=== PATIENT | male | born 1965 | race Caucasian/White ===

== ENCOUNTER → 2017-03-01 13:58 | Outpatient (CLI) | payer BC, SELFPAY ==
--- NOTE | 2017-03-01 | XR_ITS ---
XR foot LT min 3V HISTORY: ITS.REASON: BILATERAL FOOT PAIN ORDERING PHYSICIAN: Renay Cross DPM PATIENT AGE: 51 years COMPARISON: None FINDINGS: Weightbearing views are performed. There is mild pes planus. There is some sclerosis with osteoarthritic change of the anterior subtalar joint as well as the calcaneocuboid joint. No fracture or dislocation. No lytic change. IMPRESSION: Mild pes planus with osteoarthritic change of the calcaneocuboid joint and anterior subtalar joint
--- NOTE | 2017-03-01 | XR_ITS ---
XR foot RT min 3V HISTORY: ITS.REASON: BILATERAL FOOT PAIN ORDERING PHYSICIAN: Renay Cross DPM PATIENT AGE: 51 years COMPARISON: None FINDINGS: Weightbearing views are performed. There is moderate medial subluxation of the navicular with osteoarthritic changes of the talonavicular joint and navicular cuneiform joint as well as the first metatarsal tarsal joint. There is moderate pes planus with hypertrophic changes dorsally of the distal talus, navicular, and cuneiform. No acute fracture or destructive process. A calcific density is present lateral to the base of the first metatarsal suggesting an osteophyte. IMPRESSION: Pes planus with medial subluxation of the navicular with osteoarthritic changes of the midfoot
== END ==
PROVIDERS: PCP Emergency Medicine; Visit Provider Podiatrist
DX: M79.671 Pain in right foot (principal); M79.672 Pain in left foot
CPT/HCPCS: 73630

== ENCOUNTER → 2017-03-11 15:12 | Outpatient (REF) | payer BC, SELFPAY ==
[2017-03-11 20:16] LABS: Amphetamine/Metha Screen,Urine Negative ng/mL (<1000); Barbiturates Screen,Urine Negative ng/mL (<200); Benzodiazepines Screen,Urine Positive ng/mL (200); Cannabinoid Screen,Urine Positive ng/mL (<50); Cocaine Screen,Urine Negative ng/g (<300); Methadone Screen,Urine Negative ng/mL (<300); Opiate Screen,Urine Positive ng/mL (<300); Phencyclidine Screen,Urine Negative ng/mL (<25)
== END ==
LOC: LAB 15:12
PROVIDERS: Visit Provider Nurse Practitioner Family
DX: Z79.899 Other long term (current) drug therapy (principal)
CPT/HCPCS: 80305

== ENCOUNTER → 2017-03-18 09:21 | Outpatient (POV) | payer BC, SELFPAY | PROVIDERS: Visit Provider Podiatrist | DX: Z00.00 Encounter for general adult medical examination without abnormal findings (principal) ==

== ENCOUNTER → 2017-04-29 11:02 | Outpatient (POV) | payer BC, SELFPAY | PROVIDERS: PCP Podiatrist; Visit Provider Podiatrist | DX: Z00.00 Encounter for general adult medical examination without abnormal findings (principal) ==

== ENCOUNTER → 2018-06-12 10:57 | Outpatient (CLI) | payer BC, SELFPAY ==
--- NOTE | 2018-06-12 11:01 | FL_ITS ---
FL barium swallow modified: 06/12/2018 11:01 AM CLINICAL HISTORY: Traumatic brain injury, dysphasia ORDERING PHYSICIAN: Referral Provider, PATIENT AGE: 53 years Comparison: None TECHNIQUE: Patient administered varying consistencies of barium contrast, while viewed in lateral position under real-time fluoroscopy with cine recording. FLUOROSCOPY TIME: 3 minutes The study was performed in conjunction with speech pathologist. Please see that report & recommendations. FINDINGS: Patient was given varying consistencies of barium. There is mild penetration into the that she will with thin liquids Strahl. No tracheal aspiration is evident. There is some residual was some difficulty in bolus formation and moderate residual with full-thickness. IMPRESSION: Its tibial penetration with thin liquids with straw with moderate residual Please see speech pathologist report and recommendations.
== END ==
PROVIDERS: PCP Emergency Medicine; Visit Provider Physical Medicine & Rehabilitation
DX: S06.9X0A Unspecified intracranial injury without loss of consciousness, initial encounter (principal); R26.9 Unspecified abnormalities of gait and mobility
CPT/HCPCS: 70371

== ENCOUNTER → 2018-07-13 14:09 | Outpatient (CLI) | payer BC, SELFPAY ==
--- NOTE | 2018-07-13 14:15 | MR_ITS ---
MR cervical spine wo con, MR 3-d myelogram/MRCP HISTORY: RT hand numbness. RT hand and shoulder pain. ITS.REASON: CERVICAL FRACTURE, NUMBNESS AND TINGLING RT HAND ORDERING PHYSICIAN: Kendal Weston PATIENT AGE: 53 years Comparison: CT 09-23-16 TECHNIQUE: Standard multiplanar multiecho sequences are performed without contrast. 3-D MIP and myelographic images are also rendered and reviewed FINDINGS: There is generalized motion artifact which somewhat decreases fine detail. There is normal alignment. The craniocervical junction has an unremarkable appearance. C2-C3: Mild degenerative disc disease. C3-C4: Mild degenerative disc disease with minimal bulging disc. C4-C5: Mild degenerative disc disease. Mild left foraminal narrowing from uncovertebral and facet hypertrophy C5-C6: Moderate degenerative disc disease C6-C7: Moderate degenerative disc disease with endplate hypertrophic change. C7-T1: Unremarkable. No disc herniation or canal stenosis. No acute fracture. IMPRESSION: Multilevel degenerative disc disease as described above. No disc herniation or canal stenosis
== END ==
PROVIDERS: PCP Emergency Medicine; Referring Provider Nurse Practitioner Family; Visit Provider Nurse Practitioner Family
DX: S12.100A Unspecified displaced fracture of second cervical vertebra, initial encounter for closed fracture (principal); S12.9XXA Fracture of neck, unspecified, initial encounter; G95.9 Disease of spinal cord, unspecified
CPT/HCPCS: 72141; 76376

== ENCOUNTER 2018-08-07 12:00 | Outpatient (RCR) | payer BC, SELFPAY ==
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
== END 2018-08-07 12:05 | disposition home or self-care (01) ==
LOC: ST 12:00
DX: S06.9X0A Unspecified intracranial injury without loss of consciousness, initial encounter (principal)
CPT/HCPCS: 92507; 92523; 92611

== ENCOUNTER 2018-08-18 11:00 | Outpatient (RCR) | payer BC, SELFPAY | END 2018-08-18 11:05 | disposition home or self-care (01) | LOC: PT 11:00 | DX: R26.9 Unspecified abnormalities of gait and mobility (principal); M54.5 Low back pain; S06.9X0A Unspecified intracranial injury without loss of consciousness, initial encounter; V89.2XXA Person injured in unspecified motor-vehicle accident, traffic, initial encounter | CPT/HCPCS: 97010; 97014; 97110; 97112; 97116; 97163; 97164; G0283 ==

== ENCOUNTER → 2018-08-18 13:35 | Outpatient (CLI) | payer BC, SELFPAY ==
--- NOTE | 2018-08-18 13:40 | MR_ITS ---
MR shoulder RT wo/w con HISTORY:Right shoulder pain, limited range of motion, prior injury ITS.REASON: right shoulder pain ORDERING PHYSICIAN: Sathish Clayton MD PATIENT AGE: 53 years Comparison: None TECHNIQUE: Standard multiplanar multiecho sequences are performed without and with gadolinium enhancement. Contrast. FINDINGS: There is thickening of the supraspinatus tendon with increased T2 signal distally consistent with tendinopathy/tendinosis. There is fraying of the undersurface of the supraspinatous tendon suggesting partial tear. The infraspinatus, subscapularis, and teres minor tendons appear intact. Cortical irregularity involves the humeral head laterally at the region of the insertion of the supraspinatus tendon with some subcortical cystic change at this area consistent with degenerative changes. The bicipital tendon is in place. There does appear to be a tear of the anterior glenoid labrum superiorly/SLAP injury. A small amount fluid around the bicipital tendon sheath. There are degenerative changes of the acromioclavicular joint. There is some mild enhancement of the AC joint suggesting some underlying inflammatory change IMPRESSION: 1. Tendinopathy/tendinosis of the supraspinatus tendon with fraying along the undersurface of the supraspinatus tendon consistent with partial tear. A complete tear with tendinous and muscular retraction is NOT identified 2. SLAP tear of the anterior glenoid labrum. 3. Degenerative changes of the acromioclavicular joint. Subarticular cystic change of the humeral head consistent with degenerative change
== END ==
PROVIDERS: PCP Emergency Medicine; Visit Provider Emergency Medicine
DX: M25.511 Pain in right shoulder (principal)
CPT/HCPCS: 73223; A9576

== ENCOUNTER 2018-08-22 11:00 | Outpatient (RCR) | payer BC, SELFPAY ==
--- NOTE | 2018-06-19 11:30 | SW/DCPLANNER ---
Received phone call from RAILWAY SIGNAL OPERATOR (Cecilia Hagen) stating that this patient is interested in drug/alcohol resources for outpatient services at this time. I did speak with patient during his OT session and he has stated that he is interested in [facility] in [place]. I spoke with patients mother whom was also present during my visit. I informed patients mother regarding process for making appointment for [facility] and that patient would need to speak with him. Patients mother stated that she would assist patient in calling and making appointment. My name and phone number along with other resources: AA services in [place], have been presented to this patient.
== END 2018-08-22 11:05 | disposition home or self-care (01) ==
LOC: OT 11:00
DX: S06.9X0A Unspecified intracranial injury without loss of consciousness, initial encounter (principal); R26.9 Unspecified abnormalities of gait and mobility; M54.5 Low back pain; V89.2XXA Person injured in unspecified motor-vehicle accident, traffic, initial encounter
CPT/HCPCS: 97110; 97140; 97164; 97166

== ENCOUNTER → 2018-09-25 13:50 | Outpatient (CLI) | payer BC, SELFPAY ==
--- NOTE | 2018-09-25 13:52 | FL_ITS ---
PROCEDURE: FL BARIUM SWALLOW MODIFIED CLINICAL INDICATION: dysphasia COMPARISON: No exams were available for comparison TECHNIQUE: Patient administered varying consistencies of barium contrast, while viewed in lateral position under real-time fluoroscopy with cine recording. FLUOROSCOPY TIME: The study was performed in conjunction with speech pathologist. Please see that report & recommendations. FINDINGS: Patient was given varying consistencies of barium. No evidence tibia penetration or tracheal aspiration IMPRESSION: Unremarkable modified barium swallow. Please see speech pathologist report and recommendations. Dictated by: Watson Burk MD 09/25/2018 14:43 Signed by: <Electronically signed by Watson Burk MD in [place]> 09/25/2018 14:43
--- NOTE | 2018-09-25 14:54 | HMH.SLMBS2 ---
Speech & Language Evaluation Speech/Language Mod Barium Swallow Start: 09/25/18 14:41 Freq: once Status: Complete Protocol: Document 09/25/18 14:41 SADE (Rec: 09/25/18 14:54 SADE [id number]) [facility] Recommendations Diet Dietary Recommendations Regular,Thin Liquids Treatment/Strategies Treatment Recommendation Vocal Cord Adduction Exer Strategy/Precaution Recommend Sitting Upright (90 deg),Chin Tuck,Small Bites and Sips, Alternate Liquids/Solids Mod Barium Swallow Impressions Summary and Impressions Oral Phase Impression No Impairment (WFL) Oral Phase Summary No impairments noted in oral phase noted. Pharyngeal Phase Impression Mild Impairment Pharyngeal Phase Summary Mohit penetrated with thin liquids and aspirated on thin liquids when given large volume to swallow pills. Chin tuck improved swallow of thin liquids. Speech/Language MBS Assessment/Goals/Plan Assessment Date of Evaluation: 09/25/18 Evaluation Type Initial Certification Assessment/Problems Dysphagia Does Patient Qualify for Service Yes Qualify/Failure Comment Due to aspiration of thin liquids, it is recommended that Mohit be seen in outpatient therapy. Recommendations PHYSICIAN CERTIFICATION: The specified therapy services are required, authorized, and reviewed every 30 days. Pt will be seen # times/week 1 for # weeks 4 Diet Recommendations Normal Liquid Type Recommendations Normal/Thin SL Swallow Guidelines High aspiration risk Crush Meds Small pills w/applesauce,Small OK/Crush large pill Dysphagia Swallow Precautions/Strategies Sitting Upright (90 deg),Chin Tuck,Small Bites and Sips, Alternate Liquids/Solids Plan Anticipate reaching STG in # weeks 2 Anticipate reaching LTG in # weeks 4 Pt/Guardian verbally ack understanding Yes of dx/prognosis/goals G -code Required No STG-Asp During/Laryngeal Closure Use chin-down position w/wo cues #trials 3 Use Valsalva maneuver w/wo cues in # 5 trials STG-Asp Aft/[place]-Laryng elevation Produce /i/ in continuous fashion, incl. 10 fasetto in # trials Heel Cutter Goals Diet Regular with Liquids Thin Liquids Mod Barium Swallow Setup Exam Setup Radiologist Watson Burk Level of Consciousness Awake,Alert,Appropriate,
== END ==
PROVIDERS: PCP Emergency Medicine; Visit Provider Emergency Medicine
DX: R47.02 Dysphasia (principal)
CPT/HCPCS: 70371; 92611

== ENCOUNTER 2018-10-03 13:41 | Outpatient (RCR) | payer BC, SELFPAY ==
--- NOTE | 2018-10-03 14:40 | HMH.SLDYSPHA ---
Speech & Language Evaluation Speech/Language Dysphagia Evaluation Start: 10/03/18 14:22 Freq: ONCE Status: Active Protocol: Document 10/03/18 14:22 SADE (Rec: 10/03/18 14:40 SADE [id number]) Dysphagia Assess/Goals/Plan Assessment Date of Evaluation: 10/03/18 Evaluation Type Initial Certification Assessment/Problems Dysphagia Does Patient Qualify for Service Yes Qualify/Failure Comment MBS reports aspiration with thin liquids. Recommendations PHYSICIAN CERTIFICATION: The specified therapy services are required, authorized, and reviewed every 30 days. Pt will be seen # times/week 1 for # weeks 4 Diet Recommendations Normal Liquid Type Recommendations Normal/Thin SL Swallow Guidelines Standard Aspiration Prec. Dysphagia Swallow Precautions/Strategies Sitting Upright (90 deg),Chin Tuck,Supraglottic Swallow, Small Bites and Sips,Alternate Liquids/Solids Plan Pt/Guardian verbally ack understanding Yes of dx/prognosis/goals G -code Required No STG-Asp Aft/Laryn.Vest.-Mistiming Use chin-down position for specified 3 consistencies w/wo cues in # trials Use Supraglottic swallow for specified 3 consitencies w/wo cues in #trials Produce i/in continuous fashion, incl. 10 fasetto in # trials Mcfp Goals Diet Regular with Liquids Thin Liquids General Information General Current Food Consistancy Regular,Thin Liquids Denture Type Full- Upper & Lower Facial Symmetry Symmetrical Patient Orientation Person,Place,Time Ability to Follow Directions Excellent Oral Expression Ability No Impairment Dysphagia:Food Presentation Evaluation Food Type Pureed,Chopped,Regular,Liquid Dysphagia Evaluation Summary Mohit was given the following consistencies: thins via straw and open cup, pudding, pureed , mechanical soft, regular. No signs of dysphagia were noted however based on modified barium swallow study, aspiration was noted iwth thin liquids. Mohit was given HEP to complete at home to increase strength of laryngeal and tongue muscles. Stroke Dysphagia Assessment PHYSICIAN CERTIFICATION: I certify the specified therapy services for Mohit Brunson are required, authorized, and reviewed every 30 days.
== END 2018-10-03 13:45 | disposition home or self-care (01) ==
LOC: ST 13:41
PROVIDERS: Visit Provider Emergency Medicine
DX: R13.10 Dysphagia, unspecified (principal)
CPT/HCPCS: 92610

== ENCOUNTER → 2018-11-13 13:29 | Outpatient (CLI) | payer BC, SELFPAY ==
--- NOTE | 2018-11-13 13:32 | XR_ITS ---
PROCEDURE: XR SHOULDER RT MIN 2V CLINICAL INDICATION: ap, scapular Y, anxillary views Pain following injury FINDINGS: No acute fracture or dislocation. Minimal calcification at the joint space of the AC joint. IMPRESSION: No acute findings. Dictated by: Watson Burk MD 11/13/2018 16:38 Electronically signed by Watson Burk MD in [place] 11/13/2018 16:38
== END ==
PROVIDERS: PCP Emergency Medicine; Visit Provider Orthopaedic Surgery
DX: M25.511 Pain in right shoulder (principal)
CPT/HCPCS: 73030

== ENCOUNTER → 2019-07-11 13:03 | Outpatient (CLI) | payer BC, SELFPAY ==
[2019-07-11 14:20] LABS: Basophils # 0.1 K/mm3 (0-0.2); Eosinophils # 0.2 K/mm3 (0.0-0.4); Eosinophils % 2.7 % (0.1-12.0); Hematocrit 49.1 % (42.0-52.0); Hemoglobin 17.2 g/dL (14.1-18.0); Lymphocytes # 1.9 K/mm3 (0.7-4.5); Lymphocytes % 30.6 % (10-50); Mean Corpuscular Hemoglobin 34.4 pg (27.0-31.2); Mean Corpuscular Volume 98.5 fl (80-94); Mean Platelet Volume 9.3 fl (7.4-10.4); Monocytes # 0.4 K/mm3 (0.1-1.0); Monocytes % 6.4 % (1.7-9.3); Neutrophils # 3.7 K/mm3 (1.8-7.8); Neutrophils % 59.4 % (37.0-80.0); Platelet Count 191 K/mm3 (142-424); Red Blood Count 4.99 M/mm3 (4.60-6.20); Red Cell Distribution Width 13.2 % (11.5-17.5); White Blood Count 6.3 K/mm3 (4.8-10.8)
[2019-07-11 14:33] LABS: Chloride 105 mmol/L (98-107)
[2019-07-11 14:34] LABS: Potassium 3.9 mmoL/L (3.5-5.1); Sodium 142 mmol/L (136-145)
[2019-07-11 14:36] LABS: Alanine Aminotransferase 132 U/L (12-78); Anion Gap 14.9 mEq/L (5-15); Aspartate Amino Transferase 92 U/L (17-59); Bilirubin,Total 1.6 mg/dl (0.2-1.3); Blood Urea Nitrogen 19 mg/dl (9-20); Carbon Dioxide 26 mmol/L (22.0-30.0); Estimated Glomerular Filt Rate 100 ml/min (>60); GFR (African American) 121 ML/MIN (>60)
[2019-07-11 14:37] LABS: Albumin Level 4.5 g/dl (3.5-5.0); Albumin/Globulin Ratio 1.1 (1.1-1.8); Alkaline Phosphatase 67 U/L (38-126); Calcium 9.3 mg/dl (8.4-10.2); Chol/HDL Ratio 5.1 (1-3.5); Cholesterol 163 mg/dl (140-200); Globulin 4.1 g/dL (1.3-3.2); Glucose 115 mg/dl (74-100); HDL Cholesterol 32 mg/dl (40-60); Total Protein,Serum 8.6 g/dl (6.3-8.2); Triglycerides 138 mg/dl (30-150); VLDL Cholesterol 28 mg/dL (0-40)
[2019-07-11 15:26] LABS: Direct LDL Cholesterol 123.68 mg/dL (100-129)
[2019-07-11 15:47] LABS: Thyroid Stimulating Hormone 0.52 uIU/mL (0.465-4.68)
[2019-07-11 17:22] LABS: Free T4 (Free Thyroxine) 1.27 ng/dl (0.78-2.19)
[2019-07-12 10:01] LABS: Vitamin D 25 Hydroxy 36.4 ng/mL (30.0-100.0)
== END ==
PROVIDERS: Visit Provider Emergency Medicine
DX: S06.9X9A Unspecified intracranial injury with loss of consciousness of unspecified duration, initial encounter (principal)
CPT/HCPCS: 80053; 80061; 82652; 84439; 84443; 85025

== ENCOUNTER → 2019-07-19 12:53 | Outpatient (CLI) | payer BC, SELFPAY ==
--- NOTE | 2019-07-19 12:54 | FL_ITS ---
PROCEDURE: FL BARIUM SWALLOW MODIFIED CLINICAL INDICATION: dysphagia COMPARISON: No exams were available for comparison TECHNIQUE: Patient administered varying consistencies of barium contrast, while viewed in lateral position under real-time fluoroscopy with cine recording. FLUOROSCOPY TIME:1 minutes and 47 seconds The study was performed in conjunction with speech pathologist. Please see that report & recommendations. FINDINGS: Patient was given varying consistencies of barium. There was mild delay with premature spillage. No aspiration or penetration. There is mild residual.. IMPRESSION: No aspiration or penetration. There is premature spillage with mild residual Please see speech pathologist report and recommendations. Dictated by: Watson Burk MD 07/25/2019 17:36 Electronically signed by Watson Burk MD in [place] 07/25/2019 17:36
--- NOTE | 2019-07-19 12:54 | XR_ITS ---
PROCEDURE: XR CHEST 2V CLINICAL HISTORY: shortness of breath COMPARISON: No exams were available for comparison FINDINGS: The cardiomediastinal silhouette and pulmonary vascularity are within normal limits. There are low lung volumes. No lobar consolidation or collapse. No acute bony abnormalities. IMPRESSION: No acute findings. Dictated by: Watson Burk MD 07/19/2019 13:42 Electronically signed by Watson Burk MD in [place] 07/19/2019 13:42
--- NOTE | 2019-07-19 13:59 | HMH.SLMBS2 ---
Speech & Language Evaluation Speech/Language Mod Barium Swallow Start: 07/19/19 13:44 Freq: once Status: Complete Protocol: Document 07/19/19 13:44 SADE (Rec: 07/19/19 13:59 SADE [id number]) General Information General Current Food Consistancy Mechanical Soft,Thin Liquids Dentition Lower Only,Partial - Upper Oxygen Status Room Air Facial Symmetry Patient Baseline Patient Orientation Person,Place,Time,Situation Ability to Follow Directions Good Communication Ability Moderate Impairment MBS Recommendations Diet Dietary Recommendations Mechanical Soft,Thin Liquids Treatment/Strategies Treatment Recommendation Chewing Exercises,Compens. Strategy Educat.,Vocal Cord Adduction Exer Strategy/Precaution Recommend Sitting Upright (90 deg) Mod Barium Swallow Impressions Summary and Impressions Oral Phase Impression Mild Impairment Oral Phase Summary Mohit has a new upper plate that he has yet to master eating with. He exhibits decreased mastication with mechanical soft and regular consistencies. Pharyngeal Phase Impression Mild Impairment Pharyngeal Phase Summary Mohit exhibited flash penetration with thin wash however aspiration was not noted. He exhibited pharyngeal residue in valleculae but cleared with a dry swallow. Speech/Language MBS Assessment/Goals/Plan Assessment Date of Evaluation: 07/19/19 Evaluation Type Initial Certification Assessment/Problems Dysphagia Does Patient Qualify for Service Yes Qualify/Failure Comment It is recommended that Mr. Brunson be referred for outpatient speech therapy targeting dysphagia. Recommendations PHYSICIAN CERTIFICATION: The specified therapy services are required, authorized, and reviewed every 30 days. Pt will be seen # times/week 2 for # weeks 4 Diet Recommendations Mechanical Soft Liquid Type Recommendations Normal/Thin SL Swallow Guidelines Alt bite w/sip thru meal, Standard Aspiration Prec., Crush meds as allowed* Crush Meds Small OK/Crush large pill Dysphagia Swallow Precautions/Strategies Turn Head Left,Chin Tuck,Small Bites and Sips,Alternate Liquids/Solids Plan Anticipate reaching STG in # weeks 2
== END ==
PROVIDERS: PCP Emergency Medicine; Visit Provider Emergency Medicine
DX: R06.02 Shortness of breath (principal); R13.10 Dysphagia, unspecified
CPT/HCPCS: 70371; 71046; 92611

== ENCOUNTER → 2019-07-19 13:33 | Outpatient (CLI) | payer BC, SELFPAY ==
[2019-07-20 10:13] LABS: Hep A Ab, IgM Negative (Negative); Hepatitis B Core Antibody IgM Negative (Negative); Hepatitis B Surface Antigen Negative (Negative)
[2019-07-20 11:18] LABS: Hepatitis C Antibody >11.0 s/co ratio (0.0-0.9)
[2019-07-27 15:10] LABS: HCV Genotype Charge YES; Hepatitis C Genotype 3 (.)
== END ==
PROVIDERS: Emergency Medicine; Visit Provider Physician Assistant
DX: R74.8 Abnormal levels of other serum enzymes (principal)
CPT/HCPCS: 36415; 80074; 87522; 87902

== ENCOUNTER 2019-08-29 11:00 | Outpatient (RCR) | payer BC, SELFPAY ==
--- NOTE | 2019-08-07 18:18 | HMH.SLDYSPHA ---
Speech & Language Evaluation Speech/Language Dysphagia Evaluation Start: 08/07/19 16:09 Freq: ONCE Status: Active Protocol: Document 08/07/19 10:50 CMAY (Rec: 08/07/19 16:38 CMAY [id number]) Dysphagia Assess/Goals/Plan Assessment Date of Evaluation: 08/07/19 Evaluation Type Initial Certification Assessment/Problems Dysphagia Does Patient Qualify for Service Yes Qualify/Failure Comment Based on the results of today' s evaluation and previous MBSS completed on 07/19/2019, Mr. Brunson qualifies for ST services to monitor diet and to complete swallowing exercises. Recommendations PHYSICIAN CERTIFICATION: The specified therapy services are required, authorized, and reviewed every 30 days. Pt will be seen # times/week 1 for # weeks 4 Diet Recommendations Mechanical Soft Liquid Type Recommendations Normal/Thin SL Swallow Guidelines Alt bite w/sip thru meal, Standard Aspiration Prec., Crush meds as allowed*,Eat at slow rate Dysphagia Swallow Precautions/Strategies Sitting Upright (90 deg),Chin Tuck,Small Bites and Sips, Alternate Liquids/Solids Plan Anticipate reaching STG in # weeks 4 Anticipate reaching LTG in # weeks 4 Pt/Guardian verbally ack understanding Yes of dx/prognosis/goals Pt/Guardian verbally ack understanding Yes of/consent to tx prog G -code Required No STG-Other Comment/Non-Specific 1.) Patient will accurately complete 80% of lingual exercises, tongue-base retraction exercises, base of tongue exercises, and hyolaryngeal/pharyngeal exercises provided in order to strengthen swallowing muscles and improve safety during intake. 2.) Patient will recall and utilize swallowing safety strategies during intake based on ST observation and caregiver report 100% of opportunites with minimal verbal prompts/reminders in place. Education Instructions provided Education provided to patient regarding swallowing safety
== END 2019-08-29 12:00 | disposition home or self-care (01) ==
LOC: ST 11:00
PROVIDERS: PCP Emergency Medicine; Visit Provider Physician Assistant
DX: R13.10 Dysphagia, unspecified (principal)
CPT/HCPCS: 92507; 92526; 92610

== ENCOUNTER → 2019-12-19 13:37 | Outpatient (CLI) | payer BC, SELFPAY ==
[2019-12-19 13:39] LABS: MANUAL DIFFERENTIAL MANUAL DIFFERENTIAL (MANUAL DIFF)
[2019-12-19 13:55] LABS: Basophils # 0.1 K/mm3 (0-0.2); Basophils % 0.7 % (0.1-2.0); Eosinophils # 0.2 K/mm3 (0.0-0.4); Eosinophils % 3.1 % (0.1-12.0); Hematocrit 47.4 % (42.0-52.0); Hemoglobin 15.9 g/dL (14.1-18.0); Lymphocytes # 1.9 K/mm3 (0.7-4.5); Lymphocytes % 31.2 % (10-50); Mean Corpuscular HGB Conc 33.5 g/dL (31.8-35.4); Mean Corpuscular Hemoglobin 33.6 pg (27.0-31.2); Mean Corpuscular Volume 100.1 fl (80-94); Mean Platelet Volume 8.5 fl (7.4-10.4); Monocytes # 0.5 K/mm3 (0.1-1.0); Monocytes % 7.3 % (1.7-9.3); Neutrophils # 3.6 K/mm3 (1.8-7.8); Neutrophils % 57.7 % (37.0-80.0); Platelet Count 162 K/mm3 (142-424); Red Blood Count 4.73 M/mm3 (4.60-6.20); Red Cell Distribution Width 12.9 % (11.5-17.5); White Blood Count 6.2 K/mm3 (4.8-10.8)
[2019-12-19 14:23] LABS: Alanine Aminotransferase 139 U/L (12-78); Albumin Level 4.2 g/dl (3.5-5.0); Alkaline Phosphatase 72 U/L (38-126); Aspartate Amino Transferase 107 U/L (17-59); Bilirubin,Total 1.3 mg/dl (0.2-1.3); Blood Urea Nitrogen 17 mg/dl (9-20); Calcium 9.3 mg/dl (8.4-10.2); Carbon Dioxide 27 mmol/L (22.0-30.0); Chloride 105 mmol/L (98-107); Estimated Glomerular Filt Rate 100 ml/min (>60); GFR (African American) 121 ML/MIN (>60); Globulin 4.2 g/dL (1.3-3.2); Glucose 133 mg/dl (74-100); Sodium 140 mmol/L (136-145); Total Protein,Serum 8.4 g/dl (6.3-8.2)
[2019-12-19 17:02] LABS: Eosinophils % 1 % (0-3); Lymphocytes % 30 % (10-50); Macrocytosis 1+; Monocytes % 7 % (2-9); Neutrophils % 62 % (42-76); Platelet Estimate Normal; RBC Morphology Normal; Total Cells Counted 100
== END ==
PROVIDERS: Visit Provider Otolaryngology
DX: R13.10 Dysphagia, unspecified (principal)
CPT/HCPCS: 36415; 80053; 85007; 85014; 85018; 85048; 85049

== ENCOUNTER → 2019-12-20 09:01 | Outpatient (CLI) | payer BC, SELFPAY ==
--- NOTE | 2019-12-20 09:01 | FL_ITS ---
PROCEDURE: FL BARIUM SWALLOW CLINICAL INDICATION: hx trach and TBI Trouble swallowing, dysphagia with liquids and solids COMPARISON: CT CT SOFT TISSUE NECK WO/W CON from 12/20/2019 TECHNIQUE: In the upright position the patient was observed to swallow barium in both the AP and lateral view. The cervical esophagus was examined under fluoroscopy with images obtained. The patient was then placed prone in the right anterior oblique position and was observed to swallow barium with Valsalva technique . FLUOROSCOPY TIME: 1 minutes and 17 seconds FINDINGS: There was no evidence of aspiration. There was normal peristalsis. No filling defects or mucosal abnormalities. No masses or strictures. No hiatal hernia. IMPRESSION: Unremarkable barium swallow. Dictated by: Watson Burk MD 12/20/2019 17:40 Watson Burk MD in [place] 12/20/2019 17:40
--- NOTE | 2019-12-20 09:01 | CT_ITS ---
PROCEDURE: CT SOFT TISSUE NECK WO/W CON CLINICAL HISTORY: dysphagia hx of trach tbi COMPARISON: CT CSWO CT CERVICAL SPINE W/O CONT from 09/23/[address] head/brain wo con from 10/09/2017 TECHNIQUE: Oral Contrast: None IV Contrast: 75 mL Isovue 370 Axial images obtained with sagittal and coronal reformats. All CT scans at the facility use one or more dose reduction, viz: automated exposure control, ma/kV adjustment per patient size (including targeted exams where dose is matched to indication, i.e. head), or iterative reconstruction technique. FINDINGS: The nasopharynx, uvula, oropharynx, hypopharynx, epiglottis and glottic region all have an unremarkable appearance. There are few small cervical lymph nodes. No dominant adenopathy. No abnormal fluid collection or abscess. Skin defect is present at the cricoid region consistent with patient's history of prior tracheostomy. No evidence of residual fistula. The lung apices are clear. No mastoid effusion or sinus air-fluid level is evident. There are mild degenerative changes in the cervical spine. Minimal mucosal thickening involves the frontal ethmoid sinus area IMPRESSION: No acute finding. No abscess mass or adenopathy. Prior tracheostomy Dictated by: Watson Burk MD 12/21/2019 09:55 Watson Burk MD in [place] 12/21/2019 09:55
== END ==
PROVIDERS: PCP Emergency Medicine; Visit Provider Otolaryngology
DX: R13.10 Dysphagia, unspecified (principal)
CPT/HCPCS: 70492; 74220; Q9967

== ENCOUNTER → 2020-05-02 14:22 | Outpatient (CLI) | payer BC, SELFPAY ==
[2020-05-02 15:10] LABS: Basophils # 0.1 K/mm3 (0-0.2); Basophils % 0.7 % (0.1-2.0); Eosinophils # 0.3 K/mm3 (0.0-0.4); Eosinophils % 3.8 % (0.1-12.0); Hemoglobin 16.3 g/dL (14.1-18.0); Lymphocytes % 26.6 % (10-50); Mean Corpuscular HGB Conc 33.9 g/dL (31.8-35.4); Mean Corpuscular Hemoglobin 33.3 pg (27.0-31.2); Mean Corpuscular Volume 98.1 fl (80-94); Mean Platelet Volume 8.3 fl (7.4-10.4); Monocytes # 0.4 K/mm3 (0.1-1.0); Monocytes % 5.5 % (1.7-9.3); Neutrophils # 4.7 K/mm3 (1.8-7.8); Neutrophils % 63.4 % (37.0-80.0); Platelet Count 192 K/mm3 (142-424); Red Blood Count 4.89 M/mm3 (4.60-6.20); Red Cell Distribution Width 13.4 % (11.5-17.5); White Blood Count 7.4 K/mm3 (4.8-10.8)
[2020-05-02 16:16] LABS: Alanine Aminotransferase 150 U/L (12-78); Albumin Level 4.5 g/dl (3.5-5.0); Albumin/Globulin Ratio 1.1 (1.1-1.8); Alkaline Phosphatase 69 U/L (38-126); Anion Gap 14.4 mEq/L (5-15); Aspartate Amino Transferase 112 U/L (17-59); Bilirubin,Total 0.8 mg/dl (0.2-1.3); Blood Urea Nitrogen 20 mg/dl (9-20); Calcium 9.7 mg/dl (8.4-10.2); Carbon Dioxide 24 mmol/L (22.0-30.0); Chloride 103 mmol/L (98-107); Cholesterol 195 mg/dl (140-200); Estimated Glomerular Filt Rate 87 ml/min (>60); GFR (African American) 106 ML/MIN (>60); Globulin 4.2 g/dL (1.3-3.2); Glucose 126 mg/dl (74-100); HDL Cholesterol 28 mg/dl (40-60); Potassium 4.4 mmoL/L (3.5-5.1); Sodium 137 mmol/L (136-145); Total Protein,Serum 8.7 g/dl (6.3-8.2); Triglycerides 143 mg/dl (30-150); VLDL Cholesterol 29 mg/dL (0-40)
[2020-05-02 16:27] LABS: Direct LDL Cholesterol 131.68 mg/dL (100-129)
[2020-05-02 16:32] LABS: Free T4 (Free Thyroxine) 1.17 ng/dl (0.78-2.19)
[2020-05-02 16:38] LABS: 25-OH Vitamin D, Total 39.3 ng/mL (30-100)
[2020-05-02 16:47] LABS: Thyroid Stimulating Hormone 0.56 uIU/mL (0.465-4.68)
== END ==
PROVIDERS: Visit Provider Emergency Medicine
DX: R60.9 Edema, unspecified (principal); E55.9 Vitamin D deficiency, unspecified; Z79.899 Other long term (current) drug therapy
CPT/HCPCS: 36415; 80053; 80061; 82306; 84439; 84443; 85025

== ENCOUNTER → 2020-05-13 13:58 | Outpatient (CLI) | payer BC, SELFPAY ==
[2020-05-13 14:51] LABS: INR 1.05 (0.9-1.1); Prothrombin Time 12.3 seconds (10.1-12.5)
[2020-05-13 16:34] LABS: Vitamin B12 847 pg/mL (239-931)
[2020-05-14 09:13] LABS: Hemoglobin A1C 5.5 % (4.0-6.0)
[2020-05-16 22:40] LABS: Hepatitis C Genotype 3 (.)
== END ==
PROVIDERS: Visit Provider Emergency Medicine
DX: B19.20 Unspecified viral hepatitis C without hepatic coma (principal); R73.9 Hyperglycemia, unspecified; R71.8 Other abnormality of red blood cells
CPT/HCPCS: 36415; 82607; 82746; 83036; 85610; 87522

== ENCOUNTER → 2020-05-26 13:06 | Outpatient (CLI) | payer BC, SELFPAY ==
--- NOTE | 2020-05-26 13:07 | FL_ITS ---
PROCEDURE: FL BARIUM SWALLOW MODIFIED CLINICAL INDICATION: dysphagia COMPARISON: No exams were available for comparison TECHNIQUE: Patient administered varying consistencies of barium contrast, while viewed in lateral position under real-time fluoroscopy with cine recording. FLUOROSCOPY TIME:1 minutes and 45 seconds The study was performed in conjunction with speech pathologist. Please see that report & recommendations. FINDINGS: Patient was given varying consistencies of barium. There was some premature spillage and mild residual noted with multiple consistencies. No aspiration or penetration apparent. IMPRESSION: Mild impairment. No aspiration evident. Please see speech pathologist report and recommendations. Dictated by: Watson Burk MD 05/31/2020 09:23 Watson Burk MD in [place] 05/31/2020 09:23
--- NOTE | 2020-05-26 13:46 | HMH.SLMBS2 ---
Speech & Language Evaluation Speech/Language Mod Barium Swallow Start: 05/26/20 13:38 Freq: once Status: Complete Protocol: Document 05/26/20 13:38 SADE (Rec: 05/26/20 13:45 SADE [id number]) General Information General Current Food Consistancy Regular,Thin Liquids Dentition Upper & Lower Dentures Oxygen Status Room Air Facial Symmetry Patient Baseline Patient Orientation Person,Place,Time Ability to Follow Directions Excellent Communication Ability No Impairment MBS Recommendations Diet Dietary Recommendations Regular,Thin Liquids Treatment/Strategies Strategy/Precaution Recommend Sitting Upright (90 deg),No Straw Mod Barium Swallow Impressions Summary and Impressions Oral Phase Impression Mild Impairment Oral Phase Summary Mr. Brunson was given the following consistencies: thins via open cup and straw, pudding, mechanical soft, regular, and pill with thin wash. Premature spillage into the laryngeal vestibule was noted with straws. Pharyngeal Phase Impression Mild Impairment Pharyngeal Phase Summary It was noted that Mr. Brunson had vallecular residue with pill via thin wash. Speech/Language MBS Assessment/Goals/Plan Assessment Date of Evaluation: 05/26/20 Evaluation Type Initial Certification Does Patient Qualify for Service Yes Qualify/Failure Comment Mr. Brunson is a current patient in the outpatient rehab. Recommendations PHYSICIAN CERTIFICATION: The specified therapy services are required, authorized, and reviewed every 30 days. SL Swallow Guidelines Standard Aspiration Prec. Dysphagia Swallow Precautions/Strategies Sitting Upright (90 deg),No Straw,Small Bites and Sips, Alternate Liquids/Solids Plan Pt/Guardian verbally ack understanding Yes of dx/prognosis/goals G -code Required No Mod Barium Swallow Setup Exam Setup Radiologist Watson Burk Level of Consciousness Awake,Alert,Appropriate, Follows Commands Position (degrees) 90 Mod Barium Swallow-Lat View Textures Lateral View Food Presentation Thin Liquid via Cup,Thin Liquid via Straw,Pureed Food- Thick,Ground Food- Regular, Barium Tablet,Regular Food, Pudding Oral Phase Labial Closure No Impairment (WFL) Bolu
== END ==
PROVIDERS: PCP Emergency Medicine; Visit Provider Emergency Medicine
DX: R13.10 Dysphagia, unspecified (principal)
CPT/HCPCS: 70371; 92611

== ENCOUNTER 2020-06-17 13:00 | Outpatient (RCR) | payer BC, SELFPAY ==
--- NOTE | 2020-05-02 13:58 | XR_ITS ---
PROCEDURE: XR CHEST 2V CLINICAL HISTORY: shortness of breath COMPARISON: DX XR CHEST 2V from 07/19/2019 FINDINGS: The cardiomediastinal silhouette and pulmonary vascularity are within normal limits. The lungs are clear without infiltrates, suspicious nodules, or pleural effusions. No acute bony abnormalities. IMPRESSION: No acute findings. Dictated by: Watson Burk MD 05/02/2020 15:51 Watson Burk MD in [place] 05/02/2020 15:51
--- NOTE | 2020-05-02 18:39 | HMH.SLDYSPHA ---
Speech & Language Evaluation Speech/Language Dysphagia Evaluation Start: 05/02/20 16:43 Freq: ONCE Status: Active Protocol: Document 05/02/20 16:43 CARA (Rec: 05/02/20 17:01 CMAY [id number]) Dysphagia Assess/Goals/Plan Assessment Date of Evaluation: 05/02/20 Evaluation Type Initial Certification Assessment/Problems Dysphagia Does Patient Qualify for Service Yes Qualify/Failure Comment Based on the results of today' s evaluation, Mr. Brunson qualifies for ST services to target diet monitoring and compliance with swallowing safety strategies. Recommendations PHYSICIAN CERTIFICATION: The specified therapy services are required, authorized, and reviewed every 30 days. Pt will be seen # times/week 1 for # weeks 12 Diet Recommendations Mechanical Soft with Chopped Meats Liquid Type Recommendations Normal/Thin SL Swallow Guidelines Assist w/all meals,Alt bite w/ sip thru meal,Standard Aspiration Prec.,Crush meds as allowed*,Eat at slow rate Dysphagia Swallow Precautions/Strategies Sitting Upright (90 deg),No Straw,Liquids from Cup,Small Bites and Sips,Alternate Liquids/Solids Plan Anticipate reaching STG in # weeks 8 Anticipate reaching LTG in # weeks 12 Pt/Guardian verbally ack understanding Yes of dx/prognosis/goals Pt/Guardian verbally ack understanding Yes of/consent to tx prog G -code Required No STG-Other Comment/Non-Specific 1.) Mr. Brunson will participate in diet monitoring and will tolerate LRD with no s/s of penetration/aspiration across 3 sessions. 2.) Mr. Brunson will demonstrate compliance with diet recommendations and swallow safety strategies as evidenced by ST observation and patient /parent verbal report across 3 sessions. 3.) Mr. Brunson will complete a modified barium swallow study (MBSS) to r/o aspiration/ penetration and further assess safety of his swallow. Concrete Craftsman Goals Diet LRD with Liquids Thin Liquids
== END 2020-06-17 13:05 | disposition home or self-care (01) ==
LOC: ST 13:00
PROVIDERS: PCP Emergency Medicine; Visit Provider Emergency Medicine
DX: R13.10 Dysphagia, unspecified (principal)
CPT/HCPCS: 71046; 92526; 92610

== ENCOUNTER 2020-06-21 11:07 | Inpatient (IN) | payer BC, SELFPAY ==
[2020-06-21] VITALS (25 sets, daily range): BP systolic 104–161; BP diastolic 67–104; PULSE 96–109; RESP 14–20; TEMP 36.1–37.5; O2SAT 90–99; BMI 27.2; BMI 29.5
--- NOTE | 2020-06-21 11:17 | CT_ITS ---
PROCEDURE INFORMATION: Exam: CT Abdomen And Pelvis With Contrast Exam date and time: 06/21/2020 11:17 AM Age: 55 years old Clinical indication: Abdominal pain; Localized; Right lower quadrant (rlq); Patient HX: Rlq ttp x 2 days with n/v/d, PT had a barium swallow and stn CT TECHNIQUE: Imaging protocol: Computed tomography of the abdomen and pelvis with contrast. Radiation optimization: All CT scans at this facility use at least one of these dose optimization techniques: automated exposure control; mA and/or kV adjustment per patient size (includes targeted exams where dose is matched to clinical indication); or iterative reconstruction. Contrast material: ISOVUE; Contrast volume: 75 ml; Contrast route: IV; COMPARISON: No relevant prior studies available. FINDINGS: Lungs: Mild subsegmental atelectasis greatest in the posterior lower lungs. No focal consolidation Liver: Micronodular contours of the liver, raising the possibility of cirrhosis, see coronal series 601, image 38. . No hepatomegaly or discrete liver mass. Calcified capsular granuloma series 3, image 45. Gallbladder and bile ducts: Some minimally dense material pooling dependently in the gallbladder series 3, image 56, which could be sludge or low-density stones. No calcified stones. No gallbladder wall thickening or pericholecystic fluid seen. No biliary dilatation. Pancreas: Slight fatty atrophic changes in the pancreas. No ductal dilatation or mass. Spleen: Mild splenomegaly approximate 13.9 cm. Adrenal glands: The adrenal glands are normal. Kidneys and ureters: The kidneys are normal. The ureters are normal. Stomach and bowel: Thickened appearance of the lower right colon which may be due to inflammation or contracted loop. Diverticulosis coli. No definite findings of acute diverticulitis; right lower quadrant phlegmon appears more likely originating from the appendix, less likely a perforated cecal diverticulitis. No acute findings in the small intestine. Prominent thickened, edematous appearance of the visualized esophagus worrisome for esophagitis, or less likely infiltrative neoplasm, see axial series 3 images 2-32. Wall measures up to 9 mm thickness. Appendix: Findings highly suspicious for a perforated appendicitis. Neck of the appendix is thickened and 9 mm on series 3, image 97. There is dense material distal to this in the appendix which could be inspissated barium or appendicoliths. There is retrocecal phlegmon with soft tissue stranding and extraluminal gas bubbles in the mesentery, series 3 images 87-97. No organized pericolic abscess collection. Trace edema fluid in the right pericolic gutter. Intraperitoneal space: Right lower quadrant phlegmon with mesenteric gas bubbles, soft tissue stranding, and trace fluid. No organized abscess collection. No lamont pneumoperitoneum/anterior free air in the peritoneal space. Vasculature: Minimal calcified atherosclerotic plaques in the abdomen and pelvis.There is no aortic aneurysm. No portal venous gas. Lymph nodes: Mild portacaval adenopathy, mild periportal and gastrohepatic adenopathy. Enlarged nodes up to 2.8 x 1.6 cm coronal series 601, image 45 and 2.0 x 1.4 cm series 3, image 50. Urinary bladder: The bladder is normal. Reproductive: Prostate calcifications. No significant prostate enlargement. Seminal vesicles are unremarkable. Bones/joints: Spinal degenerative changes, greatest at L4-L5 with prominent bilateral facet arthropathy, grade 1 degenerative anterolisthesis, severe disc degeneration. There is multilevel degenerative disc disease and spondylosis in the thoracic and lumbar spine. Minimal chronic anterior wedge
[2020-06-21 11:37] LABS: Basophils # 0.1 K/mm3 (0-0.2); Basophils % 0.5 % (0.1-2.0); Eosinophils # 0.1 K/mm3 (0.0-0.4); Eosinophils % 0.6 % (0.1-12.0); Hematocrit 51.6 % (42.0-52.0); Hemoglobin 17.3 g/dL (14.1-18.0); Lymphocytes # 1.6 K/mm3 (0.7-4.5); Mean Corpuscular HGB Conc 33.5 g/dL (31.8-35.4); Mean Corpuscular Hemoglobin 33.4 pg (27.0-31.2); Mean Corpuscular Volume 99.6 fl (80-94); Mean Platelet Volume 8.9 fl (7.4-10.4); Monocytes # 1.6 K/mm3 (0.1-1.0); Monocytes % 6.9 % (1.7-9.3); Neutrophils # 19.1 K/mm3 (1.8-7.8); Platelet Count 195 K/mm3 (142-424); Red Blood Count 5.19 M/mm3 (4.60-6.20); Red Cell Distribution Width 12.7 % (11.5-17.5); White Blood Count 22.4 K/mm3 (4.8-10.8)
[2020-06-21 11:40] LABS: MANUAL DIFFERENTIAL MANUAL DIFFERENTIAL (MANUAL DIFF)
[2020-06-21 11:47] LABS: Alanine Aminotransferase 118 U/L (12-78); Albumin Level 4.9 g/dl (3.5-5.0); Albumin/Globulin Ratio 0.9 (1.1-1.8); Alkaline Phosphatase 82 U/L (38-126); Anion Gap 16.7 mEq/L (5-15); Aspartate Amino Transferase 70 U/L (17-59); Bilirubin,Total 2.6 mg/dl (0.2-1.3); Blood Urea Nitrogen 26 mg/dl (9-20); Calcium 9.9 mg/dl (8.4-10.2); Carbon Dioxide 27 mmol/L (22.0-30.0); Chloride 100 mmol/L (98-107); Creatinine Clearance Estimated 112 mL/min (50-200); Estimated Glomerular Filt Rate 87 ml/min (>60); GFR (African American) 106 ML/MIN (>60); Globulin 5.2 g/dL (1.3-3.2); Glucose 155 mg/dl (74-100); Lipase 39 U/L (23-300); Potassium 3.7 mmoL/L (3.5-5.1); Sodium 140 mmol/L (136-145); Total Protein,Serum 10.1 g/dl (6.3-8.2)
[2020-06-21 12:14] LABS: Lymphocytes % 9 % (10-50); Monocytes % 7 % (2-9); Neutrophils % 84 % (42-76); Total Cells Counted 100
[2020-06-21 12:15] LABS: Platelet Estimate Normal; RBC Morphology Normal
--- NOTE | 2020-06-21 13:40 | PC.NURSE ---
Surgeon transportation department supervisor paged.
--- NOTE | 2020-06-21 13:45 | PC.NURSE ---
Dr Leggett speaking with Dr Fry
--- NOTE | 2020-06-21 13:47 | PC.NURSE ---
Surgery team paged.
--- NOTE | 2020-06-21 13:50 | PC.NURSE ---
Paged [facility] surgery team at [phone] per ER request. [phone] [facility]est[facility] [phone] Madhavi [address]
[2020-06-21 14:12] LABS: Lactic Acid 1.3 mmol/L (0.7-2.1)
--- NOTE | 2020-06-21 14:25 | HMH.ANESCL ---
[facility] Anesthesia Checklist - Patient Identification Patient Identification: Arm Band - Structural Data Admitted From: Home Planned Operative Procedure/s: Appendectomy Consent for Planned Operative Procedure(s) Verified: Yes - NPO Status Verified Time NPO: 00:00 - Airway Assessment C-Spine Mobility Assessed: Yes TMJ Mobility Assessed: Yes Dentition: Poor Dentition (Missing, decay present) - Neurological Assessment Level of Consciousness: Awake Hx Seizures: No Numbness or tingling in extremities: No - Anesthesia Plan Anesthesia Risk discussed: Yes Anesthesia Plan: Verified ASA Class: III Anesthesia Type: General [facility] History Medical History: Reports:: Anxiety, Depression, Seizures Denies:: Aneurysm, Asthma, Cancer, Congestive Heart Failure, Chronic Obstructive Pulmonary Disease (COPD), Cerebrovascular Accident, Diabetes Mellitus Type 1, Diabetes Mellitus Type 2, Gastroesophageal Reflux Disease(GERD), Hyperlipidemia, Hypertension, Kidney Stones, Myocardial Infarction *Have you ever received a pneumonia vaccine?: No *Have you received a flu vaccine this season?: No Other Medical History: Reports: Arthritis, Other (Hep C, TBI). Denies: Hypothyroidism, Thyroid Disease Anesthesia experience/problems:: None Laterality Cases: Bilateral: Tonsillectomy Other Surgeries: Yes: Colonoscopy, Other Amputation: No Fractures: Yes - *Social History Smoking Status: Never smoker # Packs/Day (cigarettes): 1 Alcohol Intake: never Alcohol Intake Frequency:: holidays/special occasions only Substance Use Type: marijuana *Occupational Status:: disabled Housing: house Household Members: family *Travel in the last 8 weeks: Inside the [facility] - Psychiatric History Pschychiatric History:: Reports:: Anxiety, Depression Family Hx:: Cancer
--- NOTE | 2020-06-21 14:28 | HMH.HP ---
*Admission Date: 06/21/20 *Chief complaint: Abdominal pain *History of present illness: This is a 55-year-old gentleman presents the emergency department with at least a few days history of abdominal pain. He states that he has just been feeling sick for at least a few days maybe a week . No definitive fevers. Some nausea. Appetite is not great . Evaluation in the emergency department revealed leukocytosis and radiographic evidence of likely perforated appendicitis. [facility] History Medical History: Reports:: Anxiety, Depression Denies:: Aneurysm, Asthma, Cancer, Congestive Heart Failure, Chronic Obstructive Pulmonary Disease (COPD), Cerebrovascular Accident, Diabetes Mellitus Type 1, Diabetes Mellitus Type 2, Gastroesophageal Reflux Disease(GERD), Hyperlipidemia, Hypertension, Kidney Stones, Myocardial Infarction, Seizures *Have you ever received a pneumonia vaccine?: No *Have you received a flu vaccine this season?: No Other Medical History: Reports: Arthritis, Other (Hep C, TBI). Denies: Hypothyroidism, Thyroid Disease Anesthesia experience/problems:: None Laterality Cases: Bilateral: Tonsillectomy Other Surgeries: Yes: Colonoscopy, Other Amputation: No Fractures: Yes - *Social History Smoking Status: Never smoker # Packs/Day (cigarettes): 1 Alcohol Intake: never Alcohol Intake Frequency:: holidays/special occasions only Substance Use Type: marijuana *Occupational Status:: disabled Housing: house Household Members: family *Travel in the last 8 weeks: Inside the [place] - Psychiatric History Pschychiatric History:: Reports:: Anxiety, Depression Family Hx:: Cancer Review of Systems - Constitutional Denies chills - Eyes Denies change in vision - ENT Denies difficulty swallowing - *Cardiovascular Denies chest pain - *Respiratory Denies cough - *Gastrointestinal Reports abdominal pain, Reports nausea - *Genitourinary Denies blood in urine - *Musculoskeletal Denies deformity - Integumentary/Breasts Denies new lesions - *Neurologic Denies confusion - Psychiatric Denies anxiety - Endocrine Denies cold intolerance - Hematologic/Lymphatic Denies easy bleeding - Allergic/Immunologic Denies GI upset with certain foods Meds Home Medications Medication Instructions Recorded Confirmed Type Citalopram Hydrobromide [Celexa] See Rx Instructions .ROUTE .COMPLEX 06/21/20 06/21/20 History Folic Acid See Rx Instructions .ROUTE .COMPLEX 06/21/20 06/21/20 History Multivit-Minerals/FA/Lycopene [One See Rx Instructions .ROUTE .COMPLEX 06/21/20 06/21/20 History Daily] Quetiapine Fumarate 100 mg PO BID 06/21/20 06/21/20 History Thiamine HCl [Vitamin B-1] See Rx Instructions .ROUTE .COMPLEX 06/21/20 06/21/20 History Allergies Allergy/AdvReac Type Severity Reaction Status Date / Time No Known Allergies Allergy Verified 06/10/20 14:25 Exam Vital signs and Labs for Last 24 Hours: Temp Pulse Resp BP Pulse Ox 98.3 F 98 H 17 132/93 H 94 L 06/21/20 11:09 06/21/20 13:30 06/21/20 11:09 06/21/20 13:30 06/21/20 13:30 Laboratory Results - last 24 hr 06/21/20 11:29: WBC 22.4 H*, RBC 5.19, Hgb 17.3, Hct 51.6, MCV 99.6 H, MCH 33.4 H, MCHC 33.5, RDW 12.7, Plt Count 195, MPV 8.9, Neut % (Auto) 85.0 H, Lymph % (Auto) 7.0 L, Dyer % (Auto) 6.9, Eos % (Auto) 0.6, Baso % (Auto) 0.5, Neut # (Auto) 19.1 H, Lymph # (Auto) 1.6, Dyer # (Auto) 1.6 H, Eos # (Auto) 0.1, Baso # (Auto) 0.1, Total Counted 100, Neutrophils % (Manual) 84 H, Lymphocytes % (Manual) 9 L, Monocytes % (Manual) 7, Platelet Estimate Normal, RBC Morphology Normal 06/21/20 11:29: Sodium 140, Potassium 3.7, Chloride 100, Carbon Dioxide 27, Anion Gap 16.7 H, BUN 26 H, Creatinine 0.90, Estimated Creat Clear 112, Estimated GFR 87, Est GFR ( Amer) 106, Glucose 155 H, Calcium 9.9, Total Bilirubin 2.6 H, AST 70 H, ALT 118 H, Alkaline Phosphatase 82, Total Protein 10.1 H, Albumin 4.9, Globulin 5.2 H, Albumin/Globulin Ratio 0.9 L,
--- NOTE | 2020-06-21 14:29 | PC.NURSE ---
Dr Leggett at bedside
[2020-06-21 14:35] LABS: Adenovirus,PCR Not Detected (NotDetected); Bordetella Pertussis Not Detected (NotDetected); Chlamydophila Pneumoniae, PCR Not Detected (NotDetected); Coronavirus 19, PCR Not Detected (NotDetected); Coronavirus 229E Not Detected (NotDetected); Coronavirus NL63 Not Detected (NotDetected); Coronavirus OC43 Not Detected (NotDetected); Coronovirus HKU1,PCR Not Detected (NotDetected); Human Metapneumovirus Not Detected (NotDetected); Influenza A, PCR Not Detected (NotDetected); Influenza AH1, 2009 Not Detected (NotDetected); Influenza AH1, PCR Not Detected (NotDetected); Influenza AH3,PCR Not Detected (NotDetected); Influenza B, PCR Not Detected (NotDetected); Mycoplasma Pneumoniae, PCR Not Detected (NotDetected); Parainfluenza 1, PCR Not Detected (NotDetected); Parainfluenza 2, PCR Not Detected (NotDetected); Parainfluenza 3, PCR Not Detected (NotDetected); Parainfluenza 4, PCR Not Detected (NotDetected); Respiratory Syncytial Virus Not Detected (NotDetected)
--- NOTE | 2020-06-21 16:19 | HMH.OPNOTE ---
Date of procedure: 06/21/20 Pre-op Diagnosis:: Perforated appendicitis Post-op Diagnosis:: Perforated appendicitis Procedure performed:: Laparoscopic appendectomy Surgeon:: Giovanni Leggett MD Anesthesia: GETXiao Estimated blood loss (mL): 25 Operative findings:: Necrotic appendicitis with mid/distal perforation Operative note:: After informed consent was obtained the patient was taken to the operating room and placed in the supine position. General anesthesia was induced and his abdomen was prepped and draped in sterile fashion. After infiltration with local anesthetic a supraumbilical incision was made. A Veress needle was placed in position. The abdomen was insufflated. A 12 mm optical trocar was placed in position. Under direct visualization an additional 5 mm trocar was placed in the suprapubic position and an additional 5 mm trocar was placed in the left lower quadrant. Severe inflammation and patchy necrosis was noted along the right lateral sidewall/mid and distal appendix. Severe inflammation and phlegmonous changes were noted throughout. The appendix was carefully elevated and a combination of traction, blunt dissection, and dissection with harmonic fawn was utilized to take down a portion of the mesoappendix. The base of the appendix appeared to be viable. A window was made in the mesoappendix at the base and an Endopath 45 stapling device was used to transect the appendix at its base. The remaining mesoappendix was taken with harmonic fawn. No active bleeding or sign of injury noted. Obvious perforation and feculent spillage was noted. The feculent spillage is very local and evacuated by way of suction. Large volume irrigation of the entire region was also accomplished. The appendix was removed through the supraumbilical trocar site after being placed in a retrieval bag. Pneumoperitoneum was released. Fascia at the supraumbilical trocar site was reapproximated with 0 Ethibond. All wounds were irrigated and skin was reapproximated with interrupted 4-0 Monocryl in a vertical mattress fashion secondary to mild sanguinous ooze. Dressings were applied and the patient was transferred recovery in stable condition after extubation. Condition: stable Disposition: PACU Specimens:: Appendix Complications:: No immediate
--- NOTE | 2020-06-21 16:28 | P.PN_ITS ---
[facility] Anesthesia Record Part I Intake, IV Amount: 900 Estimated blood loss (mL): 25 Urine output (mL): 200 Blood Pressure: 156/99 SaO2: 92 Pulse Rate: 103 Respiratory Rate: 18 Temperature: 97 F Patient is:: Drowsy Stable to PACU at:: 16:25
[2020-06-21 16:55] LABS: Rhinovirus/Enterovirus Detected (NotDetected)
--- NOTE | 2020-06-21 17:04 | PC.NURSE ---
Received report from Tahira in PACU, awaiting Covid swab and then pt will come to floor.
--- NOTE | 2020-06-21 17:12 | PC.NURSE ---
Pt arrived to the floor at this time.
[2020-06-21 17:28] LABS: Microscopic,Cath URINE MICROSCOPIC (MICROSCOPIC)
[2020-06-21 17:40] LABS: Appearance,Urine/Cath CLEAR (Clear); Bilirubin,Cath Negative (Negative); Blood, Urine/Cath Negative (Negative); Color,Urine/Cath ORANGE (Yellow); Glucose,Urine/Cath (UA) Negative (Negative); Ketones,Urine/Cath TRACE (Negative); Leukocyte Esterase,Cath Negative (Negative); Nitrate,Cath Negative (Negative); PH,Urine/Cath 6.5 (5.0-8.5); Protein,Urine/Cath 1+ (Negative); Urobilinogen,Cath 0.2 EU/dl (0.2)
[2020-06-21 17:50] LABS: Bacteria,Urine/Cath 1+ /lpf; Squamous Epithelial Ur./Cath Occasional #/hpf (0-5)
--- NOTE | 2020-06-21 19:13 | HMH.EDGENADL ---
ED Disposition Clinical Impression: Appendicitis Qualifiers: Appendicitis type: acute appendicitis Acute appendicitis type: with localized peritonitis Appendicitis perforation presence: with perforation Appendicitis abscess presence: without abscess Disposition: Admitted As Inpatient Condition on Discharge: Good - Critical Care Critical Care Time: No Attestation: On 06/21/20, the high probability of a clinically significant, sudden or life threatening deterioration of the following system(s) required my full and direct attention, intervention and personal management. The time I documented below is in addition to time spent performing reported procedures but includes the following listed in this critical care notation. Medical Decision Making - Medical Records Medical records reviewed: Yes: I reviewed the patient's medical records. - Chad Inquiry Pt receiving controlled substance: No Vital Signs: 06/21/20 11:09 06/21/20 11:30 06/21/20 12:00 Temperature 98.3 F Temperature Source Oral Pulse Rate 102 H 97 H Pulse Rate [Right] 101 H Respiratory Rate 17 Blood Pressure 145/100 H 140/100 H Blood Pressure [Right Arm] 141/91 H Blood Pressure Mean [Right Arm] 107 02 Sat by Pulse Oximetry 98 93 L 91 L 06/21/20 12:22 06/21/20 12:45 06/21/20 13:30 Temperature Temperature Source Pulse Rate 98 H 96 H 98 H Pulse Rate [Right] Respiratory Rate Blood Pressure 155/104 H 148/98 H 132/93 H Blood Pressure [Right Arm] Blood Pressure Mean [Right Arm] 02 Sat by Pulse Oximetry 93 L 95 94 L - Lab Data Lab Results 06/21/20 11:29: WBC 22.4 H*, RBC 5.19, Hgb 17.3, Hct 51.6, MCV 99.6 H, MCH 33.4 H, MCHC 33.5, RDW 12.7, Plt Count 195, MPV 8.9, Neut % (Auto) 85.0 H, Lymph % (Auto) 7.0 L, Rich % (Auto) 6.9, Eos % (Auto) 0.6, Baso % (Auto) 0.5, Neut # (Auto) 19.1 H, Lymph # (Auto) 1.6, Rich # (Auto) 1.6 H, Eos # (Auto) 0.1, Baso # (Auto) 0.1, Total Counted 100, Neutrophils % (Manual) 84 H, Lymphocytes % (Manual) 9 L, Monocytes % (Manual) 7, Platelet Estimate Normal, RBC Morphology Normal 06/21/20 11:29: Sodium 140, Potassium 3.7, Chloride 100, Carbon Dioxide 27, Anion Gap 16.7 H, BUN 26 H, Creatinine 0.90, Estimated Creat Clear 112, Estimated GFR 87, Est GFR ( Amer) 106, Glucose 155 H, Calcium 9.9, Total Bilirubin 2.6 H, AST 70 H, ALT 118 H, Alkaline Phosphatase 82, Total Protein 10.1 H, Albumin 4.9, Globulin 5.2 H, Albumin/Globulin Ratio 0.9 L, Lipase 39 06/21/20 13:54: Lactate 1.3 06/21/20 13:54: Chlamy pneumoniae PCR Not detected, Adenovirus (PCR) Not detected, B. pertussis DNA (PCR) Not detected, Coronavirus OC43 (PCR) Not detected, Coronavirus HKU1 (PCR) Not detected, Coronavirus 229E (PCR) Not detected, SARS-CoV-2 (PCR) Not detected, Coronavirus NL63 (PCR) Not detected, Human Metapneumovir PCR Not detected, Influenza A (H1) PCR Not detected, Influ A (H1N1/09) PCR Not detected, Influenza A (H3) PCR Not detected, Influenza Type A (PCR) Not detected, Influenza Type B (PCR) Not detected, M. pneumoniae (PCR) Not detected, Parainfluenza 1 (PCR) Not detected, Parainfluenza 2 (PCR) Not detected, Parainfluenza 3 (PCR) Not detected, Parainfluenza 4 (PCR) Not detected, RSV (PCR) Not detected, Entero/Rhino (PCR) Detected A Result diagrams: 06/21/20 11:29 06/21/20 11:29 Orders (Tests/Meds): ED MEDICATIONS Generic Name Dose Route Start Last Admin Trade Name Freq PRN Reason Stop Dose Admin Hydrocodone Bitart/Acetaminophen 1 - 2 tab 06/21/20 16:25 Hydrocodone/Apap 5/325 Mg Tablet PO 07/21/20 16:24 Q6HP PRN Moderate to Severe Pain Citalopram Hydrobromide 10 mg 06/22/20 09:00 Citalopram 10mg Tablet PO 07/22/20 08:59 DAILY NICOLASA Enoxaparin Sodium 40 mg 06/22/20 09:00 Enoxaparin 40mg/0.4ml Syringe SQ 07/22/20 08:59 DAILY NICOLASA Folic Acid 1 mg 06/22/20 09:00 Folic Acid 1mg Tablet PO 07/22/20 08:59 DAILY NICOLASA Metronidazole 500 mg in 100 mls @ 100 mls/h
[2020-06-22] VITALS (9 sets, daily range): BP systolic 103–115; BP diastolic 63–72; PULSE 82–100; RESP 14–24; TEMP 36.8–37.4; O2SAT 91–94; BMI 29.7
--- NOTE | 2020-06-22 02:01 | PC.NURSE ---
patient complained of pain at 2130, 1 mg morphine ivp given and slept for 3 hrs. at 0100 patient woke up moaning complaining of pain again, 1 mg morphine given and patient drank cranberry juice. patient then became nauseated and zofran given ivp. patient appears flushed temp retaken with reading of 100. tylenol given. currently patient resting with eyes closed.
--- NOTE | 2020-06-22 06:22 | PC.NURSE ---
minimal urine output this shift, dark concentrated with strong odor. has difficulty urinating
[2020-06-22 08:43] LABS: Basophils # 0.1 K/mm3 (0-0.2); Basophils % 0.5 % (0.1-2.0); Eosinophils % 0.1 % (0.1-12.0); Hematocrit 44.6 % (42.0-52.0); Lymphocytes # 1.3 K/mm3 (0.7-4.5); Lymphocytes % 10.7 % (10-50); Mean Corpuscular Hemoglobin 32.5 pg (27.0-31.2); Mean Corpuscular Volume 101.8 fl (80-94); Mean Platelet Volume 9.3 fl (7.4-10.4); Monocytes # 0.6 K/mm3 (0.1-1.0); Monocytes % 5.5 % (1.7-9.3); Neutrophils # 9.7 K/mm3 (1.8-7.8); Neutrophils % 83.2 % (37.0-80.0); Platelet Count 127 K/mm3 (142-424); Red Blood Count 4.38 M/mm3 (4.60-6.20); White Blood Count 11.7 K/mm3 (4.8-10.8)
[2020-06-22 08:49] LABS: Alanine Aminotransferase 67 U/L (12-78); Albumin Level 3.4 g/dl (3.5-5.0); Albumin/Globulin Ratio 0.9 (1.1-1.8); Alkaline Phosphatase 50 U/L (38-126); Anion Gap 7.3 mEq/L (5-15); Aspartate Amino Transferase 41 U/L (17-59); Bilirubin,Total 2.6 mg/dl (0.2-1.3); Blood Urea Nitrogen 18 mg/dl (9-20); Carbon Dioxide 27 mmol/L (22.0-30.0); Chloride 103 mmol/L (98-107); Creatinine Clearance Estimated 110 mL/min (50-200); Estimated Glomerular Filt Rate 77 ml/min (>60); GFR (African American) 94 ML/MIN (>60); Globulin 3.6 g/dL (1.3-3.2); Glucose 141 mg/dl (74-100); Potassium 3.3 mmoL/L (3.5-5.1); Sodium 134 mmol/L (136-145)
[2020-06-22 09:00] LABS: Hemoglobin 14.3 g/dL (14.1-18.0)
--- NOTE | 2020-06-22 09:33 | HMH.GSPN ---
Subjective Patient reports: no new complaints, still having pain Progress Note: A&P (1) Acute perforated appendicitis Status: Acute Assessment and plan: Overall, doing well status post laparoscopic appendectomy. Continue IV antibiotics Increase ambulation Toradol ordered (2) Abnormal CT scan, esophagus Status: Acute (3) TBI (traumatic brain injury) Status: Acute (4) Hepatitis C Status: Chronic (5) Hyperbilirubinemia Status: Acute Assessment and plan: Stable. He is scheduled to see gastroenterology/hepatology next week. (6) Cirrhosis Status: Acute Exam Vital signs and Labs for Last 24 Hours: Temp Pulse Resp BP Pulse Ox 98.2 F 91 H 20 107/67 L 91 L 06/22/20 08:00 06/22/20 08:00 06/22/20 08:25 06/22/20 08:00 06/22/20 08:00 Laboratory Results - last 24 hr 06/21/20 11:29: WBC 22.4 H*, RBC 5.19, Hgb 17.3, Hct 51.6, MCV 99.6 H, MCH 33.4 H, MCHC 33.5, RDW 12.7, Plt Count 195, MPV 8.9, Neut % (Auto) 85.0 H, Lymph % (Auto) 7.0 L, [place] % (Auto) 6.9, Eos % (Auto) 0.6, Baso % (Auto) 0.5, Neut # (Auto) 19.1 H, Lymph # (Auto) 1.6, [place] # (Auto) 1.6 H, Eos # (Auto) 0.1, Baso # (Auto) 0.1, Total Counted 100, Neutrophils % (Manual) 84 H, Lymphocytes % (Manual) 9 L, Monocytes % (Manual) 7, Platelet Estimate Normal, RBC Morphology Normal 06/21/20 11:29: Sodium 140, Potassium 3.7, Chloride 100, Carbon Dioxide 27, Anion Gap 16.7 H, BUN 26 H, Creatinine 0.90, Estimated Creat Clear 112, Estimated GFR 87, Est GFR ( Amer) 106, Glucose 155 H, Calcium 9.9, Total Bilirubin 2.6 H, AST 70 H, ALT 118 H, Alkaline Phosphatase 82, Total Protein 10.1 H, Albumin 4.9, Globulin 5.2 H, Albumin/Globulin Ratio 0.9 L, Lipase 39 06/21/20 13:54: Lactate 1.3 06/21/20 13:54: Chlamy pneumoniae PCR Not detected, Adenovirus (PCR) Not detected, B. pertussis DNA (PCR) Not detected, Coronavirus OC43 (PCR) Not detected, Coronavirus HKU1 (PCR) Not detected, Coronavirus 229E (PCR) Not detected, SARS-CoV-2 (PCR) Not detected, Coronavirus NL63 (PCR) Not detected, Human Metapneumovir PCR Not detected, Influenza A (H1) PCR Not detected, Influ A (H1N1/09) PCR Not detected, Influenza A (H3) PCR Not detected, Influenza Type A (PCR) Not detected, Influenza Type B (PCR) Not detected, M. pneumoniae (PCR) Not detected, Parainfluenza 1 (PCR) Not detected, Parainfluenza 2 (PCR) Not detected, Parainfluenza 3 (PCR) Not detected, Parainfluenza 4 (PCR) Not detected, RSV (PCR) Not detected, Entero/Rhino (PCR) Detected A 06/21/20 15:00: Urine Color [place], Urine Appearance Clear, Urine pH 6.5, Ur Specific [place] 1.020, Urine Protein 1+, Urine Glucose (UA) Negative, Urine Ketones Trace, Urine Blood Negative, Urine Nitrate Negative, Urine Bilirubin Negative, Urine Urobilinogen 0.2, Ur Leukocyte Esterase Negative, Urine WBC 3-5, Ur Squamous Epith Cells Occasional, Urine Bacteria 1+ 06/22/20 07:36: WBC 11.7 H D, RBC 4.38 L, Hgb 14.3 D, Hct 44.6, MCV 101.8 H, MCH 32.5 H, MCHC 32.0, RDW 13.0, Plt Count 127 L D, MPV 9.3, Neut % (Auto) 83.2 H, Lymph % (Auto) 10.7, [place] % (Auto) 5.5, Eos % (Auto) 0.1, Baso % (Auto) 0.5, Neut # (Auto) 9.7 H, Lymph # (Auto) 1.3, [place] # (Auto) 0.6, Eos # (Auto) 0.0, Baso # (Auto) 0.1 06/22/20 07:36: Sodium 134 L, Potassium 3.3 L, Chloride 103, Carbon Dioxide 27, Anion Gap 7.3, BUN 18 D, Creatinine 1.00, Estimated Creat Clear 110, Estimated GFR 77, Est GFR ( Amer) 94, Glucose 141 H, Total Bilirubin 2.6 H, AST 41 D, ALT 67 D, Alkaline Phosphatase 50, Total Protein 7.0 D, Albumin 3.4 L D, Globulin 3.6 H, Albumin/Globulin Ratio 0.9 L I & O for Last 24 hours: Intake & Output 06/19/20 06/20/20 06/21/20 06/22/20 11:59 11:59 11:59 11:59 Intake Total 4167 / 4167 Output Total 700 / 700 Balance 3467 / 3467 Weight 190 lb 207 lb 14.334 oz - Constitutional no acute distress - *Routine Respiratory Exam Absent: respiratory distress - *Routine Cardiovascular Exam Present: RRR - *Routine Abdominal Exam Present: sof
[2020-06-22 09:38] LABS: Calcium 7.9 mg/dl (8.4-10.2)
--- NOTE | 2020-06-22 14:31 | P.CONPHA_ITS ---
[facility] Pharmacy VTE Monitoring - Patient Demographics Admission date: 06/21/20 Report Date: 06/22/20 Time: 14:31 Allergies/Adverse Reactions: Patient Allergies No Known Allergies Allergy (Verified 06/10/20 14:25) Height: 1.78 m Weight: 94.3 kg Patient Problems: Current Active Problems Acute perforated appendicitis (Acute) Abnormal CT scan, esophagus (Acute) Appendicitis (Acute) Hyperbilirubinemia (Acute) Cirrhosis (Acute) Hepatitis C (Chronic) TBI (traumatic brain injury) (Acute) - VTE Risk Labs: VTE Related Lab Results Hgb 14.3 g/dL (14.1-18.0) D 06/22/20 07:36 Hct 44.6 % (42.0-52.0) 06/22/20 07:36 Plt Count 127 K/mm3 (142-424) L D 06/22/20 07:36 BUN 18 mg/dl (9-20) D 06/22/20 07:36 Creatinine 1.00 mg/dl (0.66-1.25) 06/22/20 07:36 Estimated Creat Clear 110 mL/min (50-200) 06/22/20 07:36 Was VTE Risk Assessment Performed: Yes VTE Score: 2 VTE Risk Level: Very Low Risk - Prophylaxis VTE Prophylaxis Ordered?: Yes Types of VTE Prophylaxis: IPCS Thigh High, Pharmacological Location of Applied Device: Bilateral Lower Extremeties Pharmacologic Type: Enoxaparin
--- NOTE | 2020-06-22 17:47 | PC.NURSE ---
Remains on room air. Hr regular. Abdomen tender, distended w/ active BS. Lap incisions intact to abdomen, remain unchanged from AM assessment. Denies passing flatus. No BM this shift. Has tolerated gradual advancement of diet today. Has ambulated in hallway twice thus far. Tolerates activity well. Family remain @ bedside. Call karen w/in reach. No needs voiced @ this time
[2020-06-23] VITALS (26 sets, daily range): BP systolic 88–144; BP diastolic 64–82; PULSE 69–191; RESP 16–22; TEMP 36.5–37.1; O2SAT 91–100; BMI 29.8; BMI 29.9
--- NOTE | 2020-06-23 04:10 | ECG_ITS ---
APPROVED REPORT Exam: Resting ECG HR:190 bpm ECG Measurements Heart Rate 190 AXES QRSd 80 QRS -9 QT 236 T 16 QTc 419 Conclusion Supraventricular tachycardia Low voltage QRS Septal infarct, age undetermined Abnormal ECG Electronically signed by : Bassem Rosas, 06/23/2020 17:44:12
--- NOTE | 2020-06-23 04:52 | HMH.RR ---
Acute Rapid Response Note - Subjective Date Responded: 06/23/20 Time Responded: 04:30 Provider Note: pt with acute tachycardia and wheezing and diaphoretic with no chest pain - had recent surg for perforated appendix - has been on lovenox and no vomiting - no reported distention - has been ambulatory- - Objective Findings: Vital Signs - Last 4 Hours Temperature 97.9 F 06/23/20 00:00 Temperature Source Oral 06/23/20 00:00 Pulse Rate 91 H 06/23/20 00:00 Respiratory Rate 16 06/23/20 00:00 Blood Pressure 99/68 L 06/23/20 00:00 Blood Pressure Mean 78 06/23/20 00:00 Blood Pressure Source Automatic Cuff 06/23/20 00:00 Blood Pressure Position Supine 06/23/20 00:00 02 Sat by Pulse Oximetry 100 06/23/20 00:00 Oxygen Delivery Method 06/23/20 02:55 Oxygen Flow Rate (LPM) 2 06/23/20 02:55 - ECG Data Tracing #1 Attestation EKG: I reviewed this ECG and interpreted as documented below: Arrhythmias present: aflutter Ischemic changes: non-specific ST-T wave changes EKG compared to prior tracings: there are no prior tracings available for comparison Rapid Response Exam - General General appearance: alert - Head Head exam: normocephalic - Eye Eye exam: Present: PERRL, EOMI - ENT ENT exam: Present: mucous membranes dry - Neck Neck exam: Present: trachea midline - Respiratory Respiratory exam: Present: wheezes. Absent: respiratory distress - Cardiovascular Cardiovascular exam: Present: tachycardia - Abdominal Exam Abdominal exam: Present: distention. Absent: guarding - Extremities Exam Extremities exam: Absent: calf tenderness - Neurological Exam Neurological exam: Present: alert, oriented X3, CN II-XII intact - Psychiatric Psychiatric exam: Present: normal affect - Skin Skin exam: Absent: rash RR Procedures/Assess/Plan - Assessment and plan all Dx Assessment and Plan for all problems:: acute onset of prob a flutter - grossly stable exam with labs and xray results pending - will give cardizem and lovenox at this time
--- NOTE | 2020-06-23 04:58 | XR_ITS ---
PROCEDURE INFORMATION: Exam: XR Chest Exam date and time: 06/23/2020 4:58 AM Age: 55 years old Clinical indication: Patient HX: Rapid response, increased hr; Additional info: Rapid red TECHNIQUE: Imaging protocol: XR of the chest. Views: 1 view. COMPARISON: CR XR CHEST 2V 05/02/2020 2:13 PM FINDINGS: Lungs: Patchy bilateral infiltrates are seen which have occurred since the prior study. COVID-19 pneumonitis could have this appearance as could other infiltrates pneumonias or areas of atelectasis. Pleural spaces: Unremarkable. No pleural effusion. No pneumothorax. Heart/Mediastinum: Unremarkable. No cardiomegaly. Diaphragm: Interval elevation of the right hemidiaphragm. Bones/joints: Unremarkable. IMPRESSION: Patchy bilateral infiltrates are seen which have occurred since the prior study. COVID-19 pneumonitis could have this appearance as could other infiltrates pneumonias or areas of atelectasis.
[2020-06-23 05:08] LABS: Basophils % 0.4 % (0.1-2.0); Eosinophils # 0.1 K/mm3 (0.0-0.4); Eosinophils % 1.2 % (0.1-12.0); Hematocrit 42.5 % (42.0-52.0); Hemoglobin 13.3 g/dL (14.1-18.0); Lymphocytes # 1.7 K/mm3 (0.7-4.5); Lymphocytes % 17.3 % (10-50); Mean Corpuscular HGB Conc 31.3 g/dL (31.8-35.4); Mean Corpuscular Hemoglobin 32.3 pg (27.0-31.2); Mean Corpuscular Volume 103.4 fl (80-94); Mean Platelet Volume 9.3 fl (7.4-10.4); Monocytes # 0.6 K/mm3 (0.1-1.0); Monocytes % 5.9 % (1.7-9.3); Neutrophils # 7.4 K/mm3 (1.8-7.8); Neutrophils % 75.3 % (37.0-80.0); Platelet Count 118 K/mm3 (142-424); Red Blood Count 4.11 M/mm3 (4.60-6.20); Red Cell Distribution Width 12.7 % (11.5-17.5); White Blood Count 9.8 K/mm3 (4.8-10.8)
--- NOTE | 2020-06-23 05:10 | ECG_ITS ---
APPROVED REPORT Exam: Resting ECG HR:109 bpm ECG Measurements Heart Rate 109 AXES OR 172 P 40 QRSd 84 QRS -8 QT 336 T 34 QTc 452 Conclusion Sinus tachycardia with occasional premature ventricular complexes Low voltage QRS Septal infarct, age undetermined Abnormal ECG Electronically signed by : Bassem Rosas, 06/23/2020 17:44:08
[2020-06-23 05:13] LABS: Anion Gap 10.3 mEq/L (5-15); Blood Urea Nitrogen 17 mg/dl (9-20); Calcium 7.7 mg/dl (8.4-10.2); Carbon Dioxide 26 mmol/L (22.0-30.0); Chloride 102 mmol/L (98-107); Creatinine Clearance Estimated 110 mL/min (50-200); Estimated Glomerular Filt Rate 77 ml/min (>60); GFR (African American) 94 ML/MIN (>60); Glucose 108 mg/dl (74-100); Potassium 3.3 mmoL/L (3.5-5.1); Sodium 135 mmol/L (136-145)
[2020-06-23 05:24] LABS: Troponin I 0.02 ng/ml (0.00-0.034)
--- NOTE | 2020-06-23 06:13 | CT_ITS ---
PROCEDURE INFORMATION: Exam: CTA Chest With Contrast Exam date and time: 06/23/2020 6:13 AM Age: 55 years old Clinical indication: Other: Hypoxia, tachycardia; Patient HX: S/P appendix surg, x 2 days; Additional info: Hypoxia and tacycardia with positive wells score 6 TECHNIQUE: Imaging protocol: Computed tomographic angiography of the chest with contrast. 3D rendering (Not supervised by radiologist): MIP and/or 3D reconstructed images were created by the technologist. Radiation optimization: All CT scans at this facility use at least one of these dose optimization techniques: automated exposure control; mA and/or kV adjustment per patient size (includes targeted exams where dose is matched to clinical indication); or iterative reconstruction. Contrast material: ISOVUE; Contrast volume: 70 ml; Contrast route: INTRAVENOUS (IV); COMPARISON: CR XR CHEST PORTABLE 06/23/2020 4:44 AM FINDINGS: Pulmonary arteries: No dissection. No obvious embolus however the exam is severely limited regarding the diagnosis or exclusion of embolus. Consider alternative form of imaging. No embolus within the right and left main pulmonary arteries. Aorta: Unremarkable. No aortic aneurysm. No aortic dissection. Lungs: Patchy ground-glass airspace disease within the right upper lobe. Nonspecific.Covid within the differential diagnosis. Pleural spaces: Small pleural effusions right slightly greater than left. Mild adjacent basilar airspace disease/atelectasis right greater than left. Heart: No pericardial effusion Mediastinal space: Soft tissues of the mediastinum appear unremarkable. Small hiatal hernia. Lymph nodes: Calcified lymph node right infrahilar region and right lower lobe. Liver: Nodular cirrhotic appearing liver. Nonspecific lymph nodes in the gastrohepatic ligament, juxta celiac region and migdalia hepatis largest of approximately 2 cm. Bones/joints: Unremarkable. No acute fracture. Soft tissues: Unremarkable. Other findings: thoracic inlet is unremarkable. IMPRESSION: 1. No dissection. No obvious embolus however the exam is severely limited regarding the diagnosis or exclusion of embolus. Consider alternative form of imaging. No embolus within the right and left main pulmonary arteries. 2. Small pleural effusions right slightly greater than left. Mild adjacent basilar airspace disease/atelectasis right greater than left. 3. Patchy ground-glass airspace disease within the right upper lobe. Nonspecific.Covid within the differential diagnosis. 4. Nodular cirrhotic appearing liver. Nonspecific lymph nodes in the gastrohepatic ligament, juxta celiac region and migdalia hepatis largest of approximately 2 cm.
--- NOTE | 2020-06-23 06:35 | HMH.GSPN ---
Subjective Narrative: Rapid response called overnight secondary to significant tachycardia. Patient was evaluated by Dr. Clayton and diagnosed with likely atrial flutter. No obvious abnormalities noted on initial laboratory evaluation. Cardiac echo has been ordered. Chest CT (PE protocol) has also been ordered. The patient states that he feels fine overall . Progress Note: A&P (1) Acute perforated appendicitis Status: Acute Assessment and plan: Overall, doing well status post laparoscopic appendectomy. White blood cell count has normalized. Continue antibiotics (likely discharge home soon on PO antibiotics) (2) Abnormal CT scan, esophagus Status: Acute (3) TBI (traumatic brain injury) Status: Acute (4) Hepatitis C Status: Chronic (5) Hyperbilirubinemia Status: Acute (6) Cirrhosis Status: Acute (7) Atrial flutter Status: Acute Assessment and plan: Ongoing management as per primary service (Dr. Clayton) Cardiac echo ordered CT PE protocol ordered Exam Vital signs and Labs for Last 24 Hours: Temp Pulse Resp BP Pulse Ox 97.7 F 189 H 20 102/64 L 91 L 06/23/20 04:00 06/23/20 04:00 06/23/20 04:00 06/23/20 04:00 06/23/20 04:00 Laboratory Results - last 24 hr 06/22/20 07:36: WBC 11.7 H D, RBC 4.38 L, Hgb 14.3 D, Hct 44.6, MCV 101.8 H, MCH 32.5 H, MCHC 32.0, RDW 13.0, Plt Count 127 L D, MPV 9.3, Neut % (Auto) 83.2 H, Lymph % (Auto) 10.7, [place] % (Auto) 5.5, Eos % (Auto) 0.1, Baso % (Auto) 0.5, Neut # (Auto) 9.7 H, Lymph # (Auto) 1.3, [place] # (Auto) 0.6, Eos # (Auto) 0.0, Baso # (Auto) 0.1 06/22/20 07:36: Sodium 134 L, Potassium 3.3 L, Chloride 103, Carbon Dioxide 27, Anion Gap 7.3, BUN 18 D, Creatinine 1.00, Estimated Creat Clear 110, Estimated GFR 77, Est GFR ( Amer) 94, Glucose 141 H, Calcium 7.9 L D, Total Bilirubin 2.6 H, AST 41 D, ALT 67 D, Alkaline Phosphatase 50, Total Protein 7.0 D, Albumin 3.4 L D, Globulin 3.6 H, Albumin/Globulin Ratio 0.9 L 06/23/20 04:45: WBC 9.8, RBC 4.11 L, Hgb 13.3 L, Hct 42.5, MCV 103.4 H, MCH 32.3 H, MCHC 31.3 L, RDW 12.7, Plt Count 118 L, MPV 9.3, Neut % (Auto) 75.3, Lymph % (Auto) 17.3, [place] % (Auto) 5.9, Eos % (Auto) 1.2, Baso % (Auto) 0.4, Neut # (Auto) 7.4, Lymph # (Auto) 1.7, [place] # (Auto) 0.6, Eos # (Auto) 0.1, Baso # (Auto) 0.0 06/23/20 04:45: Sodium 135 L, Potassium 3.3 L, Chloride 102, Carbon Dioxide 26, Anion Gap 10.3, BUN 17, Creatinine 1.00, Estimated Creat Clear 110, Estimated GFR 77, Est GFR ( Amer) 94, Glucose 108 H D, Calcium 7.7 L, Troponin I 0.02 I & O for Last 24 hours: Intake & Output 06/20/20 06/21/20 06/22/20 06/23/20 11:59 11:59 11:59 11:59 Intake Total 4167 / 4167 1614 / 1614 Output Total 700 / 700 700 / 700 Balance 3467 / 3467 914 / 914 Weight 190 lb 207 lb 14.334 oz 208 lb 8 oz - Constitutional no acute distress - *Routine Respiratory Exam Absent: respiratory distress - *Routine Cardiovascular Exam Present: tachycardia Comments: Current heart rate 104 - *Routine Abdominal Exam Present: soft
--- NOTE | 2020-06-23 07:00 | CA_ITS ---
APPROVED REPORT EXAM: Comprehensive 2D, Doppler, and color-flow Echocardiogram Plate And Weld Inspector: Cristal Cheema CRT Ht: 5 ft 10 in Wt: 208lbs BSA: 2.12 BP: 111/79 mmHg Indications: Atrial Flutter, 06/21/20 emergent appendectomy, tachycardia. 2D Dimensions LVOT 2.00 cm (M/F) 1.5-2.5 LA Volume 48.80 mL LA Volume Index 23.00 mL/m2 (M/F) 16-34 M-Mode Dimensions RVDd 4.22 cm (0.9-2.6) LA Diam 4.53 cm (1.9-4.0) LVDd 3.97 cm (3.5-5.7) Ao Diam 3.68 cm (2.0-3.7) LVDs 2.61 cm (3.5-5.7) IVSd 1.43 cm (0.6-1.1) PWd 1.11 cm (0.6-1.1) EF (Teich) 64.00% FS 34.30% EDV (Teich) 68.80 mL ESV (Teich) 24.80 mL LV Diastology E Decel Time 150.00 (160-240 msec) E/A Ratio 1.70 Aortic Valve AO Peak GR. 7.90 mmHg Mitral Valve MV E Max Rolf. 89.00 (40-130 cm/s) MV A Velocity 52.00 (40-130 cm/s) E/A Ratio 1.70 MV Decel. Time 150.00 (160-240 ms) MV PHT 44.00 ms Pulmonary Valve PV Peak Velocity 63.00 (50-150 cm/s) Tricuspid Valve TR P. Velocity 220.00 cm/s RAP Estimate 10.00 mmHg RVSP 29.40 mmHg Left Ventricle Left atrium is mildly enlarged, left ventricle is normal size, left ventricle wall thickness upper limit of normal, visually estimated ejection fraction 55% with no regional wall motion abnormality, diastolic parameters are inconclusive. Endocardial surfaces are poorly visualized. Right Ventricle Right atrium and right ventricle are mildly enlarged with normal contractility. Aortic Valve Aortic valve is minimally thickened and fibrosed, there is no aortic stenosis or aortic insufficiency. Mitral Valve Mitral valve grossly normal, there is mild mitral regurgitation. Tricuspid Valve Tricuspid grossly normal, there is trace tricuspid regurgitation, tricuspid regurgitation jet velocity is inadequate for calculation of the right ventricular systolic pressure. Pulmonic Valve Pulmonic valve is poorly visualized. Great Vessels Aortic root is normal size. Pericardium No significant pericardial effusion noted. Conclusion 1. Mild biatrial alignment, normal left ventricular size, visually estimated ejection fraction 55% with no regional wall motion abnormality, endocardial surfaces are poorly visualized. 2. Mildly enlarged right ventricle with normal contractility. 3. Mild mitral and trace tricuspid regurgitation. 4. No significant pericardial effusion noted. Electronically signed by : Marcus Gonzalez, 06/23/2020 20:01:02
--- NOTE | 2020-06-23 07:32 | CA_ITS ---
APPROVED REPORT Bilateral Lower Extremity Venous Study for DVT. Prepress Stripper: Geni Kenney RVT Indications Lower Extremity Edema: Bilateral swelling - post op APPENDECTOMY Risk Factors Post OP Vein Imaging CFV (R): compressive, spontaneous, phasic, augmentation FEM (R): compressive, spontaneous, phasic, augmentation POP (R): compressive, spontaneous, phasic, augmentation PTV (R): Compressible GSV (R): Compressible Peroneals (R):Compressible GAS (R): Compressible CFV (L): compressive, spontaneous, phasic, augmentation FEM (L): compressive, spontaneous, phasic, augmentation POP (L): compressive, spontaneous, phasic, augmentation PTV (L): Partially Compressible GSV (L): Compressible Peroneals (L):Compressible GAS (L): Compressible Findings Study suggests no evidence of DVT or SVT of the right lower extremity. Study suggests dilated left posterior tibial vein with an area on non-compression. Probable DVT left posterior tibial vein. Other veins of the left lower extremity are negative for DVT and SVT. Conclusion Study suggests no evidence of DVT or SVT of the right lower extremity. Study suggests dilated left posterior tibial vein with an area on non-compression. Probable DVT left posterior tibial vein. Other veins of the left lower extremity are negative for DVT and SVT. Critical Notification Critical Value: Yes Physician Notified Date: 06/23/2020 Time: 9:30 Physician Name: Dr Clayton Electronically signed by : Watson Burk MD 06/23/2020 17:43:57
--- NOTE | 2020-06-23 07:49 | PC.NURSE ---
shift summary: nurse tech reported heart rate of 188 with 0400 vs. this rn assessed patient to find hr in the 180s, other vs stable, patient not complaining of chest pain, nausea or soa. does feel slightly clammy. conveyor monitor placed to assess to evaluate rate and rhythm. stat ekg ordered, ekg shows svt with rate of 190., ekg taken to er for dr. stout to evaluate, ekg determined to be a flutter. dr. byers notified at 0430, order received to consult pcp. continuing education director physician paged, return call received. after informing continuing education director physican of hr, order received to call rapid response red . dr stout at bedside assessment completed, full report given of vs, and patient status. new orders received and carried out. 0456 cardizem 23.5 mg bolus started and completed at 0500. patient converted into st at 103. blood pressures have maintained systolics greater than [address] throughout entire episode[address] 0615 dr. byers at bedside for am rounding, assessment complete, status update given. 0620 dr. stout in room assessment completed , status update given. [address] per bed, awake overnight monitor and portable oxygen. rn accompanied patient. ct scan performed without any incident.
--- NOTE | 2020-06-23 08:30 | PC.NURSE ---
Per dr Clayton, ok for pt to transfer out of stepdown
[2020-06-23 08:32] LABS: Troponin I 0.24 ng/ml (0.00-0.034)
[2020-06-23 13:48] LABS: Troponin I 0.27 ng/ml (0.00-0.034)
--- NOTE | 2020-06-23 14:03 | PC.NURSE ---
notified Dr Clayton of troponin of 0.27. new order of troponin at 1800 this evening. orders entered.
--- NOTE | 2020-06-23 14:34 | HMH.CONS ---
*Admission Date: 06/21/20 *Reason for consult:: cardiac issues *History of present illness: this patient was admitted to the hospital with abd pain and found to have [id number] male presenting for right lower quadrant abdominal pain, ongoing for the past 2 days, patient has had elevated temperature, nausea, worsening pain today. Patient per the mom at bedside he states the patient has a brain injury, patient took some Pepto-Bismol yesterday without any relief, patient has had nausea without any vomiting or diarrhea. Patient has no abdominal surgery history. examination 55-year-old male presenting for abdominal pain, right lower quadrant, nonradiating, ongoing for the last 2 days, progressively worsening, patient has nausea, differential is broad, patient had basic blood work ordered as well as CT scan abdomen pelvis IV contrast, blood work significant for leukocytosis, concerning for infection, patient CT scan demonstrated perforated appendicitis, patient was started on Zosyn, patient given 1 L fluid bolus, surgery was consulted who agreed to take the patient to the OR, patient family updated on plan. pt was taken to surg -ate of procedure: 06/21/20 Pre-op Diagnosis:: Perforated appendicitis Post-op Diagnosis:: Perforated appendicitis Procedure performed:: Laparoscopic appendectomy Surgeon:: Giovanni Leggett MD Anesthesia: GETA Estimated blood loss (mL): 25 Operative findings:: Necrotic appendicitis with mid/distal perforation Operative note:: After informed consent was obtained the patient was taken to the operating room and placed in the supine position. General anesthesia was induced and his abdomen was prepped and draped in sterile fashion. After infiltration with local anesthetic a supraumbilical incision was made. A Veress needle was placed in position. The abdomen was insufflated. A 12 mm optical trocar was placed in position. Under direct visualization an additional 5 mm trocar was placed in the suprapubic position and an additional 5 mm trocar was placed in the left lower quadrant. Severe inflammation and patchy necrosis was noted along the right lateral sidewall/mid and distal appendix. Severe inflammation and phlegmonous changes were noted throughout. The appendix was carefully elevated and a combination of traction, blunt dissection, and dissection with harmonic fawn was utilized to take down a portion of the mesoappendix. The base of the appendix appeared to be viable. A window was made in the mesoappendix at the base and an Endopath 45 stapling device was used to transect the appendix at its base. The remaining mesoappendix was taken with harmonic fawn. No active bleeding or sign of injury noted. Obvious perforation and feculent spillage was noted. The feculent spillage is very local and evacuated by way of suction. Large volume irrigation of the entire region was also accomplished. The appendix was removed through the supraumbilical trocar site after being placed in a retrieval bag. Pneumoperitoneum was released. Fascia at the supraumbilical trocar site was reapproximated with 0 Ethibond. All wounds were irrigated and skin was reapproximated with interrupted 4-0 Monocryl in a vertical mattress fashion secondary to mild sanguinous ooze. Dressings were applied and the patient was transferred recovery in stable condition after extubation. Condition: stable Disposition: PACU pt was doing ok but had episode of svt which appeared to be atrial flutter - rapid response was called -t with acute tachycardia and wheezing and diaphoretic with no chest pain - had recent surg for perforated appendix - has been on lovenox and no vomiting - no reported distention - has been ambulatory- pt responded to bolus of cardizam and converted to sinus rhythm - no pul emboli was noted on ct for pul emboli but did have prob positive lt lower leg for dvt and echo was ok - however elevated troponin after episode which trended down
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
--- NOTE | 2020-06-23 17:15 | ECG_ITS ---
APPROVED REPORT Exam: Resting ECG HR:162 bpm ECG Measurements Heart Rate 162 AXES QRSd 84 QRS -76 QT 296 T -21 QTc 485 Conclusion Supraventricular tachycardia Pulmonary disease pattern Left anterior fascicular block Septal infarct, age undetermined Abnormal ECG Electronically signed by : Bassem Rosas, 06/24/2020 17:10:10
--- NOTE | 2020-06-23 17:48 | PC.NURSE ---
Pt monitor began alarming at 1705. it was noted that the pt hr was 163. Valsalva maneuver and having pt blow through straw were attempted but were unsuccessful. stat ekg was and performed. results were SVT with rate of 164. Dr Joshi was paged at 1715 and notified of pt rhythm change, and pt history of SVT and RRR this am. Dr Joshi gave order for pt to have Cardizem 10mg ivp x1 now and to start the metoprolol succ 25m,g po now (scheduled to start in the am). med pushed at 1730, pt noted to convert to nsr rhythm at 1733. Dr Smith was notified of pt changes and shown the EKG. no new orders from dr Smith at this time.
[2020-06-23 19:01] LABS: Troponin I 0.18 ng/ml (0.00-0.034)
[2020-06-24] VITALS (10 sets, daily range): BP systolic 106–134; BP diastolic 66–98; PULSE 73–105; RESP 15–20; TEMP 36.7–37.2; O2SAT 90–96; BMI 31.5
--- NOTE | 2020-06-24 01:36 | PC.NURSE ---
patient has had large, loose incontinent bowel movement.
[2020-06-24 06:32] LABS: Basophils % 0.4 % (0.1-2.0); Eosinophils # 0.2 K/mm3 (0.0-0.4); Eosinophils % 2.3 % (0.1-12.0); Hematocrit 37.1 % (42.0-52.0); Hemoglobin 12.7 g/dL (14.1-18.0); Lymphocytes # 1.4 K/mm3 (0.7-4.5); Lymphocytes % 16.2 % (10-50); Mean Corpuscular HGB Conc 34.3 g/dL (31.8-35.4); Mean Corpuscular Hemoglobin 33.5 pg (27.0-31.2); Mean Corpuscular Volume 97.8 fl (80-94); Mean Platelet Volume 9.2 fl (7.4-10.4); Monocytes # 0.5 K/mm3 (0.1-1.0); Monocytes % 5.9 % (1.7-9.3); Neutrophils # 6.6 K/mm3 (1.8-7.8); Neutrophils % 75.2 % (37.0-80.0); Platelet Count 137 K/mm3 (142-424); Red Blood Count 3.79 M/mm3 (4.60-6.20); Red Cell Distribution Width 13.1 % (11.5-17.5); White Blood Count 8.8 K/mm3 (4.8-10.8)
--- NOTE | 2020-06-24 06:32 | PC.NURSE ---
patient has had uneventful night. pain has decreased from previous two nights, bowel sounds hyper active, bm x 2 noted. denies nausea. abd does appear more distended but slightly softer. patient has frequent episodes of hiccups. fastener technologist has maintained sr with rate 70s to 95. o2 placed on at night due to short period of sleep apnea.
[2020-06-24 06:42] LABS: Blood Urea Nitrogen 10 mg/dl (9-20); Calcium 7.6 mg/dl (8.4-10.2); Carbon Dioxide 31 mmol/L (22.0-30.0); Chloride 102 mmol/L (98-107); Creatinine Clearance Estimated 129 mL/min (50-200); Estimated Glomerular Filt Rate 87 ml/min (>60); GFR (African American) 106 ML/MIN (>60); Glucose 124 mg/dl (74-100); Sodium 135 mmol/L (136-145)
[2020-06-24 06:54] LABS: Troponin I 0.13 ng/ml (0.00-0.034)
--- NOTE | 2020-06-24 07:20 | P.PN_ITS ---
Subjective Narrative: No significant complaints. Has had a couple bowel movements. Progress Note: A&P (1) Acute perforated appendicitis Status: Acute (2) Abnormal CT scan, esophagus Status: Acute (3) TBI (traumatic brain injury) Status: Acute (4) Hepatitis C Status: Chronic (5) Hyperbilirubinemia Status: Acute (6) Cirrhosis Status: Acute (7) Atrial flutter Status: Acute (8) Obesity (BMI 30.0-34.9) Status: Acute (9) DVT (deep venous thrombosis) Status: Acute Assessment and Plan for All Diagnoses:: Patient is postoperative day #3. Clinically concerning for possible ileus. Reevaluate later today. Exam Vital signs and Labs for Last 24 Hours: Temp Pulse Resp BP Pulse Ox 98.6 F 73 20 127/80 92 L 06/24/20 04:00 06/24/20 04:00 06/24/20 04:00 06/24/20 04:00 06/24/20 04:00 Laboratory Results - last 24 hr 06/23/20 08:02: Troponin I 0.24 H 06/23/20 13:20: Troponin I 0.27 H 06/23/20 18:25: Troponin I 0.18 H 06/24/20 05:49: WBC 8.8, RBC 3.79 L, Hgb 12.7 L, Hct 37.1 L, MCV 97.8 H, MCH 33.5 H, MCHC 34.3, RDW 13.1, Plt Count 137 L, MPV 9.2, Neut % (Auto) 75.2, Lymph % (Auto) 16.2, [place] % (Auto) 5.9, Eos % (Auto) 2.3, Baso % (Auto) 0.4, Neut # (Auto) 6.6, Lymph # (Auto) 1.4, [place] # (Auto) 0.5, Eos # (Auto) 0.2, Baso # (Auto) 0.0 06/24/20 05:49: Sodium 135 L, Potassium 3.0 L, Chloride 102, Carbon Dioxide 31 H , Anion Gap 5.0, BUN 10 D, Creatinine 0.90, Estimated Creat Clear 129, Estimated GFR 87, Est GFR ( Amer) 106, Glucose 124 H, Calcium 7.6 L, Troponin I 0.13 H I & O for Last 24 hours: Intake & Output 06/21/20 06/22/20 06/23/20 06/24/20 11:59 11:59 11:59 11:59 Intake Total 4167 / 4167 3324 / 3324 2395 / 2395 Output Total 700 / 700 1350 / 1350 277 / 277 Balance 3467 / 3467 1973 / 19738 / 2118 Weight 190 lb 207 lb 14.334 oz 208 lb 8 oz 220 lb 2 oz Microbiology Reports for the Last 24 Hours: Microbiology 06/21/20 13:54 Blood Blood Culture - Preliminary NO GROWTH AFTER 48 HOURS 06/21/20 13:54 Blood Blood Culture - Preliminary NO GROWTH AFTER 48 HOURS - *Routine Abdominal Exam Comments: Abdomen distended. Some bruising at trocar sites.
--- NOTE | 2020-06-24 07:34 | P.PN_ITS ---
[facility] Anesthesia Record Part II Discharge Time: 17:05 Destination: Medical Surgical Department PACU nurse assessment reviewed?: Yes Patient Condition:: Good Anesthesia Complications:: None Swallowing reflex intact?: Yes Cyanosis?: No Blood Pressure: 134/98 Pulse Rate: 105 Temperature: 98.9 F Mental Status: Alert & Oriented Pain level:: 0 Nausea and/or vomitting:: None Intake, IV Amount: 0
--- NOTE | 2020-06-24 08:11 | HMH.CONFU ---
Internal Medicine - PN: Subj *Date: 06/24/20 *Time: 18:39 Interval history: 55-year-old male patient lying in bed resting quietly with eyes open, he denies any chest pain or respiratory distress during the night. Reports he is feeling better today, he states that he has been eating without any difficulty. His father is in recliner next to bed and he reminds patient he was not able to tolerate solid food he reports he was unable to finish solid food last night and this morning. But father does states he has tolerated fluids without difficulty. Patient states that he is that he has passed gas and has had a bowel movement. Exam Vital signs and Labs for Last 24 Hours: Temp Pulse Resp BP Pulse Ox 98.3 F 80 17 106/66 L 90 L 06/24/20 07:38 06/24/20 07:38 06/24/20 07:38 06/24/20 07:38 06/24/20 07:38 Laboratory Results - last 24 hr 06/23/20 08:02: Troponin I 0.24 H 06/23/20 13:20: Troponin I 0.27 H 06/23/20 18:25: Troponin I 0.18 H 06/24/20 05:49: WBC 8.8, RBC 3.79 L, Hgb 12.7 L, Hct 37.1 L, MCV 97.8 H, MCH 33.5 H, MCHC 34.3, RDW 13.1, Plt Count 137 L, MPV 9.2, Neut % (Auto) 75.2, Lymph % (Auto) 16.2, [place] % (Auto) 5.9, Eos % (Auto) 2.3, Baso % (Auto) 0.4, Neut # (Auto) 6.6, Lymph # (Auto) 1.4, [place] # (Auto) 0.5, Eos # (Auto) 0.2, Baso # (Auto) 0.0 06/24/20 05:49: Sodium 135 L, Potassium 3.0 L, Chloride 102, Carbon Dioxide 31 H, Anion Gap 5.0, BUN 10 D, Creatinine 0.90, Estimated Creat Clear 129, Estimated GFR 87, Est GFR ( Amer) 106, Glucose 124 H, Calcium 7.6 L, Troponin I 0.13 H I & O for Last 24 hours: Intake & Output 06/21/20 06/22/20 06/23/20 06/24/20 23:59 23:59 23:59 23:59 Intake Total 1500 / 1500 4281 / 4281 3155 / 4105 1310 / 1310 Output Total 300 / 300 1100 / 1100 925 / 927 2 / 2 Balance 1200 / 1200 3181 / 3181 2230 / 3178 1308 / 1308 Weight 206 lb 2 oz 207 lb 14.334 oz 209 lb 7.026 oz 220 lb 2 oz Microbiology Reports for the Last 24 Hours: Microbiology 06/21/20 13:54 Blood Blood Culture - Preliminary NO GROWTH AFTER 48 HOURS 06/21/20 13:54 Blood Blood Culture - Preliminary NO GROWTH AFTER 48 HOURS - Constitutional no acute distress - *Routine HEENT Exam Head: Present: normocephalic Eye: Present: EOMI ENT: Present: mucous membranes moist - *Routine Neck Exam Present: trachea midline. Absent: tracheal deviation - *Routine Respiratory Exam Present: CTA bilaterally. Absent: accessory muscle use - *Routine Cardiovascular Exam Present: RRR, murmur - *Routine Abdominal Exam Present: soft, tenderness, distended, wound - *Routine Extremities Exam Present: full ROM, pulses intact. Absent: cyanosis, clubbing, edema, calf tenderness - *Routine Skin Exam Present: cyanosis, dry, warm, wounds. Absent: erythema - *Routine Neurological Exam Present: alert, altered mental status. Absent: motor deficit - Routine Psychiatric Exam Present: unable to assess Assessment and Plan (1) Acute perforated appendicitis Status: Acute Category: Medical Code(s): K35.32 - Acute appendicitis with perforation and localized peritonitis, without abscess (2) Abnormal CT scan, esophagus Status: Acute Category: Medical Code(s): R93.3 - Abnormal findings on diagnostic imaging of other parts of digestive tract (3) TBI (traumatic brain injury) Status: Acute Category: Medical Code(s): S06.9X9A - Unspecified intracranial injury with loss of consciousness of unspecified duration, initial encounter (4) Hepatitis C Status: Chronic Category: Medical Code(s): B19.20 - Unspecified viral hepatitis C without hepatic coma (5) Hyperbilirubinemia Status: Acute Category: Medical Code(s): E80.6 - Other disorders of bilirubin metabolism (6) Cirrhosis Status: Acute Category: Medical Code(s): K74.60 - Unspecified cirrhosis of liver (7) Atrial flutter Status: Acute Category: Medical Code(s): I48.92 -
--- NOTE | 2020-06-24 08:29 | ECG_ITS ---
APPROVED REPORT Exam: Resting ECG HR:75 bpm ECG Measurements Heart Rate 75 AXES [place] 184 P 56 QRSd 88 QRS -10 QT 396 T 48 QTc 442 Conclusion Normal sinus rhythm Septal infarct, age undetermined Abnormal ECG Electronically signed by : Bassem Rosas, 06/24/2020 17:09:00
--- NOTE | 2020-06-24 09:58 | SW/DCPLANNER ---
ORDERED A ROLLING WALKER FOR THIS PATIENT WHO IS DISCHARGING HOME TODAY PATIENT NOT STEADY ON HER FEET R/T CVA... FAMILY AT BEDSIDE AND THEY ARE GOING TO BRING HER BACK TO THE OUT PATIENT DEPT FOR PT/OT SERVICES....WALKER WILL BE DELIVERED PRIOR TO DISCHARGE...
--- NOTE | 2020-06-24 10:21 | HMH.OTEV ---
OT Inpatient Evaluation Rehab OT IP Evaluation Start: 06/24/20 09:00 Freq: ONCE Status: Complete Protocol: Document 06/24/20 10:14 VALINCOLN (Rec: 06/24/20 10:21 [facility] [id number]) Rehab OT IP Assessment Subjective History Pt oriented x 2 on arrival. Pt agreeable to engage in therapy evaluation. Pt was admitted via ED on 06/21/20 due to acute appendicitis. Pt has a past medical history of TBI, Anxiety, and depression. Pt's father was present. He still lives with both parents. Pt and father report pt is able to complete all ADL's independently. However, he does rely on his parents to complete all IADL's. Pt does not use ambulation device. Subjective I got sick. Objective Patient Orientation Person,Birthday Upper Extremity Gross ROM WFL Transfer Training Sit/Stand Transfer Assist Level Contact Guard/Hand Hold Chair Transfer Ability Contact Guard/Hand Hold Chair Transfer Technique Sit to/from Ambulatory Chair Transfer Assistive Devices None Lower Body Dressing Ability Standby Assistance Rehab OT IP prob,goals,plan Problems Date of Evaluation: 06/24/20 Rehab Potential Rehab Potential Innapropriate for Skilled Therapy Discharge Plan OT Discharge Plan At this time, pt appears to be at baselines with ADL's and transfers. Pt can return home with family once medically stable per physicians orders. Eval Complexity Eval Charge Codes 99545 - Moderate Complexity G Codes G -code Required No PHYSICIAN CERTIFICATION: I certify the specified therapy services for Mohit Brunson are required, authorized, and reviewed every 30 days.
--- NOTE | 2020-06-24 10:26 | PC.NURSE ---
pt ambulated in hallway with 2 person assist. He ambulated from his room to the rewards consultant and back to his room.
--- NOTE | 2020-06-24 11:52 | HMH.PTEV ---
Physical Therapy Evaluation Rehab PT IP Evaluation Start: 06/24/20 09:00 Freq: ONCE Status: Active Protocol: Document 06/24/20 11:48 DARRYL (Rec: 06/24/20 11:51 [email or web address] [id number]) Subjective/History History History This is the initial IP PT evaluation for Mohit Brunson. Pt is a 55 y/o male admitted to [facility] s/p surery to remove appendix. Pt had c/o abdominal pain for a few days that increased. Pt came to ER and was found to have appendicitis. Pt underwent removal. Subjective Subjective Pt c/o pain in abdomen Rehab PT IP Eval Objective Appearance Patient Behavior Appropriate,Cooperative Patient Orientation Person,Place Difficulty following instructions mild Speech Pattern Appropriate Ambulation Patient Able to Ambulate Yes Ambulation Observation IP General Gait Pattern Observation Wide Based Gait Ambulation Distance (feet) 25 Ambulation Assistive Device None Ambulation Ability Contact Guard/Hand Hold Balance Ability to Arise Able, uses arms to help Sitting Balance Steady, safe Standing Balance Steady, wide stance Dynamic Sitting Balance Ability Good Dynamic Standing Balance Ability Fair Transfers Sit to Stand Bed Transfer Ability Contact Guard/Hand Hold Sit to Stand Chair Transfer Ability Contact Guard/Hand Hold ROM All Extremities PT ROM Status WFL MMT All Extremities PT MMT WFL Rehab PT IP prob,goals,plan Problems Date of Evaluation: 06/24/20 PT IP Problems Gait,Balance,Self care Rehab Potential Rehab Potential Good Equipment Needs Assistive Devices None / NA Plan PT Intervention Plan Transfers,Gait,Safety, Therapeutic Exercise PT Plan Frequency BID Duration LOS Discharge Goals Bed Transfer Ability Supervision/Stand by Sit to Stand Chair Transfer Ability Supervision/Stand by Ambulation Assistive Device None Ambulation Distance (feet) 50 Discharge Plan PT Discharge Plan Pt to return home w/ parents and supervision once medically stable G -code Required Yes Eval Complexity Eval Charge Codes 68457 - Low Complexity G Codes PT Current Status Mobility PT Current Status Modifier CI-At least 1% but less than
[2020-06-25] VITALS (7 sets, daily range): BP systolic 104–141; BP diastolic 64–84; PULSE 62–90; RESP 16–22; TEMP 36.4–36.9; O2SAT 91–96; BMI 31.5
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
--- NOTE | 2020-06-25 07:20 | XR_ITS ---
PROCEDURE: XR ACUTE ABDOMEN SERIES CLINICAL INDICATION: ileus COMPARISON: CT CT ABDOMEN PELVIS W CON from 06/21/2020 FINDINGS: Frontal view of the chest shows low lung volumes with mild atelectatic change in the right lower lobe. There is mild cardiomegaly without failure. Upright and supine views of the abdomen demonstrates a nonspecific bowel gas pattern. No evidence of intestinal obstruction or obvious pneumoperitoneum. No acute bony anomalies are evident. Faint increased density is present in the right lower quadrant and may be due to suture lines. Please correlate with surgical history. Other findings:None. IMPRESSION: No acute findings. Dictated by: Watson Burk MD 06/25/2020 12:26 Watson Burk MD in OV 06/25/2020 12:26
--- NOTE | 2020-06-25 07:21 | HMH.GSPN ---
Subjective Narrative: He states that he feels a little bit better than a few days ago . He continues to have diarrhea. He states that he is still bloated...but less than yesterday . Progress Note: A&P (1) Acute perforated appendicitis Status: Acute Assessment and plan: Overall, doing fairly well status post laparoscopic appendectomy. No sign of postoperative bleeding or leak. (2) Abnormal CT scan, esophagus Status: Acute (3) TBI (traumatic brain injury) Status: Acute (4) Hepatitis C Status: Chronic (5) Hyperbilirubinemia Status: Acute (6) Cirrhosis Status: Acute (7) Atrial flutter Status: Acute (8) Obesity (BMI 30.0-34.9) Status: Acute (9) DVT (deep venous thrombosis) Status: Acute (10) Abdominal distention Status: Acute Assessment and plan: Flat and upright films ordered (to establish baseline) (11) Diarrhea Status: Acute Assessment and plan: Diarrhea panel ordered Exam Vital signs and Labs for Last 24 Hours: Temp Pulse Resp BP Pulse Ox 98 F 90 22 126/83 91 L 06/25/20 04:00 06/25/20 04:00 06/25/20 04:00 06/25/20 04:00 06/25/20 04:00 I & O for Last 24 hours: Intake & Output 06/22/20 06/23/20 06/24/20 06/25/20 11:59 11:59 11:59 11:59 Intake Total 4167 / 4167 3324 / 3324 2755 / 2755 2102 / 2102 Output Total 700 / 700 1350 / 1350 627 / 627 400 / 400 Balance 3467 / 3467 1973 / 1973 2127 / 2128 1702 / 1702 Weight 207 lb 14.334 oz 208 lb 8 oz 220 lb 2 oz 220 lb 6 oz - Constitutional no acute distress - *Routine Respiratory Exam Absent: respiratory distress - *Routine Cardiovascular Exam Present: RRR - *Routine Abdominal Exam Present: soft, distended Comments: The patient has appropriate postoperative tenderness. His incisions are without sign of infection. He is somewhat distended; however, this is per his description less than yesterday . He is certainly more distended than 48 hours ago.
[2020-06-25 07:25] LABS: Basophils % 0.5 % (0.1-2.0); Eosinophils # 0.3 K/mm3 (0.0-0.4); Eosinophils % 3.5 % (0.1-12.0); Hematocrit 37.7 % (42.0-52.0); Hemoglobin 13.1 g/dL (14.1-18.0); Lymphocytes # 1.6 K/mm3 (0.7-4.5); Lymphocytes % 18.2 % (10-50); Mean Corpuscular HGB Conc 34.8 g/dL (31.8-35.4); Mean Corpuscular Hemoglobin 33.7 pg (27.0-31.2); Mean Corpuscular Volume 96.6 fl (80-94); Mean Platelet Volume 8.9 fl (7.4-10.4); Monocytes # 0.6 K/mm3 (0.1-1.0); Monocytes % 6.5 % (1.7-9.3); Neutrophils # 6.1 K/mm3 (1.8-7.8); Neutrophils % 71.3 % (37.0-80.0); Platelet Count 171 K/mm3 (142-424); Red Cell Distribution Width 12.9 % (11.5-17.5); White Blood Count 8.5 K/mm3 (4.8-10.8)
[2020-06-25 07:38] LABS: Blood Urea Nitrogen 9 mg/dl (9-20); Calcium 7.8 mg/dl (8.4-10.2); Carbon Dioxide 32 mmol/L (22.0-30.0); Chloride 102 mmol/L (98-107); Creatinine Clearance Estimated 130 mL/min (50-200); Estimated Glomerular Filt Rate 87 ml/min (>60); GFR (African American) 106 ML/MIN (>60); Glucose 107 mg/dl (74-100); Sodium 137 mmol/L (136-145)
[2020-06-25 08:53] LABS: Adenovirus F 40/41, stool Not Detected (NotDetected); Astrovirus Not Detected (NotDetected); Campylobacter Not Detected (NotDetected); Clostridium Difficile A/B, PCR Not Detected (NotDetected); Cryptosporidium Not Detected (NotDetected); Cyclospora Cayetanesis Not Detected (NotDetected); Entamoeba histolytica Not Detected (NotDetected); Enteroaggregative E coli Not Detected (NotDetected); Enteropathogenic E coli Not Detected (NotDetected); Enterotoxigenic E coli Not Detected (NotDetected); Giardia lamblia Not Detected (NotDetected); Norovirus Not Detected (NotDetected); Plesimonas Shigalloides, PCR Not Detected (NotDetected); Rotavirus A Not Detected (NotDetected); Salmonella, PCR Not Detected (NotDetected); Sapovirus Not Detected (NotDetected); Shiga-like toxin E coli Not Detected (NotDetected); Shigella Enterovasive E coli Not Detected (NotDetected); Vibrio Cholerae Not Detected (NotDetected); Vibrio, PCR Not Detected (NotDetected); Yersinia Entercolitica, PCR Not Detected (NotDetected)
--- NOTE | 2020-06-25 08:55 | HMH.ACPN2 ---
Internal Medicine - PN: Subj *Date: 06/25/20 *Time: 11:40 Interval history: 55-year-old male patient up and walking in room, mother assisted patient back to bed. Mother reports patient had a regular formed bowel movement earlier this morning, patient reports abdomen is feeling better and less distended than yesterday. He was reminded to be up to the chair for all meals and up walking around in the room Exam Vital signs and Labs for Last 24 Hours: Temp Pulse Resp BP Pulse Ox 98.5 F 78 16 141/84 H 96 06/25/20 07:39 06/25/20 07:39 06/25/20 07:39 06/25/20 07:39 06/25/20 07:39 Laboratory Results - last 24 hr 06/25/20 06:49: WBC 8.5, RBC 3.90 L, Hgb 13.1 L, Hct 37.7 L, MCV 96.6 H, MCH 33.7 H, MCHC 34.8, RDW 12.9, Plt Count 171, MPV 8.9, Neut % (Auto) 71.3, Lymph % (Auto) 18.2, [place] % (Auto) 6.5, Eos % (Auto) 3.5, Baso % (Auto) 0.5, Neut # (Auto) 6.1, Lymph # (Auto) 1.6, [place] # (Auto) 0.6, Eos # (Auto) 0.3, Baso # (Auto) 0.0 06/25/20 06:49: Sodium 137, Potassium 3.0 L, Chloride 102, Carbon Dioxide 32 H, Anion Gap 6.0, BUN 9, Creatinine 0.90, Estimated Creat Clear 130, Estimated GFR 87, Est GFR ( Amer) 106, Glucose 107 H, Calcium 7.8 L I & O for Last 24 hours: Intake & Output 06/22/20 06/23/20 06/24/20 06/25/20 23:59 23:59 23:59 23:59 Intake Total 4281 / 4281 3155 / 4105 2150 / 2150 1502 / 1502 Output Total 1100 / 1100 925 / 927 752 / 752 Balance 3181 / 3181 2230 / 3178 1398 / 1398 1502 / 1502 Weight 207 lb 14.334 oz 209 lb 7.026 oz 220 lb 2 oz 220 lb 6 oz - Constitutional no acute distress - *Routine HEENT Exam Head: Present: normocephalic Eye: Present: EOMI ENT: Present: mucous membranes moist - *Routine Respiratory Exam Present: CTA bilaterally. Absent: accessory muscle use - *Routine Cardiovascular Exam Present: RRR - *Routine Abdominal Exam Present: soft, normoactive bowel sounds, distended - *Routine Extremities Exam Present: full ROM, pulses intact. Absent: cyanosis, clubbing, edema, calf tenderness - *Routine Skin Exam Present: dry, warm, wounds. Absent: cyanosis, erythema Comments: Steri-Strips to multiple sites on abdomen clean/dry/intact - *Routine Neurological Exam Present: alert, normal reflexes, altered mental status. Absent: motor deficit - Routine Psychiatric Exam Present: cooperative, unable to assess Assessment and Plan (1) Acute perforated appendicitis Status: Acute Category: Medical Code(s): K35.32 - Acute appendicitis with perforation and localized peritonitis, without abscess (2) Abnormal CT scan, esophagus Status: Acute Category: Medical Code(s): R93.3 - Abnormal findings on diagnostic imaging of other parts of digestive tract (3) TBI (traumatic brain injury) Status: Acute Category: Medical Code(s): S06.9X9A - Unspecified intracranial injury with loss of consciousness of unspecified duration, initial encounter (4) Hepatitis C Status: Chronic Category: Medical Code(s): B19.20 - Unspecified viral hepatitis C without hepatic coma (5) Hyperbilirubinemia Status: Acute Category: Medical Code(s): E80.6 - Other disorders of bilirubin metabolism (6) Cirrhosis Status: Acute Category: Medical Code(s): K74.60 - Unspecified cirrhosis of liver (7) Atrial flutter Status: Acute Category: Medical Code(s): I48.92 - Unspecified atrial flutter (8) Obesity (BMI 30.0-34.9) Status: Acute Category: Medical Code(s): E66.9 - Obesity, unspecified (9) DVT (deep venous thrombosis) Status: Acute Qualifiers: DVT location: lower extremity Affected thrombotic vein of extremity: tibial Chronicity: acute Laterality: left Qualified Code(s): I82.442 - Acute embolism and thrombosis of left tibial vein Category: Medical Code(s): I82.409 - Acute embolism and thrombosis of unspecified deep veins of unspecified lower extremity (10) Abdominal distention Status: Acute Category: Medical Code(s): R14.0 -
--- NOTE | 2020-06-25 11:50 | PC.NURSE ---
Pt has ambulated in room multiple times this AM, back and forth to bathroom. He has also walked in hallway w/ PT and nursing staff. He is currently sitting up in chair w/ mother @ side. Medicated per APR w/ Roderick for abdominal pain. Call karen w/in reach. No needs @ this time.
--- NOTE | 2020-06-25 12:01 | HMH.DCSUM ---
General - General Admission date:: 06/21/20 Discharge date: 06/25/20 HPI HPI: This is a 55-year-old gentleman presents the emergency department with at least a few days history of abdominal pain. He states that he has just been feeling sick for at least a few days maybe a week . No definitive fevers. Some nausea. Appetite is not great . Evaluation in the emergency department revealed leukocytosis and radiographic evidence of likely perforated appendicitis. Hospital Course Hospital Course: The patient underwent laparoscopic appendectomy. Please see operative report for detail. Initially, he convalesced well. He remained afebrile and his white blood cell count normalized. On the evening of postoperative day 2 he developed significant tachycardia. A rapid response was initiated and he was diagnosed with atrial flutter. The medical service was consulted for evaluation and management. He underwent echocardiogram, CT scan/PE protocol, and lower extremity venous doppler. In addition, he did have elevated troponin. Serial laboratory evaluation revealed downward trending by the time of discharge. No evidence of acute ischemia noted on EKG and no chest pain per patient. Results of the above studies revealed no definitive pulmonary embolus; however, a probable DVT in the left posterior tibial vein was discovered. He was placed on Xarelto. On postoperative day 3 he was found to be increasingly distended. He continued to have reports of bowel function; however, was felt to have at least some degree of postoperative ileus. By postoperative day 4 he was less distended; however, was complaining of loose stools . A diarrhea panel was obtained (results negative). The original CT scan, as well as follow-up chest CT scan confirmed the patient's known diagnosis of cirrhosis. His bilirubin was elevated at the time of admission. Follow-up bilirubin was stable. He is currently scheduled to see gastroenterology/hepatology for further evaluation and management as an outpatient. At the time of discharge the patient was afebrile with stable and normal vital signs. He was ambulating at essentially baseline. Prescriptions for Augmentin and Xarelto were transferred to his pharmacy. Objective Vital signs: Temp Pulse Resp BP Pulse Ox 98.5 F 62 18 104/64 L 95 06/25/20 11:09 06/25/20 11:09 06/25/20 11:09 06/25/20 11:09 06/25/20 11:09 Results Completed studies during hospitalization [Text1]: Troponin 0.13 at time of discharge (down from 0.27) Labs on day of discharge: Labs from last 24 hours 06/25/20 06/25/20 06:49 06:49 WBC 8.5 RBC 3.90 L Hgb 13.1 L Hct 37.7 L MCV 96.6 H MCH 33.7 H MCHC 34.8 RDW 12.9 Plt Count 171 MPV 8.9 Neut % (Auto) 71.3 Lymph % (Auto) 18.2 [place] % (Auto) 6.5 Eos % (Auto) 3.5 Baso % (Auto) 0.5 Neut # (Auto) 6.1 Lymph # (Auto) 1.6 [place] # (Auto) 0.6 Eos # (Auto) 0.3 Baso # (Auto) 0.0 Sodium 137 Potassium 3.0 L Chloride 102 Carbon Dioxide 32 H Anion Gap 6.0 BUN 9 Creatinine 0.90 Estimated Creat Clear 130 Estimated GFR 87 Est GFR ( Amer) 106 Glucose 107 H Calcium 7.8 L Preliminary micro results at discharge 06/21/20 13:54 Blood Culture - Preliminary Blood NO GROWTH AFTER 48 HOURS 06/21/20 13:54 Blood Culture - Preliminary Blood NO GROWTH AFTER 48 HOURS - Impressions Initial CT scan of abdomen/pelvis IMPRESSION: 1. Right lower quadrant retrocecal phlegmon, most likely due to perforated appendicitis, much less likely perforated cecal diverticulitis. There are mesenteric gas bubbles, soft tissue edema and trace fluid, no organized abscess collection. 2. Micronodular contour of the liver, suspicious for cirrhosis. 3. Low-density sludge or gallstones pooling dependently in the gallbladder. 4. Mild splenomegaly. 5. Mild portacaval, periportal
--- NOTE | 2020-06-26 15:48 | PC.NURSE ---
patient mother called today about patient not getting metopolol succinate 25mg when he left. called theron sanches aprn about this and he stated he would send a prescription to patient pharmacy at this time. called and relayed this to patient/patient mother
== END 2020-06-25 14:05 | disposition home or self-care (01) | DRG 339 ==
LOC: ER 11:19 → 2ND 14:55
PROVIDERS: Nurse Practitioner Family; Admitting Provider Surgery; Emergency Provider Emergency Medicine; PCP Emergency Medicine; Visit Provider Surgery
PROC: 0DTJ4ZZ Resection of Appendix, Percutaneous Endoscopic Approach (ICD-10-PCS; CPT 44970; principal; 2020-06-21 14:30)
DX: K35.32 Acute appendicitis with perforation, localized peritonitis, and gangrene, without abscess (principal); I48.92 Unspecified atrial flutter; I82.442 Acute embolism and thrombosis of left tibial vein; K56.7 Ileus, unspecified; F41.9 Anxiety disorder, unspecified; F32.9 Major depressive disorder, single episode, unspecified; M19.90 Unspecified osteoarthritis, unspecified site; Z87.820 Personal history of traumatic brain injury; K74.60 Unspecified cirrhosis of liver; E66.9 Obesity, unspecified; Z68.31 Body mass index [BMI] 31.0-31.9, adult; R19.7 Diarrhea, unspecified; B18.2 Chronic viral hepatitis C; R77.8 Other specified abnormalities of plasma proteins
CPT/HCPCS: 44970; 36415; 71045; 71275; 74021; 74177; 80048; 80053; 81001; 83605; 83690; 84484; 85007; 85025; 87040; 87507; 87581; 87633; 87798; 93005; 93306; 93970; 96365; 96367; 96375; 97116; 97161; 97166; 97530; 99203; G0463; J2405; J2543; Q9967

== ENCOUNTER → 2020-08-04 08:45 | Outpatient (CLI) | payer BC, SELFPAY ==
--- NOTE | 2020-08-04 08:47 | US_ITS ---
PROCEDURE: US LIVER CLINICAL INDICATION: CHRONIC HEP C VIRUS COMPARISON: CT CT ANGIO CHEST from 06/23/2020 FINDINGS: PANCREAS: Unremarkable. No obvious mass or abnormal fluid collection. No ductal dilatation LIVER: There is some heterogeneous coarse echogenicity of the liver. No focal liver lesion is evident. There is appropriate direction of blood flow within a non dilated portal vein. RIGHT KIDNEY: Unremarkable. Normal size and echogenicity. No hydronephrosis GALLBLADDER: Gallbladder wall is slightly thickened with thick sludge noted.. Gallbladder wall measures approximately 4 mm. No shadowing stones are apparent. There are few small foci of increased echogenicity within the sludge which could be due to nonshadowing stones. Common bile duct is normal at 3 mm. No pericholecystic fluid. The patient reports a palpable midline abdominal wall mass which appears to represent a lipoma measuring 7 x 3 cm IMPRESSION: 1. Gallbladder wall thickening with thick appearing gallbladder sludge and possible nonshadowing stones. 2. Mild heterogeneous coarse echogenicity of the liver nonspecific and may be seen with hepatitis. 3. Abdominal wall lipoma Dictated by: Watson Burk MD 08/04/2020 13:36 Watson Burk MD in [place] 08/04/2020 13:36
== END ==
PROVIDERS: PCP Emergency Medicine; Visit Provider Physician Assistant
DX: B18.2 Chronic viral hepatitis C (principal)
CPT/HCPCS: 76705

== ENCOUNTER 2020-11-13 13:10 | Emergency (ER) | payer BC, SELFPAY ==
--- NOTE | 2020-11-13 13:19 | XR_ITS ---
PROCEDURE: XR KUB CLINICAL INDICATION: CONSTIPATION COMPARISON: CT CT ABDOMEN PELVIS W CON from 06/21/2020 FINDINGS: Gas pattern-The bowel gas pattern is unremarkable. No obvious obstruction. Minimal scattered stool and gas is seen in the fatty flexure and proximal transverse colon. Calcifications-No abnormal calcifications are evident. No obvious renal or ureteral calculi. Bones-there are mild hypertrophic facet changes the L4-5 level.. IMPRESSION: No acute findings and no significant constipation Dictated by: Dr. Moi Goode MD 11/13/2020 13:32 Dr. Moi Goode MD in [place] 11/13/2020 13:32
[2020-11-13 13:39] VITALS: BP 131/84; PULSE 67; RESP 18; TEMP 36.8; O2SAT 98; BMI 29.6
--- NOTE | 2020-11-13 13:52 | HMH.EDUTC ---
[facility] [place] Disposition Clinical Impression: Irregular bowel habits Disposition: Home, Self-Care Condition on Discharge: Good Instructions: Increased Dietary Fiber May Improve Constipation Conditions With Pelvic Aries, DI for Constipation Additional Instructions: Make sure to drink plenty of water Eat a diet high in fiber to help regulate your bowel and have normal bowel movement Return if needed Straight to ER if any life threatening symptoms Referrals: Sathish Clayton MD [Primary Care Provider] - As needed Time of Disposition: 13:57 Medical Decision Making - Chad Inquiry Pt receiving controlled substance: No Chad was queried for this patient: No Vital Signs: 11/13/20 13:39 Temperature 98.3 F Temperature Source Oral Pulse Rate [Right Radial] 67 Respiratory Rate 18 Blood Pressure [Right Arm] 131/84 Blood Pressure Mean [Right Arm] 99 02 Sat by Pulse Oximetry 98 Oxygen Delivery Method Room Air - Radiology Data #1 Image(s): KUB Image Reviewed: Yes I have reviewed radiologist's interpretation IMPRESSION: No acute findings and no significant constipation [facility] HPI - General Stated complaint: Bowel issues Time Seen by Provider: 11/13/20 13:52 Mode of Arrival: Ambulatory Source of Information: Patient Limitations: No Limitations Description of Symptoms (Recalled from Triage Doc. by RN): C/O no BM for several days. 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 and she helps him States that he hasnt had BM in couple days that she is aware of and he cannot remember States that she has given him stool softners and still unsure if he has went so she was worried and wanted to get him checked to see if he may be constipated and get an xray of his stomach - Related Data Home Medications Medication Instructions Recorded Confirmed Multivit-Minerals/FA/Lycopene [One 1 tab PO DAILY 06/21/20 10/07/20 Daily [employer]'s airpim Tablet] Quetiapine Fumarate 100 mg PO BID 06/21/20 10/07/20 Omeprazole [Omeprazole 20mg 20 mg PO DAILY 06/22/20 10/07/20 Capsule] Previous Rx's Medication Instructions Recorded Rivaroxaban [Xarelto 20mg Tablet*] 20 mg PO DAILY #30 tab 06/25/20 citalopram 10 mg tablet See Rx Instructions .ROUTE 09/05/20 .COMPLEX #30 tablet folic acid 1 mg tablet See Rx Instructions .ROUTE 09/05/20 .COMPLEX #30 tablet thiamine HCl (vitamin B1) 100 mg See Rx Instructions .ROUTE 09/05/20 tablet .COMPLEX #30 tab metoprolol succinate 25 mg See Rx Instructions .ROUTE 10/10/20 tablet,extended release 24 hr .COMPLEX #30 tab tamsulosin 0.4 mg capsule See Rx Instructions .ROUTE 10/10/20 .COMPLEX #30 cap Allergies Allergy/AdvReac Type Severity Reaction Status Date / Time No Known Allergies Allergy Verified 10/07/20 14:03 - Worker's Comp Is this a Worker's Comp case?: No [facility] History - Hepatitis A Screen Drug use history?: No High risk sexual behaviors?: No History of sexually transmitted infection?: No Currently employed?: No Childcare worker?: No Do you have indoor plumbing?: Yes Do you have electricity?: Yes Attestation statement:: This patient has been screened for Hepatitis A risk factors. Medical History: Reports:: Anxiety, Depression Denies:: Aneurysm, Asthma, Cancer, Congestive Heart Failure, Chronic Obstructive Pulmonary Disease (COPD), Cerebrovascular Accident, Diabetes Mellitus Type 1, Diabetes Mellitus Type 2, Gastroesophageal Reflux Disease(GERD), Hyperlipidemia, Hypertension, Kidney Stones, Myocardial Infarction, Seizures Other Medical History: Reports: Arthritis, Other. Denies: Hypothyroidism, Thyroid Disease Comment: ARTHRITIS Laterality Cases: Bilateral: Tonsillectom
[2020-11-13 14:16] VITALS: BP 146/88; PULSE 98; RESP 19; TEMP 36.6; O2SAT 97
== END 2020-11-13 14:16 | disposition home or self-care (01) ==
PROVIDERS: Emergency Provider Nurse Practitioner; PCP Emergency Medicine
DX: R19.4 Change in bowel habit (principal); K59.00 Constipation, unspecified
CPT/HCPCS: 74018; 99202; G0463

== ENCOUNTER → 2021-05-04 16:00 | Outpatient (CLI) | payer BC, SELFPAY ==
[2021-05-04 18:37] LABS: Basophils # 0.1 K/mm3 (0-0.2); Basophils % 1.1 % (0.1-2.0); Eosinophils # 0.2 K/mm3 (0.0-0.4); Eosinophils % 2.7 % (0.1-12.0); Hematocrit 50.2 % (42.0-52.0); Hemoglobin 16.7 g/dL (14.1-18.0); Lymphocytes % 33.6 % (10-50); Mean Corpuscular HGB Conc 33.2 g/dL (31.8-35.4); Mean Corpuscular Hemoglobin 32.8 pg (27.0-31.2); Mean Platelet Volume 10.8 fl (7.4-10.4); Monocytes # 0.4 K/mm3 (0.1-1.0); Monocytes % 7.4 % (1.7-9.3); Neutrophils # 3.2 K/mm3 (1.8-7.8); Neutrophils % 55.1 % (37.0-80.0); Platelet Count 214 K/mm3 (142-424); Red Blood Count 5.07 M/mm3 (4.60-6.20); Red Cell Distribution Width 13.2 % (11.5-17.5); White Blood Count 5.8 K/mm3 (4.8-10.8)
[2021-05-04 19:02] LABS: Free T4 (Free Thyroxine) 1.16 ng/dl (0.78-2.19)
[2021-05-04 19:03] LABS: 25-OH Vitamin D, Total 34.6 ng/mL (30-100)
[2021-05-04 20:04] LABS: Alanine Aminotransferase 18 U/L (12-78); Albumin Level 4.6 g/dl (3.5-5.0); Albumin/Globulin Ratio 1.2 (1.1-1.8); Alkaline Phosphatase 85 U/L (38-126); Anion Gap 14.4 mEq/L (5-15); Aspartate Amino Transferase 31 U/L (17-59); Bilirubin,Total 1.3 mg/dl (0.2-1.3); Blood Urea Nitrogen 21 mg/dl (9-20); Calcium 9.3 mg/dl (8.4-10.2); Carbon Dioxide 26 mmol/L (22.0-30.0); Chloride 104 mmol/L (98-107); Cholesterol 232 mg/dl (140-200); Estimated Glomerular Filt Rate 87 ml/min (>60); GFR (African American) 105 ML/MIN (>60); Glucose 116 mg/dl (74-100); HDL Cholesterol 29 mg/dl (40-60); Potassium 4.4 mmoL/L (3.5-5.1); Sodium 140 mmol/L (136-145); Total Protein,Serum 8.6 g/dl (6.3-8.2); Triglycerides 215 mg/dl (30-150); VLDL Cholesterol 43 mg/dL (0-40)
[2021-05-04 20:05] LABS: Hemoglobin A1C 5.3 % (4.0-6.0)
[2021-05-04 20:15] LABS: Direct LDL Cholesterol 145.06 mg/dL (100-129)
[2021-05-04 20:35] LABS: Prostate Specific Ag Screen 1.2 ng/ml (0.0-4.0); Thyroid Stimulating Hormone 0.64 uIU/mL (0.465-4.68)
[2021-05-06 08:23] LABS: Testosterone,Total 183 ng/dL (264-916)
== END ==
PROVIDERS: Visit Provider Emergency Medicine
DX: K74.60 Unspecified cirrhosis of liver (principal); R35.0 Frequency of micturition; E66.9 Obesity, unspecified; Z68.30 Body mass index [BMI] 30.0-30.9, adult; Z12.5 Encounter for screening for malignant neoplasm of prostate
CPT/HCPCS: 80053; 80061; 82306; 83036; 84403; 84439; 84443; 85025; 87086; G0103

== ENCOUNTER → 2021-05-15 07:58 | Outpatient (CLI) | payer BC, SELFPAY ==
[2021-05-16 08:38] LABS: Testosterone,Total 356 ng/dL (264-916)
== END ==
PROVIDERS: Visit Provider Physician Assistant
DX: R79.89 Other specified abnormal findings of blood chemistry (principal)
CPT/HCPCS: 36415; 84403

== ENCOUNTER 2022-03-11 17:47 | Emergency (ER) | payer BC, SELFPAY ==
[2022-03-11 17:48] VITALS: BP 139/97; PULSE 103; RESP 16; TEMP 36.6; O2SAT 94; BMI 29.5
--- NOTE | 2022-03-11 18:08 | CT_ITS ---
PROCEDURE INFORMATION: Exam: CT Cervical Spine Without Contrast Exam date and time: 03/11/2022 6:39 PM Age: 56 years old Clinical indication: Injury or trauma; Fall; Additional info: Fall with head injury TECHNIQUE: Imaging protocol: Computed tomography of the cervical spine without contrast. Total images: 283 Radiation optimization: All CT scans at this facility use at least one of these dose optimization techniques: automated exposure control; mA and/or kV adjustment per patient size (includes targeted exams where dose is matched to clinical indication); or iterative reconstruction. Other protocol: This patient has received [address] and 0 known cardiac nuclear medicine studies in the 12 months prior to the current study. COMPARISON: FINDINGS: Bones/joints: There is a nonspecific reversal of the normal cervical lordosis. The cervical spine demonstrates mild degenerative changes at multiple levels. No evidence of acute fracture. Disc space narrowing and bilateral neural foraminal narrowing noted at C5-C6 C6-C7 and C7-T1. Prevertebral and retropharyngeal spaces: Prevertebral soft tissues are within normal limits. Lungs: Lung apices are normal. Soft tissues: Unremarkable. IMPRESSION: 1. There is a nonspecific reversal of the normal cervical lordosis. 2. The cervical spine demonstrates mild degenerative changes at multiple levels. 3. No evidence of acute fracture. 4. Prevertebral soft tissues are within normal limits.
--- NOTE | 2022-03-11 18:08 | CT_ITS ---
PROCEDURE INFORMATION: Exam: CT Head Without Contrast Exam date and time: 03/11/2022 6:37 PM Age: 56 years old Clinical indication: Injury or trauma; Fall; Additional info: Fall with head injury TECHNIQUE: Imaging protocol: Computed tomography of the head without contrast. Total images: 269 Radiation optimization: All CT scans at this facility use at least one of these dose optimization techniques: automated exposure control; mA and/or kV adjustment per patient size (includes targeted exams where dose is matched to clinical indication); or iterative reconstruction. Other protocol: This patient has received [address] and 0 known cardiac nuclear medicine studies in the 12 months prior to the current study. COMPARISON: HEADWO CT head/brain wo con 10/09/2017 3:56 PM FINDINGS: Brain: Age-related atrophy and chronic white matter ischemic changes, with no evidence of an acute intracranial abnormality. No hemorrhage, mass effect or midline shift. Cerebral ventricles: No ventriculomegaly. Paranasal sinuses: Visualized sinuses are unremarkable. No fluid levels. Mastoid air cells: Visualized mastoid air cells are well aerated. Bones/joints: No acute fracture. Soft tissues: No acute changes IMPRESSION: 1. Age-related atrophy and chronic white matter ischemic changes, with no evidence of an acute intracranial abnormality. 2. No hemorrhage, mass effect or midline shift.
[2022-03-11 18:30] VITALS: BP 131/91; PULSE 102; O2SAT 95
--- NOTE | 2022-03-11 18:34 | PC.NURSE ---
pt to CT at this time
--- NOTE | 2022-03-11 18:45 | PC.NURSE ---
pt returned from CT
[2022-03-11 19:00] VITALS: BP 136/98; PULSE 96; O2SAT 93
--- NOTE | 2022-03-11 20:15 | PC.NURSE ---
suturing at bedside
--- NOTE | 2022-03-11 20:31 | HMH.EDGENADL ---
Discharge Plan Disposition Patient Disposition: Home, Self-Care Condition: Good Prescriptions Prescriptions: No Action atorvastatin 10 mg tablet See Rx Instructions .ROUTE .COMPLEX Qty: 90 3RF Dose Instruction: TAKE ONE TABLET BY MOUTH AT BEDTIME Rx Instructions: TAKE ONE TABLET BY MOUTH AT BEDTIME omeprazole 20 mg capsule,delayed release(DR/EC) 20 mg PO DAILY Qty: 90 3RF Xarelto 20 mg tablet See Rx Instructions .ROUTE .COMPLEX Qty: 30 3RF Dose Instruction: TAKE ONE TABLET BY MOUTH ONCE A DAY Rx Instructions: TAKE ONE TABLET BY MOUTH ONCE A DAY citalopram 10 mg tablet See Rx Instructions .ROUTE .COMPLEX Qty: 30 3RF Dose Instruction: TAKE ONE TABLET BY MOUTH ONCE A DAY Rx Instructions: TAKE ONE TABLET BY MOUTH ONCE A DAY metoprolol succinate 25 mg tablet extended release 24 hr See Rx Instructions .ROUTE .COMPLEX Qty: 30 3RF Dose Instruction: TAKE ONE TABLET BY MOUTH ONCE A DAY Rx Instructions: TAKE ONE TABLET BY MOUTH ONCE A DAY folic acid 1 mg tablet See Rx Instructions .ROUTE .COMPLEX Qty: 30 3RF Dose Instruction: TAKE ONE TABLET BY MOUTH ONCE A DAY Rx Instructions: TAKE ONE TABLET BY MOUTH ONCE A DAY finasteride 5 mg tablet See Rx Instructions .ROUTE .COMPLEX Qty: 30 3RF Dose Instruction: TAKE ONE TABLET BY MOUTH ONCE A DAY Rx Instructions: TAKE ONE TABLET BY MOUTH ONCE A DAY quetiapine 100 mg tablet See Rx Instructions .ROUTE .COMPLEX Qty: 60 3RF Dose Instruction: TAKE ONE TABLET BY MOUTH 2 TIMES A DAY Rx Instructions: TAKE ONE TABLET BY MOUTH 2 TIMES A DAY thiamine HCl (vitamin B1) 100 mg tablet See Rx Instructions .ROUTE .COMPLEX Qty: 30 3RF Dose Instruction: TAKE ONE TABLET BY MOUTH ONCE A DAY Rx Instructions: TAKE ONE TABLET BY MOUTH ONCE A DAY tamsulosin 0.4 mg capsule See Rx Instructions .ROUTE .COMPLEX Qty: 30 3RF Dose Instruction: TAKE ONE CAPSULE BY MOUTH ONCE A DAY Rx Instructions: TAKE ONE CAPSULE BY MOUTH ONCE A DAY multivit with [id number] 1 EACH tablet 1 tab PO DAILY Referrals Follow up/Referrals: Sathish Clayton MD [Primary Care Provider] - See instructions Activity Restrictions/Add. Instructions Additional Instructions/Restrictions: Additional instructions for SCALP LACERATION: Clean the wound daily with soap and water. You may shower and wash your scalp. Avoid submerging the wound. No swimming. Apply a thin film of antibiotic ointment such as neosporin, polysporin, or triple antibiotic daily after showering. Be careful when combing or brushing hair so that you so not snag the adama with a comb or brush. See your primary care physician or return to the [facility] in 7 days for staple removal. The [facility] is open 8 AM to 8 PM, 7 days a week. Return if any signs of infection including increasing pain, pus drainage, swelling, redness, red streaks, or fever. Additional instructions for HEAD INJURY: Return immediately if severe headache, vomiting, problems with vision or speech, numbness or weakness of the extremities, or severe neck pain. Clinical Impressions Clinical Impression: Laceration of scalp Instructions Patient Instructions: DI for Laceration Repair -- Adama, DI for Laceration Repair of the Scalp, DI for Closed Head Injury Discharge ED Provider: Terry Membreno General Adult HPI General Chief complaint: Fall Stated complaint: ao 03/11 fell lac to head Time Seen by Provider: 03/11/22 19:44 Mode of Arrival: Ambulatory Source of Information: Patient Limitations: No Limitations Description of Symptoms (Recalled from ER Triage Doc. by RN): pt was walking up the court house steps when he tripped and fell backwards and hit his head. pt has a laceration to the top of his head. pt denies LOC and is positive for blood thinners History of Present Illness HPI narrat
[2022-03-11 20:41] VITALS: BP 156/98; PULSE 102; RESP 20; TEMP 36.6; O2SAT 94
== END 2022-03-11 20:44 | disposition home or self-care (01) ==
PROVIDERS: Emergency Provider Emergency Medicine; PCP Emergency Medicine
DX: S01.01XA Laceration without foreign body of scalp, initial encounter (principal); W01.0XXA Fall on same level from slipping, tripping and stumbling without subsequent striking against object, initial encounter; Z23 Encounter for immunization
CPT/HCPCS: 12004; 70450; 72125; 90471; 90715; 99285

== ENCOUNTER 2022-03-18 13:21 | Emergency (ER) | payer BC, SELFPAY ==
[2022-03-18 13:21] VITALS: BP 116/76; PULSE 76; RESP 18; TEMP 37.1; O2SAT 100; BMI 29.9
[2022-03-18 13:45] VITALS: BP 116/76; PULSE 76; RESP 18; TEMP 37.1; O2SAT 100
== END 2022-03-18 14:00 | disposition home or self-care (01) ==
PROVIDERS: Emergency Provider Nurse Practitioner; PCP Emergency Medicine
DX: Z48.02 Encounter for removal of sutures (principal)

== ENCOUNTER → 2022-05-18 23:10 | Outpatient (CLI) | payer BC, SELFPAY ==
[2022-05-18 19:25] LABS: Basophils % 0.6 % (0.1-2.0); Eosinophils # 0.2 K/mm3 (0.0-0.4); Eosinophils % 3.1 % (0.1-12.0); Hematocrit 51.8 % (42.0-52.0); Hemoglobin 17.3 g/dL (14.1-18.0); Lymphocytes % 30.2 % (10-50); Mean Corpuscular HGB Conc 33.3 g/dL (31.8-35.4); Mean Corpuscular Hemoglobin 32.6 pg (27.0-31.2); Mean Corpuscular Volume 97.9 fl (80-94); Mean Platelet Volume 10.3 fl (7.4-10.4); Monocytes # 0.4 K/mm3 (0.1-1.0); Monocytes % 5.8 % (1.7-9.3); Neutrophils % 60.3 % (37.0-80.0); Platelet Count 179 K/mm3 (142-424); Red Blood Count 5.29 M/mm3 (4.60-6.20); Red Cell Distribution Width 12.9 % (11.5-17.5); White Blood Count 6.7 K/mm3 (4.8-10.8)
[2022-05-18 19:57] LABS: Alanine Aminotransferase 23 U/L (12-78); Albumin Level 4.6 g/dl (3.5-5.0); Albumin/Globulin Ratio 1.1 (1.1-1.8); Alkaline Phosphatase 98 U/L (38-126); Anion Gap 12.1 mEq/L (5-15); Aspartate Amino Transferase 31 U/L (17-59); Bilirubin,Total 1.5 mg/dl (0.2-1.3); Calcium 9.4 mg/dl (8.4-10.2); Carbon Dioxide 28 mmol/L (22.0-30.0); Chloride 100 mmol/L (98-107); Chol/HDL Ratio 5.7 (1-3.5); Cholesterol 165 mg/dl (140-200); Globulin 4.3 g/dL (1.3-3.2); Glucose 104 mg/dl (74-100); HDL Cholesterol 29 mg/dl (40-60); Potassium 4.1 mmoL/L (3.5-5.1); Sodium 136 mmol/L (136-145); Total Protein,Serum 8.9 g/dl (6.3-8.2); Triglycerides 241 mg/dl (30-150); VLDL Cholesterol 48 mg/dL (0-40)
[2022-05-18 20:02] LABS: Blood Urea Nitrogen 19 mg/dl (9-20); Estimated Glomerular Filt Rate 87 ml/min (>60); GFR (African American) 105 ML/MIN (>60)
[2022-05-18 20:08] LABS: Direct LDL Cholesterol 94.99 mg/dL (100-129)
[2022-05-18 20:15] LABS: 25-OH Vitamin D, Total 27.9 ng/mL (30-100); Free T4 (Free Thyroxine) 1.13 ng/dl (0.78-2.19)
[2022-05-18 20:28] LABS: Prostate Specific Ag Screen 0.1 ng/ml (0.0-4.0); Thyroid Stimulating Hormone 1.53 uIU/mL (0.465-4.68)
== END ==
PROVIDERS: PCP Emergency Medicine; Visit Provider Emergency Medicine
DX: E66.9 Obesity, unspecified (principal); R53.83 Other fatigue; Z68.29 Body mass index [BMI] 29.0-29.9, adult; E55.9 Vitamin D deficiency, unspecified; Z12.5 Encounter for screening for malignant neoplasm of prostate
CPT/HCPCS: 80053; 80061; 82306; 84439; 84443; 85025; G0103

== ENCOUNTER → 2022-06-14 06:49 | Outpatient (CLI) | payer BC, SELFPAY ==
--- NOTE | 2022-06-14 | CA_ITS ---
APPROVED REPORT Exam: Pharmacologic Technologist: Kailey Burden, Ht: 5 ft 8 in Wt: 197 lbs BSA: 2.03 m2 HR: 61 bpm BP: 110/86 mmHg Medical History Medications: Omeprazole,,,,, Atorvastatin,,,,, Metoprolol Succinate,,,,, Citalopram,,,,, FOLIC ACID,,,,, XaRELTO,,,,, TAMSALOSIN,,,,, Finasteride,,,,, Quetiapine,,,,, Vit B1,,,,, Stress Test Details Test: LEXISCAN HR Resting HR: 60 bpm Max Heart Rate (APMHR): 162.160493 bpm Max HR Achieved: 88 bpm Target HR (85% APMHR): 137.199127 bpm % of APMHR: 54.32 Recovery HR: 88 bpm BP Resting BP: 110/86 mmHg Max BP: 119/73 mmHg Recovery BP: 119.0/73.0 mmHg ECG Clinical Exercise duration: 04:10 min Highest Stage Achieved: Exercise capacity: 1.0 METs Stress ECG Conclusion During lexiscan pt experinced no symptoms. No arrhythmias noted. <1mm ST depression. No ischemic changes. Non diagnostic, target HR not achieved. Test Summary REST . . . . . . . Sitting REST 03:37 . . 60 . 110/ 86 . . Stage 1 01:00 . . 68 . . . . Stage 2 01:00 . . 85 . 103/ 68 . . Stage 3 01:00 . . 80 . 107/ 68 . . Stage 4 01:00 . . 78 . 110/ 71 . . Stage 4 01:10 . . 75 . 110/ 71 . Stop exercise at 04:10 RECOVERY 01:00 . . 77 . . . . RECOVERY 01:32 . . 71 . 119/ 73 . . Electronically signed by : Chuy Mendenhall MD 06/15/2022 09:54:29
--- NOTE | 2022-06-14 06:50 | NM_ITS ---
APPROVED REPORT Exam: Nuclear Stress Test Indication: htn, hyperlipidemia, cp, sob Patient Location: Outpatient Stress Tech: Kailey Jenise LEIGH Tech:TOM Allan RT (R)(N)(M) Ht: 5 ft 10 in Wt: 200 lbs HR: 61 bpm BP: 110/86 mmHg BSA: 2.09 m2 TID: 1.37 BMI: 28.6 History: htn, hyperlipidemia, cp, sob Procedure: Patient received 0.4 mg of intravenous Lexiscan, resting heart rate 61 bpm, resting blood pressure 110/86 mmHg, with Lexiscan maximum heart rate achieved was 84 bpm which is % of the maximum predicted heart rate and blood pressure was 103/68 mmHg. With Lexiscan, patient denied any complaint of chest pain. Cardiac Stress and Resting SPECT Images: Cardiac Stress and Resting SPECT images were obtained using technetium 99m Myoview 32.4 mCi stress and 10.54 mCi at rest. Stress images reveal mildly decreased myocardial activity in the anterior wall with moderately decreased myocardial activity in the inferior wall Rest images reveal moderately decreased myocardial activity anterior wall with severely reduced myocardial activity Gated images calculated ejection fraction 63% with normal wall motion Conclusion: Reverse redistribution in both the anterior and inferior wall complement normal ejection fraction normal exertion Electronically signed by : Chuy Mendenhall MD 06/15/2022 13:43:11
== END ==
PROVIDERS: PCP Emergency Medicine; Referring Provider Emergency Medicine; Visit Provider Emergency Medicine
DX: R06.02 Shortness of breath (principal); R07.9 Chest pain, unspecified; I10 Essential (primary) hypertension; E78.5 Hyperlipidemia, unspecified
CPT/HCPCS: 78452; 93017; 93306; A9502; J2785

== ENCOUNTER 2023-02-23 18:41 | Outpatient (CLI) | payer BC, SELFPAY ==
[2023-02-23 18:10] LABS: Adenovirus,PCR Not Detected (NotDetected); Coronavirus 229E Not Detected (NotDetected); Coronavirus NL63 Not Detected (NotDetected); Coronavirus OC43 Not Detected (NotDetected); Coronovirus HKU1,PCR Not Detected (NotDetected); Human Metapneumovirus Not Detected (NotDetected); Influenza A, PCR Not Detected (NotDetected); Influenza AH1, 2009 Not Detected (NotDetected); Influenza AH1, PCR Not Detected (NotDetected); Influenza AH3,PCR Not Detected (NotDetected); Influenza B, PCR Not Detected (NotDetected); Parainfluenza 1, PCR Not Detected (NotDetected); Parainfluenza 2, PCR Not Detected (NotDetected); Parainfluenza 3, PCR Not Detected (NotDetected); Parainfluenza 4, PCR Not Detected (NotDetected); Respiratory Syncytial Virus Not Detected (NotDetected); Rhinovirus/Enterovirus Not Detected (NotDetected)
[2023-02-23 18:55] LABS: Basophils # 0.1 K/mm3 (0-0.2); Basophils % 0.8 % (0.1-2.0); Eosinophils # 0.2 K/mm3 (0.0-0.4); Eosinophils % 2.5 % (0.1-12.0); Hematocrit 50.2 % (42.0-52.0); Hemoglobin 17.3 g/dL (14.1-18.0); Lymphocytes # 1.9 K/mm3 (0.7-4.5); Lymphocytes % 26.5 % (10-50); Mean Corpuscular HGB Conc 34.5 g/dL (31.8-35.4); Mean Corpuscular Hemoglobin 33.8 pg (27.0-31.2); Mean Corpuscular Volume 98.1 fl (80-94); Mean Platelet Volume 10.7 fl (7.4-10.4); Monocytes # 0.5 K/mm3 (0.1-1.0); Neutrophils # 4.5 K/mm3 (1.8-7.8); Neutrophils % 63.2 % (37.0-80.0); Platelet Count 182 K/mm3 (142-424); Red Blood Count 5.12 M/mm3 (4.60-6.20); Red Cell Distribution Width 12.9 % (11.5-17.5); White Blood Count 7.1 K/mm3 (4.8-10.8)
[2023-02-23 19:22] LABS: Chloride 104 mmol/L (98-107)
[2023-02-23 19:23] LABS: Potassium 3.8 mmoL/L (3.5-5.1); Sodium 140 mmol/L (136-145)
[2023-02-23 19:25] LABS: Alanine Aminotransferase 38 U/L (12-78); Albumin Level 4.4 g/dl (3.5-5.0); Alkaline Phosphatase 91 U/L (38-126); Anion Gap 12.8 mEq/L (5-15); Aspartate Amino Transferase 39 U/L (17-59); Bilirubin,Total 1.2 mg/dl (0.2-1.3); Blood Urea Nitrogen 21 mg/dl (9-20); Carbon Dioxide 27 mmol/L (22.0-30.0); Estimated Glomerular Filt Rate 87 ml/min (>60); GFR (African American) 105 ML/MIN (>60); Globulin 4.2 g/dL (1.3-3.2); Total Protein,Serum 8.6 g/dl (6.3-8.2)
[2023-02-23 19:26] LABS: Chol/HDL Ratio 5.6 (1-3.5); Cholesterol 151 mg/dl (140-200); Glucose 127 mg/dl (74-100); HDL Cholesterol 27 mg/dl (40-60); Triglycerides 134 mg/dl (30-150); VLDL Cholesterol 27 mg/dL (0-40)
[2023-02-23 19:42] LABS: Direct LDL Cholesterol 100.25 mg/dL (100-129)
[2023-02-23 19:44] LABS: 25-OH Vitamin D, Total 76.1 ng/mL (30-100)
[2023-02-23 23:00] LABS: Coronavirus 19, PCR Detected (NotDetected)
[2023-02-24 11:40] LABS: Hemoglobin A1C 5.4 % (4.0-6.0)
== END 2023-02-23 23:59 ==
LOC: LAB.DROPOF 18:41
PROVIDERS: PCP Nurse Practitioner Family; Visit Provider Nurse Practitioner Family
DX: R06.02 Shortness of breath (principal); E78.5 Hyperlipidemia, unspecified; Z20.822 Contact with and (suspected) exposure to COVID-19; U07.1 COVID-19; E66.9 Obesity, unspecified; Z68.30 Body mass index [BMI] 30.0-30.9, adult
CPT/HCPCS: 80053; 80061; 82306; 83036; 84443; 85025; 87632; 87635

== ENCOUNTER 2023-05-03 11:00 | Outpatient (RCR) | payer BC, SELFPAY ==
--- NOTE | 2023-05-03 12:59 | HMH.OTOPEV ---
OT Inpatient Evaluation Rehab OT Outpatient Eval Start: 05/03/23 11:28 Freq: Status: Active Protocol: Document 05/03/23 11:29 MARGO (Rec: 05/03/23 12:59 [facility] [id number]) E-signed By Ezra Long, OT Outpatient Therapy Subjective History Subjective History Pt is a 58 year old male with a medical history of a TBI. He is accompanied by his mother who is his main caregiver and who he lives with. Mother reports concerns about patients right hand. She reports he has difficulty opening his hand. Therapist does observe significant arthritis at right MP joints of his index finger and middle finger with some slight ulnar drift. However, he also has significant arthritis at MP joints of index and middle finger on left hand along with slight ulnar drift ( consistent with degenerative changes). 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 However, pt has full range of motion at all digits in flexion, extension, abduction, and adduction on right hand. He is able to make a complete fist and straighten fingers back out. Pt also has full range of motion at right wrist and elbow. Pt's canvas baster jumpbasting strength is slightly declined compared to left: Right: 40 lbs Left: 50 lbs However, pt's strength and arom at right wrist and hand appear to be within functional limits. At this time, there is not a need for continued skilled therapy. Therapist did fit patient for swan neck deformity finger splints for right middle and ring finger at PIP joints. Pt and mother were educated on appropriate wear and care of splints; pt verbalized understanding. Outpatient Therapy Plan of Care Addendums This patient is a candidate for social No or vocational rehab? Patient/Guardian verbally acknowledges Yes understanding of treatment program and consents to further treatment? Patient/Guardian verbally acknowledges Yes understanding of diagnosis, prognosis and goals for treatment? Eval Complexity OT Charge 60011 - Low Complexity Shoulder/Elbow Eval Shoulder Objective Measurements Elbow Objective Measurements PHYSICIAN CERTIFICATION: I certify the specified therapy services for Mohit Gene Boy are required, authorized, and reviewed every 30 days.
== END 2023-05-03 12:00 | disposition home or self-care (01) ==
LOC: OT 11:00
PROVIDERS: Visit Provider Nurse Practitioner Family
DX: M25.541 Pain in joints of right hand (principal)
CPT/HCPCS: 97165

== ENCOUNTER 2024-03-22 15:40 | Outpatient (CLI) | payer MEDICAID, SELFPAY ==
[2024-03-22 18:50] LABS: Basophils # 0.1 K/mm3 (0-0.2); Basophils % 0.8 % (0.1-2.0); Eosinophils # 0.2 K/mm3 (0.0-0.4); Eosinophils % 2.7 % (0.1-12.0); Hematocrit 47.8 % (42.0-52.0); Hemoglobin 16.6 g/dL (14.1-18.0); Lymphocytes # 1.9 K/mm3 (0.7-4.5); Lymphocytes % 30.7 % (10-50); Mean Corpuscular HGB Conc 34.7 g/dL (31.8-35.4); Mean Corpuscular Volume 92.3 fl (80-94); Mean Platelet Volume 12.1 fl (7.4-10.4); Monocytes # 0.5 K/mm3 (0.1-1.0); Monocytes % 8.4 % (1.7-9.3); Neutrophils # 3.6 K/mm3 (1.8-7.8); Neutrophils % 57.2 % (37.0-80.0); Platelet Count 210 K/mm3 (142-424); Red Blood Count 5.18 M/mm3 (4.60-6.20); Red Cell Distribution Width 12.2 % (11.5-17.5); White Blood Count 6.3 K/mm3 (4.8-10.8)
[2024-03-22 19:58] LABS: Alanine Aminotransferase 23 U/L (12-78); Albumin Level 4.4 g/dl (3.5-5.0); Albumin/Globulin Ratio 1.2 (1.1-1.8); Alkaline Phosphatase 85 U/L (38-126); Anion Gap 15.8 mEq/L (5-15); Aspartate Amino Transferase 26 U/L (17-59); Bilirubin,Total 0.8 mg/dl (0.2-1.3); Blood Urea Nitrogen 22 mg/dl (9-20); Calcium 9.2 mg/dl (8.4-10.2); Carbon Dioxide 28 mmol/L (22.0-30.0); Chloride 100 mmol/L (98-107); Chol/HDL Ratio 5.3 (1-3.5); Cholesterol 133 mg/dl (140-200); Estimated Glomerular Filt Rate 86 ml/min (>60); GFR (African American) 105 ML/MIN (>60); Globulin 3.7 g/dL (1.3-3.2); Glucose 116 mg/dl (74-100); HDL Cholesterol 25 mg/dl (40-60); Potassium 3.8 mmoL/L (3.5-5.1); Sodium 140 mmol/L (136-145); Total Protein,Serum 8.1 g/dl (6.3-8.2); Triglycerides 166 mg/dl (30-150); VLDL Cholesterol 33 mg/dL (0-40)
[2024-03-22 20:10] LABS: 25-OH Vitamin D, Total 79.1 ng/mL (30-100)
[2024-03-22 20:21] LABS: Direct LDL Cholesterol 75.66 mg/dL (100-129)
[2024-03-22 20:31] LABS: Prostate Specific Ag Screen 0.1 ng/ml (0.0-4.0)
[2024-03-22 20:48] LABS: Vitamin B12 935 pg/mL (239-931)
[2024-03-22 20:57] LABS: Folate 4.76 ng/mL
== END 2024-03-22 23:59 | disposition home or self-care (01) ==
LOC: LAB.DROPOF 03-23 10:38
PROVIDERS: PCP Family Medicine; Visit Provider Family Medicine
DX: E53.8 Deficiency of other specified B group vitamins (principal); E78.5 Hyperlipidemia, unspecified; I10 Essential (primary) hypertension; N39.0 Urinary tract infection, site not specified; K74.60 Unspecified cirrhosis of liver; E55.9 Vitamin D deficiency, unspecified; R39.89 Other symptoms and signs involving the genitourinary system
CPT/HCPCS: 80053; 80061; 82306; 82607; 82746; 85025; 87086; G0103

== ENCOUNTER 2024-04-12 15:16 | Outpatient (CLI) | payer MEDICAID, SELFPAY | END 2024-04-12 23:59 | disposition home or self-care (01) | LOC: LAB.DROPOF 04-16 15:17 | PROVIDERS: PCP Family Medicine; Visit Provider Family Medicine | DX: R33.9 Retention of urine, unspecified (principal) | CPT/HCPCS: 87086 ==

== ENCOUNTER 2024-09-10 12:55 | Outpatient (CLI) | payer MEDICAID, SELFPAY ==
--- OUTSIDE RECORDS SUMMARY | 2024-08-23 13:30 | XMS_ITS | Encounter Summary ---
Author Organization [facility] Address [address] [place] [address] Care Team Providers Care Health/Safety Job Titles Name Role Phone Sathish Clayton MD Primary Care Provider [phone] Reason for Referral * Imaging (Routine) - Authorized Specialty Diagnoses / Procedures Referred By Chela sheldon Referred To Contact Cardiology Diagnoses Atrial flutter, unspecified type (CMS/HCC) Abnormal stress test Procedures Echo, Adult Transthoracic Complete Anu Méndez APRN [address] [place] [address] Phone: tel: fax: [facility] () [address] [place] [id number] Phone: tel: fax: Referral ID Status Reason Start Date Expiration Date Visits Requested Visits Authorized [id number] Authorized Perform Procedure 08/23/2024 02/22/2026 1 1 * Consultation (Routine) - Authorized Specialty Diagnoses / Procedures Referred By Chela sheldon Referred To Contact Diagnoses Atrial flutter, unspecified type (CMS/HCC) Deep vein thrombosis (DVT) of left posterior tibial vein Anu Méndez APRN [address] [place] [address] Phone: tel: fax: Referral ID Status Reason Start Date Expiration Date V isits Requested Visits Authorized [id number] Authorized 08/23/2024 02/22/2026 1 1 * Cardiac Stress Testing (Routine) - Closed Specialty Diagnoses / Procedures Referred By Contac t Referred To Contact Cardiology Diagnoses Atrial flutter, unspecified type (CMS/HCC) Procedures Adult Patch Monitor - 14 Day Anu Méndez APRN [address] [place] [address] Phone: tel: fax: Referral ID Status Reason Start Date Expiration Date Visits Re quested Visits Authorized [id number] Closed 08/23/2024 02/22/2026 1 1 * Genetic Testing (Routine) - Denied Specialty Diagnoses / Procedures Referred By Budac t Referred To Contact Lab Diagnoses Deep vein thrombosis (DVT) of left posterior tibial vein Procedures Factor V Leiden and Prothrombin Mutation by PCR Anu Méndez APRN [address] [place] [address] Phone: tel: fax: Referral ID Status Reason Start Date Expiration Date Visits Re quested Visits Authorized [id number] Denied 08/23/2024 02/22/2026 1 0 Reason for Visit * Genetic Testing (Routine) - Denied Specialty Diagnoses / Procedures [facility] Referred To Contact Lab Diagnoses Deep vein thrombosis (DVT) of left posterior tibial vein Procedures Factor V Leiden and Prothrombin Mutation by PCR Anu Méndez APRN [address] [place] [address] Phone: tel: fax: Referral ID Status Reason Start Date Expiration Date Visits Re quested Visits Authorized [id number] Denied 08/23/2024 02/22/2026 1 0 Encounter Details Date Type Department Care Team ([facility] st Contact Info) Description 08/23/2024 1:30 PM EDT Office Visit [facility] [place] [address], [address] [place] [address] Anu Méndez APRN [address] [place] [address] Deep vein thrombosis (DVT) of left posterior tibial vein (Primary Dx); Atrial flutter, unspecified type (CMS/HCC); Abnormal stress test Social History Tobacco Use Types Packs/Day Years Used Date Smoking Tobacco: Never Smokeless Tobacco: Never Tobacco Cessation:Counseling Given: Not Answered Alcohol Use Standard Drinks/Week Comments Never 0 (1 standard drink = 0.6 oz pur e alcohol) PHQ-2 Answer Date Recorded Patient Health Questionnaire-2 Score 0 08/23/2024 PHQ-9 Answer Date Recorded Patient Health Questionnaire-9 Score 0 08/23/2024 Sex and Gender Information Value Date Recorded Sex Assigned at Not on file Legal Sex Male 6:18 PM EDT Gender Identity Not on file Sexual Orientation Not on file documented as of this encounter Last Filed Vital Signs Vital Sign Reading Time Taken Comments Blood Pressure 121/77 08/23/2024 1:24 PM EDT Pulse 68 08/23/2024 1:24 PM EDT Temperature - - Respiratory Rate - - Oxygen Saturation 92% 08/23/2024 1:24 PM EDT Inhaled Oxygen Concentration - - Weight 87 kg (191 lb 12.8 oz) 08/23/2024 1:24 PM EDT Height 177.8 cm (5' 10 ) 08/23/2024 1:24 PM EDT Body Mass Index 27.52 08/23/2024 1:24 PM EDT documented in this encounter Functional Status * Over the past 2 weeks, how often have you been bothered by any of the following problems? Question Answer Date of Assessment Author Little interest or pleasure in doing things Not at all 08/23/2024 1:27 PM EDT Halie Mcdonough Feeling down, depressed, or hopeless Not at all 08/23/2024 1:27 PM EDT Halie Mcdonough Patient Health Questionnaire -2 Score 0 08/23/2024 1:27 PM EDT Halie Mcdonough * Question Answer Date of Assessment Author Trouble falling or staying a sleep, or sleeping too much Not at all 08/23/2024 1:27 PM EDT Halie Mcdonough Feeling tired or having raquel le energy Not at all 08/23/2024 1:27 PM EDHalie Blas Poor appetite or overeating Not at all 08/23/2024 1: 27 PM Halie Bladnon Feeling bad about yourself - or that you are a failure or have let yourself or your family down Not at all 08/23/2024 1:27 PM Virginia Blandon Trouble concentrating on thi ngs, such as reading the newspaper or watching television Not at all 08/23/2024 1:27 PM Halie Blandon Moving or speaking so slowly that other people could have noticed? Or the opposite - being so fidgety or restless that you have been moving around a lot more than usual. Not at all 08/23/2024 1:27 PM Halie Blandon Thoughts that you would be b dwayne off or hurting yourself in some way Not at all 08/23/2024 1:27 PM Halie Blandon Patient Health Questionnaire -9 Score 0 08/23/2024 1:27 PM Halie Blandon * If you checked off any problems on this questionnaire so far, Question Answer Date of Assessment Author How difficult have these problems made it for you to do your work, take care of things at home, or get along with other people? Not difficult at all 08/23/2024 1:27 PM Halie Blandon documented as of this encounter Miscellaneous Notes * Progress Notes - Anu Méndez, DENTAL PROSTHETIST - 08/23/2024 1:30 PM EDT Images from the original note were not included. Cardiology Clinic Note Date of Visit 08/23/24 Patient Mohit Brunson [address] [place] [address] PCP Sathish Clayton MD (Inactive) SUBJECTIVE History of Present Illness Today I saw Mohit Brunson, a 59 y.o. male at the [facility] for follow up. PMH of: TBI (2019), history of LLE DVT, isolated episode of paroxysmal atrial flutter ISO ruptured appendix and HLD. Mr. Brunson has been feeling at baseline since last visit. He attends therapy twice weekly and rides the exercise bike there. He denies chest pain or dyspnea when doing this but admits that he gets winded at times. Patient denies subjective palpitations or tachycardias, though his mother is not sure that he would recognize these if he had them. He recently saw his PCP in [place] to try to obtain clearance before getting teeth extracted and she says that after they reviewed his records and echo from 2020 with cardiology, they recommended that he have a cardiac cath. He has not had any cardiac testing since 2020. Patient denies dizziness/lightheadedness or syncope. 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 He was started on Xarelto for this in June 2020 andhas continued this at the advice of his PCP since that time. As this was apparent at the time of his hospitalization, this was presumably an unprovoked DVT. Patient's mother developed recurrent bloodclots while she was undergoing cancer treatment and was treated with warfarin. She's continued to take this and INRs are monitored by her PCP. Per patient, her oncologist has advised her that she canstop it, but recommended that PCP stop it since he's been prescribing it and monitoring INR. She says that her PCP feels that the oncologist should discontinue it as he prescribed it initially. Relevant history from [facility] chart review: [facility] admission for ruptured appendix 06/2020: On POD 2, he developed significant tachycardia that was determined to be atrial flutter. Imaging performed during this hospitalization did not reveal acute DVT, but did demonstrate a probable DVT in the left posterior tibial vein, thus Xarelto was started. Problem List[1] Past Medical History Past Medical History[2] Past Surgical History Surgical History[3] Family History Family History[4] Social History Social History[5] Current Medications Current Medications[6] Allergies Allergies[7] The following portions of the chart were reviewed this encounter and updated as appropriate: Tobacco Allergies Meds Problems Med Hx Surg Hx Fam Hx Review of Systems 14 Point ROS reviewed and is otherwise negative except as per HPI. OBJECTIVE Vitals Visit Vitals BP 121/77 (BP Location: Right arm, Patient Position: Sitting, BP Cuff Size: Adult) Pulse 68 Ht 1.778 m (5' 10 ) Wt 87 kg (191 lb 12.8 oz) SpO2 92% BMI 27.52 kg/m?? Physical Exam Physical Exam Vitals reviewed. Constitutional: General: He is not in acute distress. HENT: Head: Normocephalic. Neck: Vascular: No carotid bruit. Cardiovascular: Rate and Rhythm: Normal rate and regular rhythm. Pulses: Normal pulses. Heart sounds: S1 normal and S2 normal. No murmur heard. No gallop. Pulmonary: Effort: Pulmonary effort is normal. No respiratory distress. Breath sounds: Normal breath sounds. Musculoskeletal: Right lower leg: No edema. Left lower leg: No edema. Skin: General: Skin is warm and dry. Neurological: Mental Status: He is alert and oriented to person, place, and time. Psychiatric: Mood and Affect: Mood normal. Behavior: Behavior normal. Diagnostics No echocardiogram results found for the past 12 months No nuclear medicine results found for the past 12 months @CTA@ Lab Review Lab Results Component Value Date/Time WBC 7.45 04/25/2018 1557 RBC 4.23 (L) 04/25/2018 1557 HGB 13.9 04/25/2018 1557 HCT 40.7 04/25/2018 1557 Lab Results Component Value Date/Time GLUCOSE 116 (H) 04/25/2018 1557 BUN 33 (H) 04/25/2018 1557 CREATININE 0.75 (L) 04/25/2018 1557 NA 144 04/25/2018 1557 K 3.7 04/25/2018 1557 CL 106 04/25/2018 1557 Lab Results Component Value Date/Time AST 31 04/23/2018 1114 ALT 42 (H) 04/23/2018 1114 ALKPHOS 79 04/23/2018 1114 No results found for: CHOL , LDL , LDLCALC , HDL , TRIG No results found for: HGBA1C No results found for: TSH , FREET4 The ASCVD Risk score (Canton DK, et al., 2019) failed to calculate for the following reasons: Cannot find a previous HDL lab Cannot find a previous total cholesterol lab ASSESSMENT AND PLAN Visit Diagnoses and Orders 1. Deep vein thrombosis (DVT) of left posterior tibial vein Factor V Leiden and Prothrombin Mutation by PCR, Anticardiolipin, Protein C activity, Protein S activity, Lupus anticoagulant, AntithrombinIII, Follow Up Cardiology, Factor V Leiden and Prothrombin Mutation by PCR, Anticardiolipin, Protein C activity, Protein S activity, Lupus anticoagulant, Antithrombin III 2. Atrial flutter, unspecified type (CMS/HCC) ECG Adult (Now - Performed in your clinic), Adult Patch Monitor - 14 Day, Follow Up Cardiology Discussion Summary History of DVT - Has been on Xarelto since 06/2020 following isolated episode of AFL and evidence of chronic LLE DVT that was presumably unprovoked - No known history of familial clotting disorder - No clinical evidence of DVT on exam - To determine need for ongoing AC, will obtain labs to exclude hypercoagulability. If negative, would favor stopping AC as long as no arrhythmia detected on Holter monitor Abnormal stress test - 06/2022: As report indicates multiple defects that are worse at rest than with stress, suspect artifact - Patient denies chest pain or progressive dyspnea with PT and activities around house - Reassured pt/mother of normal 06/2020 echo with normal LVEF and wall motion - ECG today: SR with 1st degree AVB, no ischemic changes - Will repeat echo to ensure no change in EF or wall motion HLD - Continues on atorvastatin 10mg daily - Managed by PCP AFL - Isolated episode in setting of acute illness (hospitalization for ruptured appendix) - CHADS-VASc 0 - Currently on Xarelto for DVT; obtaining labs as above to exclude hypercoagulability - If testing negative, will likely discontinue AC Follow up in 1 year. Claudia Méndez APRN I personally spent a total of 45 minutes on this encounter. This time includes face to face with patient, counseling, discussion and/or coordination of care, and documentation. [1] Patient Active Problem List Diagnosis History of DVT (deep vein thrombosis) [2] History reviewed. No pertinent past medical history. [3] History reviewed. No pertinent surgical history. [4] Family History Problem Relation Name Age of Onset Cancer Other [5] Social History Tobacco Use Smoking status: Never Smokeless tobacco: Never Substance Use Topics Alcohol use: Never Drug use: Yes Frequency: 3.0 times per week Types: Marijuana Comment: Weekly, smoke [6] Current Outpatient Medications: atorvastatin (Lipitor) 10 MG tablet, , Disp: , Rfl: citalopram (CeleXA) 10 MG tablet, , Disp: , Rfl: finasteride (Proscar) 5 MG tablet, Take 1 tablet (5 mg) by mouth 1 (one) time each day., Disp: , Rfl: folic acid (Folvite) 1 MG tablet, , Disp: , Rfl: metoprolol succinate XL (Toprol-XL) 25 MG 24 hr tablet, , Disp: , Rfl: omeprazole (PriLOSEC) [address] capsule, Take 1 capsule (20 mg) by mouth 1 (one) time each day. Do not crush or chew., Disp: , Rfl: QUEtiapine (SEROquel) 100 MG tablet, , Disp: , Rfl: tamsulosin (Flomax) 0.4 MG 24 hr capsule, , Disp: , Rfl: thiamine (Vitamin B-1) 100 MG tablet, , Disp: , Rfl: Vitamin D3 1.25 MG (56317 UT) capsule, Take 1 capsule (50,000 Units) by mouth 1 (one) time per week., Disp: , Rfl: Xarelto 20 MG tablet, , Disp: , Rfl: [7] No Known Allergies documented in this encounter Plan of Treatment Upcoming Encounters Date Type Department Care Team (Late st Contact Info) Description 08/29/2025 1:30 PM EDT Office Visit [facility] [place] [address], [address] [place] [address] Anu Méndez APRN [address] [place] [address] Pending Results Name Type Priority Associated Diagnoses Date /Time Adult Patch Monitor - 14 Day Cardiac Services Routine Atrial flutter, unspecified type (CMS/HCC) 08/23/2024 2:20 PM EDT Scheduled Orders Name Type Priority Associated Diagnoses Order Schedule Adult Patch Monitor - 14 Day Cardiac Services Routine Atrial flutter, unspecified type (CMS/HCC) 1 Occurrences starting 08/23/2024 until 02/24/2026 Echo, Adult Transthoracic Complete Echocardiography Routine Atrial flutter, unspecified type (CMS/HCC) Abnormal stress test Expected: 08/23/2024 (Approximate), Expires: 02/24/2026 Scheduled Referrals Name Type Priority Associated Diagnoses Orde r Schedule Follow Up Cardiology Outpatient Referral Routine Atrial flutter, unspecified type (CMS/HCC) Deep vein thrombosis (DVT) of left posterior tibial vein Expected: 08/23/2025, Expires: 02/23/2026 documented as of this encounter Procedures Procedure Name Priority Date/Time Associated Diagnosis Comments FACTOR V LEIDEN AND PROTHROMBIN MUTATION BY PCR Routine 08/23/2024 2:04 PM EDT Deep vein thrombosis (DVT) of left posterior tibial vein ANTICARDIOLIPIN Routine 08/23/2024 2:04 PM EDT Deep vein thrombosis (DVT) of left posterior tibial vein STACLOT LA20 Routine 08/23/2024 2:04 PM EDT Deep vein thrombosis (DVT) of left posterior tibial vein PROTEIN S ACTIVITY Routine 08/23/2024 2: 04 PM EDT Deep vein thrombosis (DVT) of left posterior tibial vein PROTEIN C ACTIVITY Routine 08/23/2024 2: 04 PM EDT Deep vein thrombosis (DVT) of left posterior tibial vein LUPUS ANTICOAGULANT PROFILE Routine 08/23/2024 2:04 PM EDT Deep vein thrombosis (DVT) of left posterior tibial vein DRVVT Routine 08/23/2024 2:04 PM EDT Deep vein thrombosis (DVT) of left posterior tibial vein ANTITHROMBIN III Routine 08/23/2024 2:04 PM EDT Deep vein thrombosis (DVT) of left posterior tibial vein ECG ADULT Routine 08/23/2024 1:48 PM EDT Atrial flutter, unspecified type (CMS/HCC) documented in this encounter Results * Staclot LA20 (08/23/2024 2:04 PM EDT) Blood Venous blood specimen / Unknown Venipuncture / Unknown 08/23/2024 2:04 PM EDT 08/23/2024 2:04 PM EDT us Anu Méndez DENTAL PROSTHETIST LAB BLOOD ORDERABLES Final Re sult Performing Organization Address [facility] Co de Phone Number [facility] [address] [place] [address] * DRVVT (08/23/2024 2:04 PM EDT) Blood Venous blood specimen / Unknown Venipuncture / Unknown 08/23/2024 2:04 PM EDT 08/23/2024 2:04 PM EDT Anu Méndez DENTAL PROSTHETIST LAB BLOOD ORDERABLES Final Re sult Performing Organization Address [facility] Co de Phone Number [facility] [address] [place] [address] * Antithrombin III (08/23/2024 2:04 PM EDT) Pathologist [facility] Antithrombin III 94 90 - 133 % LAB COAGULATION METHOD 08/23/2024 5:56 PM EDT [facility] Blood Venous blood specimen / Unknown Venipuncture / Unknown 08/23/2024 2:04 PM EDT 08/23/2024 2:04 PM EDT Anu Méndez DENTAL PROSTHETIST LAB BLOOD ORDERABLES Final Re sult Performing Organization Address [facility] de Phone Number [facility] [address] [place] [address] * (ABNORMAL) Lupus anticoagulant (08/23/2024 2:04 PM EDT) Lupus Anticoagulant Result Lupus anticoagulant (LA) detected by dRVVT only. Testing is negative by LA-sensitive aPTT assay. Recommend repeat testing at or greater than 12 weeks from date of this collection to confirm lupus anticoagulant is persistent. 08/24/2024 2:59 PM EDT [facility] aPTT Lupus Anticoagulant Sensitive 52.1(H) <=41.0 sec LAB COAGULATION METHOD 08/24/2024 2:59 PM EDT [facility] Staclot without Phospholipid 51.5 sec LAB COAGULATION METHOD 08/24/2024 2:59 PM EDT [facility] Staclot with Phospholipid 49.3 sec LAB COAGULATION METHOD 08/24/2024 2:59 PM EDT [facility] Staclot Delta 2.2 <8.0 sec LAB COAGULATION METHOD 08/24/2024 2:59 PM EDT [facility] DRVVT Screen 81.4 sec LAB COAGULATION METHOD 08/24/2024 2:59 PM EDT [facility] DRVVT Screen Ratio 10.18(H) <1.20 LAB COAGULATION METHOD 08/24/2024 2:59 PM EDT [facility] DRVVT Confirmation 57.8 sec LAB COAGULATION METHOD 08/24/2024 2:59 PM EDT [facility] DRVVT Confirmation Ratio 1.62 LAB COAGULATION METHOD 08/24/2024 2:59 PM EDT [facility] DRVVT Screen Ratio/Confirmati on Ratio 6.28(H) <1.20 LAB COAGULATION METHOD 08/24/2024 2:59 PM EDT [facility] Blood Venous blood specimen / Unknown Venipuncture / Unknown 08/23/2024 2:04 PM EDT 08/23/2024 2:04 PM EDT us Anu Méndez APRN LAB BLOOD ORDERABLES Final Re sult [facility] [address] [place] [address] * Protein S activity (08/23/2024 2:04 PM EDT) Protein S Activity 61.0 57 - 143 % LAB COAGULATION METHOD 08/29/2024 4:05 AM EDT [facility] Blood Venous blood specimen / Unknown Venipuncture / Unknown 08/23/2024 2:04 PM EDT 08/23/2024 2:04 PM EDT Narrative [facility] - 08/29/2024 4:05 AM EDT Coagulation proteins produced in liver, especially the vitamin K dependent ones (FII, FVII, FIX, FX, Protein C and Protein S) are normally decreased in newborns, increasing to adult levels over the first six months. Those produced in endothelium (FVIII, vWF) approximate adult levels throughout development. us Anu Méndez APRN LAB BLOOD ORDERABLES Final Re sult Performing Organization Address [facility] Co de Phone Number [facility] [address] [place] [address] * Protein C activity (08/23/2024 2:04 PM EDT) [facility] Protein C 104 83 - 168 % LAB COAGULATION METHOD 08/29/2024 4:05 AM EDT [facility] Blood Venous blood specimen / Unknown Venipuncture / Unknown 08/23/2024 2:04 PM EDT 08/23/2024 2:04 PM EDT Narrative [facility] - 08/29/2024 4:05 AM EDT Coagulation proteins produced in liver, especially the vitamin K dependent ones (FII, FVII, FIX, FX, Protein C and Protein S) are normally decreased in newborns, increasing to adult levels over the first six months. Those produced in endothelium (FVIII, vWF) approximate adult levels throughout development. Low levels of protein C are expected in liver disease and during coumadin therapy. Anu Méndez APRN LAB BLOOD ORDERABLES Final Re sult Performing Organization Address [facility] Co de Phone Number [facility] [address] [place] [address] * Anticardiolipin (08/23/2024 2:04 PM EDT) [facility] IgG Anticardiolipin <1.60 <20.00 GPL Units/mL 08/23/2024 8:21 PM EDT [facility] Anticardiolipin IgG Interpretation Negative Negative 08/23/2024 8:21 PM EDT [facility] IgM Anticardiolipin 2.70 <20.00 MPL Units/mL 08/23/2024 8:21 PM EDT [facility] Anticardiolipin IgM Interpretation Negative Negative 08/23/2024 8:21 PM EDT [facility] Blood Venous blood specimen / Unknown Venipuncture / Unknown 08/23/2024 2:04 PM EDT 08/23/2024 2:04 PM EDT Anu Méndez APRN LAB BLOOD ORDERABLES Final Re sult [facility] [address] [place] [address] * Factor V Leiden and Prothrombin Mutation by PCR (08/23/2024 2:04 PM EDT) Interpretation F5 c.1601G>A (formerly known as Factor V Leiden): Negative F2 c.*97G>A (formerly known as Prothrombin [id number]): Negative This patient is unlikely to have an increased risk of venous thrombosis related to these two genetic variants. Venous thrombosis is a relatively common disorder and the genetic causes are largely unknown. These results are unlikely to significantly reduce the venous thrombosis risk derived from clinical and family history. Variant Description: 1. Coagulation factor V gene (F5): [id number], chr1: [id number]>T (hg38), c.1601G>A (NM_000130.4), p.Bwz044Czb (NP_000121.2), 2. Coagulation factor II (F2): [id number], chr11: g.11356377I>A (hg38), c.*97G>A(NM_[id number] .[id number]) 08/30/2024 3:07 PM EDT [facility] Methodology Polymerase chain reaction (PCR) was used to amplify the target regions of the F5 gene and the F2 gene, followed by allelic discrimination with Taqman probes. This test is designed for the detection of the two variants listed above, other variants will not be detected. 08/30/2024 3:07 PM EDT [facility] References 1. Carlito MANDUJANO. Factor V Leiden Thrombophilia. 2009Apr 15. Tessie 2. Carlito MANDUJANO. Prothrombin-Relate d Thrombophilia. 2013Sep 20 Tessie 08/30/2024 3:07 PM EDT [facility] Disclaimer This test was developed and its performance characteristics determined by the Clinical [facility] Pathology Laboratory at the [facility]. It has not been cleared or approved by the U.S. Food and Drug Administration. This test does not require FDA approval. This test is used for clinical purposes. It should not be regarded as investigational or for research. This laboratory is certified under the Clinical laboratory Improvement Amendments of 1988 (CLIA-88) as qualified to perform high complexity clinical laboratory testing. 08/30/2024 3:07 PM EDT [facility] Blood Venous blood specimen / Unknown Venipuncture / Unknown 08/23/2024 2:04 PM EDT 08/23/2024 2:04 PM EDT Anu Angie Dev [facility] LAB MOLECULAR DIAGNOSTICS ORD ERABLES Final Result Performing Organization Address City/[facility]/ZIP Co de Phone Number [facility] [address] [place] [address], * ECG Adult (Now - Performed in your clinic) (08/23/2024 1:48 PM EDT) EKG DIAGNOSIS CLASS Abnormal MUSE ECG Ventricular Rate 63 BPM MUSE ECG Atrial Rate 63 BPM MUSE ECG [place] Interval 238 ms MUSE ECG QRSD Interval 82 ms MUSE ECG QT Interval 420 ms MUSE ECG QTC Interval 429 ms MUSE ECG P [place] 38 degrees MUSE ECG R [place] -43 degrees MUSE ECG T Wave [place] 27 degrees MUSE ECG Diagnosis Sinus rhythm with 1st degree AV block MUSE ECG Diagnosis Left axis deviation MUSE ECG Diagnosis Inferior infarct , age undetermined MUSE ECG Diagnosis Abnormal ECG MUSE ECG Diagnosis MUSE ECG Diagnosis Confirmed by Inocente Vo ([id number]) on 08/23/2024 3:10:06 PM MUSE ECG 08/23/2024 1:48 PM EDT 08/23/2024 3:10 PM EDT Anuradha Méndez DENTAL PROSTHETIST ECG ORDERABLES Final Result Performing Organization Address City/[facility] Co de Phone Number MUSE ECG documented in this encounter Visit Diagnoses Diagnosis Deep vein thrombosis (DVT) of left posterior tibial vein- Primary Atrial flutter, unspecified type (CMS/HCC) Abnormal stress test Other nonspecific abnormal cardiovascular system function study documented in this encounter Additional Health Concerns Assessment Noted Time PHQ-9 Depression Total Score: 0 08/24/19 25 1:27 PM EDT A fall risk assessment has been complete d for the patient 08/23/2024 1:26 PM EDT A Body Mass Index follow-up plan has been documented for the patient 08/23/2024 2:29 PM EDT documented as of this encounter Care Teams Health/Safety Job Titles Relationship Specialty Start Date End Date Sathish Clayton MD [address] [place] [address] PCP - General 06/20/20 documented as of this encounter
--- OUTSIDE RECORDS SUMMARY | 2024-08-23 14:00 | XMS_ITS | Encounter Summary ---
Author Organization [facility] Address [address] [place], [place] [id number] Care Team Providers Care Geographic Information Systems Analyst Name Role Phone Sathish Clayton MD Primary Care Provider [phone] Reason for Referral * Cardiac Stress Testing (Routine) - Closed Specialty Diagnoses / Procedures Referred By Chela sheldon Referred To Contact Cardiology Diagnoses Atrial flutter, unspecified type (CMS/HCC) Procedures Adult Patch Monitor - 14 Day Anu Méndez, FINANCIAL REPORTING ADVISOR [address] [place] [address] Phone: tel: fax: Referral ID Status Reason Start Date Expiration Date Visits Re quested Visits Authorized [id number] Closed 08/23/2024 02/22/2026 1 1 Reason for Visit * Cardiac Stress Testing (Routine) - Closed Specialty Diagnoses / Procedures Referred By Chela sheldon Referred To Contact Cardiology Diagnoses Atrial flutter, unspecified type (CMS/HCC) Procedures Adult Patch Monitor - 14 Day Anu Méndez, FINANCIAL REPORTING ADVISOR [address] [place] [address] Phone: tel: fax: Referral ID Status Reason Start Date Expiration Date Visits Re quested Visits Authorized [id number] Closed 08/23/2024 02/22/2026 1 1 Encounter Details Date Type Department Care Team (Latest Contact Info) Description 08/23/2024 2:00 PM EDT - 08/23/2024 11:59 PM EDT Hospital Encounter Medical Office Building Cardiac Diagnostic Testing Medical Office Building Echo Lab [address], [address] [place] [address] Atrial flutter, unspecified type ([facility]) Discharge Disposition: Home or Self Care Social History Tobacco Use Types Packs/Day Years Used Date Smoking Tobacco: Never Smokeless Tobacco: Never Alcohol Use Standard Drinks/Week Comments Never 0 [...] on file documented as of this encounter Functional Status * Over the past 2 weeks, how often have you been bothered by any of the following problems? Question Answer Date of Assessment Author Little interest or pleasure in doing things Not at all 08/23/2024 1:27 PM KOFIT Halie Mcdonough Feeling down, depressed, or hopeless Not at all 08/23/2024 1:27 PM Halie Blandon Patient Health Questionnaire -2 Score 0 08/23/2024 1:27 PM EDT Halie Mcdonough * Question Answer Date of Assessment Author Trouble falling or staying a sleep, or sleeping too much Not at all 08/23/2024 1:27 PM Halie Blandon Feeling tired or having raquel le energy Not at all 08/23/2024 1:27 PM Halie Blandon Poor appetite or overeating Not at all 08/23/2024 1: 27 PM Halie Blandon Feeling bad about yourself - or that [...] usual. Not at all 08/23/2024 1:27 PM EDT Mcdonough, Halie T Thoughts that you would be b dwayne off or hurting yourself in some way Not at all 08/23/2024 1:27 PM EDT Halie Mcdonough Patient Health Questionnaire -9 Score 0 08/23/2024 1:27 PM EDT Halie Mcdonough * If you checked off any problems on this questionnaire so far, Question Answer Date of Assessment Author How difficult have these problems made it for you to do your work, take care of things at home, or get along with other people? Not difficult at all 08/23/2024 1:27 PM EDT Halie Mcdonough documented as of this encounter Medications at Time of Discharge atorvastatin (Lipitor) 10 MG tablet 08/02/2022 citalopram (CeleXA) 10 MG tablet 09/01/2022 finasteride (Proscar) 5 MG tablet Take 1 tablet (5 mg) by mouth 1 (one) time each day. 09/01/2022 folic acid (Folvite) 1 MG tablet 09/01/2022 metoprolol succinate XL (Toprol-XL) 25 MG 24 hr tablet 09/01/2022 omeprazole (PriLOSEC) [address] capsule Take 1 capsule (20 mg) by mouth 1 (one) time each day. Do not crush or chew. QUEtiapine (SEROquel) 100 MG tablet 09/01/2022 tamsulosin (Flomax) 0.4 MG 24 hr capsule 09/01/2022 thiamine (Vitamin B-1) 100 MG tablet 09/01/2022 Vitamin D3 1.25 MG (71651 UT) capsule Take 1 capsule (50,000 Units) by mouth 1 (one) time per week. 09/01/2022 Xarelto 20 MG tablet 09/01/2022 documented as of this encounter Plan of Treatment Upcoming Encounters Date Type Department Care Team (Late st Contact Info) Description 08/29/2025 1:30 PM EDT Office Visit [facility] [place] [address], [address] [place] [address] Anu Méndez, FINANCIAL REPORTING ADVISOR [address] [place] [address] Pending Results Name Type Priority Associated Diagnoses Date /Time Adult Patch Monitor - 14 Day Cardiac Services Routine Atrial flutter, unspecified type (CMS/HCC) 08/23/2024 2:20 PM EDT Scheduled Orders Name Type Priority Associated Diagnoses Orde r Schedule Adult Patch Monitor - 14 Day Cardiac Services Routine Atrial flutter, unspecified type (CMS/HCC) Once for 1 Occurrences starting 08/24/2024 until 08/24/2024 documented as of this encounter Visit Diagnoses Diagnosis Atrial flutter, unspecified type (CMS/HCC) documented in this encounter Additional Health Concerns Assessment Noted Time PHQ-9 Depression Total Score: 0 08/24/19 25 1:27 PM EDT A fall risk assessment has been complete d for the patient 08/23/2024 1:26 PM EDT A Body Mass Index follow-up plan has been documented for the patient 08/23/2024 2:29 PM EDT documented as of this encounter Care Teams Geographic Information Systems Analyst Relationship Specialty Start Date End Date Sathish Clayton MD [address] [place] [address] PCP - General 06/20/20 documented as of this encounter
--- NOTE | 2024-09-10 | CA_ITS ---
APPROVED REPORT EXAM: Comprehensive 2D, Doppler, and color-flow Echocardiogram Commissary Steward: Shadia Conn, RT(R) Ht: 5 ft 10 in Wt: 190lbs BSA: 2.04 BP: 118/72 mmHg Indications: Aflutter, brain injury 2D Dimensions Left Atrium 3.83 cm M: 3.0 - 4.0 EF AP4 48.30 % LVOT 2.02 cm (M/F) 1.5-2.5 GL Strain -13.8 % M-Mode Dimensions RVDd 2.88 cm (0.9-2.6) LVDd 4.33 cm (3.5-5.7) Ao Diam 3.15 cm (2.0-3.7) LVDs 3.35 cm (3.5-5.7) IVSd 0.64 cm (0.6-1.1) PWd 0.72 cm (0.6-1.1) EF (Teich) 45.70% FS 22.60% EDV (Teich) 84.40 mL ESV (Teich) 45.80 mL LV Diastology E Decel Time 172 (160-240 msec) E/A Ratio 1.2 MED E' 6.9 (>= 7 cm/sec) E'/MED E' Ratio 13.07 (<= 14) LAT E' 9.2 (>= 10 cm/sec) E/LAT E' Ratio 9.80 (<= 14) Mitral Valve MV E Max Rolf. 90.0 (40-130 cm/s) MV A Velocity 78.0 (40-130 cm/s) E/A Ratio 1.15 MV Decel. Time 172 (160-240 ms) Left Ventricle The left ventricle is normal size. Left ventricular systolic function is normal. The left ventricular ejection fraction is within the normal range. There is increased left ventricular wall thickness. There is normal LV segmental wall motion. The left ventricular diastolic function is normal. LVEF is 55% Right Ventricle The right ventricle is normal size. The right ventricular systolic function is normal. Atria The left atrium size is normal. The right atrium size is normal. There is no color Doppler evidence of interatrial shunt. Aortic Valve The aortic valve opens well. There is no hemodynamically significant aortic valvular stenosis. No aortic regurgitation is present. Mitral Valve The mitral valve is normal in structure. No evidence of mitral valve stenosis. Mild mitral regurgitation is present. Tricuspid Valve The tricuspid valve leaflets are thin and pliable. Trace tricuspid regurgitation. There is insufficient TR jet to estimate RVSP. Pulmonic Valve The pulmonary valve is grossly normal in structure. Mild pulmonic valve regurgitation is present. Great Vessels The aortic root is normal in size. IVC is normal in size and collapses >50% with inspiration. Pericardium There is no pericardial effusion. Other Information Study Quality: Fair Conclusion Normal biventricular systolic function. Mild MR, mild IN. Electronically signed by : Viviana Schulte MD 09/11/2024 02:10:21
--- OUTSIDE RECORDS SUMMARY | 2024-09-10 13:01 | XMS_ITS | Encounter Summary ---
Author Organization [facility] Address [address] [id number] Care Team Providers Care Generating Station Mechanic Name Role Phone Sathish [place] MD Primary Care Provider [phone] Encounter Details Date Type Department Care Team (Late st Contact Info) Description 09/05/2024 Results Follow-Up [facility] [place] [address] [place] [id number] Anu Méndez, DEVON [address] [place] [address] Social History Tobacco Use Types Packs/Day Years [...] on file documented as of this encounter Miscellaneous Notes * Result Encounter Note - Anu Méndez, DEVON - 09/05/2024 12:58 PM EDT Dorothy- Can you call Mr. Brunson's mom and let her know that most of his testing to evaluate for abnormal blood clotting is normal. One test is abnormal and should be repeated in 3 months. If it would beeasier to have it drawn locally, ok to order (lupus anticoagulant). Once we have all the results, will make a determination on whether he needs to stay on Xarelto. Thanks, Claudia documented in this encounter Plan of Treatment Upcoming Encounters Date Type Department Care Team (Late st Contact Info) Description 08/29/2025 1:30 PM EDT Office Visit [facility] [place] [address] [facility], [address] [place] [address] Anu Méndez APRN [address] [place] [address] documented as of this encounter Visit Diagnoses Not on filedocumented in this encounter Additional Health Concerns Assessment Noted Time PHQ-9 Depression Total Score: 0 08/24/19 25 1:27 PM EDT A fall risk assessment has been complete d for the patient 08/23/2024 1:26 PM EDT A Body Mass Index follow-up plan has been documented for the patient 08/23/2024 2:29 PM EDT documented as of this encounter Care Teams Generating Station Mechanic Relationship Specialty Start Date End Date Sathish [place] MD [address] [place] [address] PCP - General 06/20/20 documented as of this encounter
--- OUTSIDE RECORDS SUMMARY | 2024-09-10 13:01 | XMS_ITS | Encounter Summary ---
Author Organization [facility] Address [address] [id number] Care Team Providers Care Market Basket Maker Name Role Phone Sathish [place] MD Primary Care Provider [phone] Encounter Details Date Type Department Care Team (Late Contact Info) Description 09/07/2024 Orders Only [facility] [address], [address] [place] [address] [place] Jorge, RN CH-ADULT ECMO History of DVT (deep vein thrombosis) (Primary Dx) Social History Tobacco Use Types Packs/Day Years [...] on file documented as of this encounter Plan of Treatment Upcoming Encounters Date Type Department Care Team (Late Contact Info) Description 08/29/2025 1:30 PM EDT Office Visit [facility] [place] [address] [facility] [address], [address] [place] [address] Anu Méndez, SULFUR BURNER [address] [place] [address] Scheduled Orders Name Type Priority Associated Diagnoses Orde r Schedule Lupus anticoagulant Lab Routine History of DVT (deep vein thrombosis) Expected: 12/08/2024 (Approximate), Expires: 03/11/2026 documented as of this encounter Visit Diagnoses Diagnosis History of DVT (deep vein thrombosis)- Primary documented in this encounter Additional Health Concerns Assessment Noted Time PHQ-9 Depression Total Score: 0 08/24/19 25 1:27 PM EDT A fall risk assessment has been complete d for the patient 08/23/2024 1:26 PM EDT A Body Mass Index follow-up plan has been documented for the patient 08/23/2024 2:29 PM EDT documented as of this encounter Care Teams Market Basket Maker Relationship Specialty Start Date End Date Sathish [place] MD [address] [place] [address] PCP - General 06/20/20 documented as of this encounter
--- OUTSIDE RECORDS SUMMARY | 2024-09-10 13:01 | XMS_ITS | Encounter Summary ---
Author Organization [facility] Address [address] [place] [address] Care Team Providers Care School Operations Manager Name Role Phone Sathish [place] MD Primary Care Provider [phone] Encounter Details Date Type Department Care Team (Latest Contact Info) Description 08/23/2024 Travel Social History Tobacco Use Types Packs/Day Years [...] much Not at all 08/23/2024 1:27 PM KOFIT Halie Mcdonough Feeling tired or having raquel le energy Not at all 08/23/2024 1:27 PM EDT Halie Mcdonough Poor appetite or overeating Not at all 08/23/2024 1: 27 PM EDT Halie Mcdonough Feeling bad about yourself - or that you are a failure or have let yourself or your family down Not at all 08/23/2024 1:27 PM EDT [place] Mcdonough Trouble concentrating on thi ngs, such as reading the newspaper or watching television Not at all 08/23/2024 1:27 PM EDT Halie Mcdonough Moving or speaking so slowly that other people could have noticed? Or the opposite - being so fidgety or restless that you have been moving around a lot more than usual. Not at all 08/23/2024 1:27 PM EDT Halie Mcdonough Thoughts that you would be b dwayne [...] Halie Mcdonough documented as of this encounter Plan of Treatment Upcoming Encounters Date Type Department Care Team (Late st Contact Info) Description 08/29/2025 1:30 PM EDT Office Visit [facility] [place] [address] [facility], [address] [place] [address] Anu Méndez, WINDROWER OPERATOR [address] [place] [address] documented as of this encounter [...] documented as of this encounter Care Teams School Operations Manager Relationship Specialty Start Date End Date Sathish [place] MD [address] [facility] [place] [address] PCP - General 06/20/20 documented as of this encounter
--- OUTSIDE RECORDS SUMMARY | 2024-09-10 13:01 | XMS_ITS | Encounter Summary ---
Author Organization [facility] Address [address] [id number] Care Team Providers Care Desktop Support Technician Name Role Phone Sathish [place] MD Primary Care Provider [phone] Encounter Details Date Type Department Care Team (Latest Contact Info) Description 08/24/2024 Travel Social History Tobacco Use Types Packs/Day [...] Description 08/29/2025 1:30 PM EDT Office Visit [facility] [place] [address] [facility], [address] [place] [address] Anu Méndez, PRODUCE WRAPPER [address] [place] [address] documented as of this encounter [...] documented as of this encounter Care Teams Desktop Support Technician Relationship Specialty Start Date End Date Sathish [place] MD [address] [id number] PCP - General 06/20/20 documented as of this encounter
--- OUTSIDE RECORDS SUMMARY | 2024-09-10 13:01 | XMS_ITS | Clinical Summary ---
Author Organization [facility] Address [address] [place] [address] Care Team Providers Care Check Examiner Name Role Phone Sathish Clayton MD Primary Care Provider + [phone] Allergies No known active allergies Medications atorvastatin (Lipitor) 10 MG tablet 08/02/2022 Active Vitamin D3 1.25 MG (89019 UT) capsule Take 1 capsule (50,000 Units) by mouth 1 (one) time per week. 09/01/2022 Active citalopram (CeleXA) 10 MG tablet 09/01/2022 Active finasteride (Proscar) 5 MG tablet Take 1 tablet (5 mg) by mouth 1 (one) time each day. 09/01/2022 Active folic acid (Folvite) 1 MG tablet 09/01/2022 Active metoprolol succinate XL (Toprol-XL) 25 MG 24 hr tablet 09/01/2022 Act allyson QUEtiapine (SEROquel) 100 MG tablet 09/01/2022 Active Xarelto 20 MG tablet 09/01/2022 Active tamsulosin (Flomax) 0.4 MG 24 hr capsule 09/01/2022 Activ e thiamine (Vitamin B-1) 100 MG tablet 09/01/2022 Activ e omeprazole (PriLOSEC) [address] capsule Take 1 capsule (20 mg) by mouth 1 (one) time each day. Do not crush or chew. Active Active Problems Problem Noted Date Diagnosed Date History of DVT (deep vein thrombosis) 03/25/2023 Encounters Date Type Department Care Team Description 09/07/2024 Orders Only [facility] [place] [address] [facility] [address] [facility], [address] [place] [address] Swiger, Chatham N, RN History of DVT (deep vein thrombosis) (Primary Dx) 09/05/2024 Results Follow-Up [facility] [address] [place] [address] Anu Méndez APRN 08/24/2024 Travel 08/23/2024 2:00 PM EDT - 08/23/2024 11:59 PM EDT Hospital Encounter Medical Office Building Cardiac Diagnostic Testing Medical Office Building Echo Lab [address] [facility] [address] [facility], [address] [place] [id number] Atrial flutter, unspecified type (CMS/HCC) Discharge Disposition: Home or Self Care 08/23/2024 1:30 PM EDT Office Visit [facility] [address] [facility], [address] [place] [id number] Anu Méndez, FILTER CHANGING TECHNICIAN Deep vein thrombosis (DVT) of left posterior tibial vein (Primary Dx); Atrial flutter, unspecified type (CMS/HCC); Abnormal stress test 08/23/2024 Travel from Last 3 Months Family History Medical History Relation Name Comments Cancer Other Relation Name Status Comments Other Social History Tobacco Use Types Packs/Day Years [...] on file Sexual Orientation Not on file Last Filed Vital Signs Vital Sign Reading Time Taken Comments Blood Pressure 121/77 08/23/2024 1:24 PM EDT Pulse 68 08/23/2024 1:24 PM EDT Temperature - - Respiratory Rate 20 02/09/2024 11:27 AM EST Oxygen Saturation 92% 08/23/2024 1:24 PM EDT Inhaled Oxygen Concentration - - Weight 87 kg (191 lb 12.8 oz) 08/23/2024 1:24 PM EDT Height 177.8 cm (5' 10 ) 08/23/2024 1:24 PM EDT Body Mass Index 27.52 08/23/2024 1:24 PM EDT Plan of Treatment Upcoming Encounters Date Type Department Care Team (Late st Contact Info) Description 08/29/2025 1:30 PM EDT Office Visit [facility] [place] [address] [address] [facility] [address] [facility], [address] [place] [address] Anu Méndez, FILTER CHANGING TECHNICIAN [address] [place] [address] Health Maintenance Due Date Last Done Comments [facility]-HIV Screening 1964 [facility]-Hepatitis C Screening 1964 [facility]-Infant/Child/Adol SDOH Screenings 1964 [facility]- SDOH Screenings 1982 [facility]-Adult SDOH Screenings 1982 CT Colonography 2009 Colonoscopy 2009 FIT-DNA 2009 FIT 2009 FOBT 2009 Sigmoidoscopy 2009 [facility]-Colorectal Cancer Screening 2009 [facility]-Pneumococcal Vaccine: 50+ Years (1 of 1 - PCV) 2014 [facility]-Zoster Vaccines (1 of 2) 2014 [facility]-DTaP,Tdap,and Td Vaccines (2 - Td or Tdap) 09/25/2019 09/24/2009, 04/12/1996 [id number] Vaccine ( season) 2023 11/25/2021, 10/29/2020, 05/21/2020, Additional history exists [facility]-Influenza Vaccine (#1) 10/08/202411/16, 01/20/2022, 01/05/2021, Additional history exists [facility]-Depression Screening 08/23/2025 08/23/2024, 08/07 [facility]-RSV Vaccine: 60+ Years or (1 - 1-dose 75+ series) 2039 [facility]-Obesity Intervention Completed 025, 02/09/2024, 03/25/2023, Additional history exists HPV Vaccines Aged Out No longer eligi ble based on patient's age to complete this topic [facility]-HIB Vaccines Aged Out No longer e ligible based on patient's age to complete this topic [facility]-Hepatitis A Vaccines Aged Out No longer eligible based on patient's age to complete this topic [facility]-IPV Vaccines Aged Out No longer e ligible based on patient's age to complete this topic [facility]-Rotavirus Vaccines Aged Out No lo nger eligible based on patient's age to complete this topic Procedures Procedure Name Priority Date/Time Associated Diagnosis Comments STACLOT LA20 Routine 08/23/2024 2:04 PM EDT [...] thrombosis (DVT) of left posterior tibial vein FACTOR V LEIDEN AND PROTHROMBIN MUTATION BY PCR Routine 08/23/2024 2:04 PM EDT Deep vein thrombosis (DVT) of left posterior tibial vein ECG ADULT Routine 08/23/2024 1:48 PM EDT Atrial flutter, unspecified type (CMS/HCC) from Last 3 Months Results * Factor V Leiden and Prothrombin Mutation by PCR (08/23/2024 2:04 PM EDT) Interpretation F5 c.1601G>A (formerly known as Factor V Leiden): Negative F2 c.*97G>A (formerly known as Prothrombin [id number]): Negative This patient is unlikely to have an increased risk of venous thrombosis related to these two genetic variants. Venous thrombosis is a relatively common disorder and the genetic causes are largely unknown. These results are unlikely to significantly reduce the venous thrombosis risk derived from clinical and family history. Variant Description: 1. Coagulation factor V gene (F5): dn3954, chr1: g.[id number]>T (hg38), c.1601G>A (NM_000130.4), p.Jxl352Wcs (NP_000121.2), 2. Coagulation factor II (F2): [id number], chr11: g.08515673S>A (hg38), c.*97G>A(NM_000506 .4) 08/30/2024 3:07 PM EDT [facility] Methodology Polymerase chain reaction (PCR) was used to amplify the target regions of the F5 gene and the F2 gene, followed by allelic discrimination with Taqman probes. This test is designed for the detection of the two variants listed above, other variants will not be detected. 08/30/2024 3:07 PM EDT [facility] References 1. Carlito MANDUJANO. Factor V Leiden Thrombophilia. 2009Apr 15. Tessie 2. Carlito MANDUJANO. Prothrombin-Relate d Thrombophilia. 2013Sep 20 Tessie 08/30/2024 3:07 PM EDT [facility] Disclaimer This test was developed and its performance characteristics determined by the Clinical Molecular and Genomic Pathology Laboratory at the [facility]. It has not been cleared or approved [...] clinical laboratory testing. 08/30/2024 3:07 PM EDT [facility] Blood Venous blood specimen / Unknown Venipuncture / Unknown 08/23/2024 2:04 PM EDT 08/23/2024 2:04 PM EDT Anu Méndez APRN LAB MOLECULAR DIAGNOSTICS ORD ERABLES Final Result Performing Organization Address [facility] Co de Phone Number [facility] [address] [place] [address], [place] * Anticardiolipin (08/23/2024 2:04 PM EDT) IgG Anticardiolipin <1.60 <20.00 GPL Units/mL 08/23/2024 8:21 PM EDT [facility] Anticardiolipin IgG Interpretation Negative Negative 08/23/2024 8:21 PM EDT [facility] IgM Anticardiolipin 2.70 <20.00 MPL Units/mL 08/23/2024 8:21 PM EDT [facility] Anticardiolipin IgM Interpretation Negative Negative 08/23/2024 8:21 PM EDT [facility] Blood Venous blood specimen / Unknown Venipuncture / Unknown 08/23/2024 2:04 PM EDT 08/23/2024 2:04 PM EDT Anu Méndez APRN LAB BLOOD ORDERABLES Final Re sult Performing Organization Address [facility] Co de Phone Number [facility] [address] [place] [address] * Staclot LA20 (08/23/2024 2:04 PM EDT) Blood Venous blood specimen / Unknown Venipuncture / Unknown 08/23/2024 2:04 PM EDT 08/23/2024 2:04 PM EDT Anu Méndez APRN LAB BLOOD ORDERABLES Final Re sult Performing Organization Address City/[facility]/ZIP Co de Phone Number [facility] [address] [place] [address] * Protein S activity (08/23/2024 2:04 PM EDT) Protein S Activity 61.0 57 - 143 % LAB COAGULATION METHOD 08/29/2024 4:05 AM EDT [facility] Blood Venous blood specimen / Unknown Venipuncture / Unknown 08/23/2024 2:04 PM EDT 08/23/2024 2:04 PM EDT Narrative [facility] - 08/29/2024 4:05 AM EDT Coagulation proteins produced in liver, especially the vitamin K dependent ones (FII, FVII, FIX, FX, Protein C and Protein S) are normally decreased in newborns, increasing to adult levels over the first six months. Those produced in endothelium (FVIII, vWF) approximate adult levels throughout development. Anu sevenload FILTER CHANGING TECHNICIAN LAB BLOOD ORDERABLES Final Re sult Performing Organization Address [facility] Co de Phone Number [facility] [address] [place] [address] * Protein C activity (08/23/2024 2:04 PM EDT) Pathologist [facility] Protein C 104 83 - 168 % LAB COAGULATION METHOD 08/29/2024 4:05 AM EDT [facility] Blood Venous blood specimen / Unknown Venipuncture / Unknown 08/23/2024 2:04 PM EDT 08/23/2024 2:04 PM EDT Narrative [facility] - 08/29/2024 4:05 AM EDT [...] in liver disease and during coumadin therapy. [email or web address] FILTER CHANGING TECHNICIAN LAB BLOOD ORDERABLES Final Re sult Performing Organization Address City/[facility]/ZIP Co de Phone Number [facility] [address] [place] [address] * (ABNORMAL) Lupus anticoagulant (08/23/2024 2:04 PM EDT) Lupus Anticoagulant Result Lupus anticoagulant (LA) detected by dRVVT only. Testing is negative by LA-sensitive aPTT assay. Recommend repeat testing at or greater than 12 weeks from date of this collection to confirm lupus anticoagulant is persistent. 08/24/2024 2:59 PM EDT [facility] aPTT Lupus Anticoagulant Sensitive 52.1(H) <=41.0 sec LAB COAGULATION METHOD 08/24/2024 2:59 PM EDT [facility] Staclot without Phospholipid 51.5 sec LAB COAGULATION METHOD 08/24/2024 2:59 PM EDT [facility] Staclot with Phospholipid 49.3 sec LAB COAGULATION METHOD 08/24/2024 2:59 PM EDT [facility] Staclot Delta 2.2 <8.0 sec LAB COAGULATION METHOD 08/24/2024 2:59 PM EDT [facility] DRVVT Screen 81.4 sec LAB COAGULATION METHOD 08/24/2024 2:59 PM EDT [facility] DRVVT Screen Ratio 10.18(H) <1.20 LAB COAGULATION METHOD 08/24/2024 2:59 PM EDT [facility] DRVVT Confirmation 57.8 sec LAB COAGULATION METHOD 08/24/2024 2:59 PM EDT [facility] DRVVT Confirmation Ratio 1.62 LAB COAGULATION METHOD 08/24/2024 2:59 PM EDT [facility] DRVVT Screen Ratio/Confirmati on Ratio 6.28(H) <1.20 LAB COAGULATION METHOD 08/24/2024 2:59 PM EDT [facility] Blood Venous blood specimen / Unknown Venipuncture / Unknown 08/23/2024 2:04 PM EDT 08/23/2024 2:04 PM EDT us Anu Méndez APRN LAB BLOOD ORDERABLES Final Re sult [facility] [address] [place] [address] * DRVVT (08/23/2024 2:04 PM EDT) Blood Venous blood specimen / Unknown Venipuncture / Unknown 08/23/2024 2:04 PM EDT 08/23/2024 2:04 PM EDT Anu W Méndez FILTER CHANGING TECHNICIAN LAB BLOOD ORDERABLES Final Re sult Performing Organization Address City/[facility]/ZIP Co de Phone Number [facility] [address] [place] [address] * Antithrombin III (08/23/2024 2:04 PM EDT) Antithrombin III 94 90 - 133 % LAB COAGULATION METHOD 08/23/2024 5:56 PM EDT [facility] Blood Venous blood specimen / Unknown Venipuncture / Unknown 08/23/2024 2:04 PM EDT 08/23/2024 2:04 PM EDT us Anu Méndez APRN LAB BLOOD ORDERABLES Final Re sult Performing Organization Address [facility] Co de Phone Number [facility] [address] [place] [address] * ECG Adult (Now - Performed in your clinic) (08/23/2024 1:48 PM EDT) EKG DIAGNOSIS CLASS Abnormal MUSE ECG Ventricular Rate 63 BPM MUSE ECG Atrial Rate [address] Interval 238 ms MUSE ECG QRSD Interval 82 ms MUSE ECG QT Interval 420 ms MUSE ECG QTC Interval 429 ms MUSE ECG P [place] 38 degrees MUSE ECG R [place] -43 degrees MUSE ECG T Wave [place] 27 degrees MUSE ECG Diagnosis Sinus rhythm with 1st degree AV block MUSE ECG Diagnosis Left axis deviation MUSE ECG Diagnosis Inferior infarct , age undetermined MUSE ECG Diagnosis Abnormal ECG MUSE ECG Diagnosis MUSE ECG Diagnosis Confirmed by Inocente Vo ([id number]) on 08/23/2024 3:10:06 PM MUSE ECG 08/23/2024 1:48 PM EDT 08/23/2024 3:10 PM EDT us Anu Méndez FILTER CHANGING TECHNICIAN ECG ORDERABLES Final Result Performing Organization Address City/[facility] Co de Phone Number MUSE ECG from Last 3 Months Insurance [employer] [place] [id number] [employer] Care Teams Check Examiner Relationship Specialty Start Date End Date Sathish Clayton MD [address] [place] [address] PCP - General 06/20/20
--- OUTSIDE RECORDS SUMMARY | 2024-09-10 13:01 | XMS_ITS | Clinical Summary ---
Author Organization [facility] Address [address] [place] [phone] Phone Care Team Providers Care Complaints Coordinator Name Role Phone Unavailable Primary Care Provider Unavailabl e Allergies No known active allergies Medications No known medications Social History Tobacco Use Types Packs/Day Years Used Date Smoking Tobacco: Never Smokeless Tobacco: Never Sex and Gender Information Value Date Recorded Sex Assigned at Not on file Legal Sex Male 2:33 AM EDT Gender Identity Not on file Sexual Orientation Not on file Obstetrics History Last Filed Vital Signs Vital Sign Reading Time Taken Comments Blood Pressure 127/80 03/23/2018 8:02 PM EST Pulse 83 03/23/2018 8:09 PM EST Temperature 36.6 C (97.9 F) 03/23/2018 6:27 PM EST Respiratory Rate 14 03/23/2018 8:09 PM EST Oxygen Saturation 97% 03/23/2018 8:09 PM EST Inhaled Oxygen Concentration - - Weight 77.1 kg (170 lb) 03/23/2018 6:27 PM EST Height 177.8 cm (5' 10 ) 03/23/2018 6:27 PM EST Body Mass Index 24.39 03/23/2018 6:27 PM EST Plan of Treatment Health Maintenance Due Date Last Done Comments Annual Wellness Exam 1967 Hepatitis C Screening 1982 DTaP/TDaP/Td (1 - Tdap) 1983 Cologuard 2009 Colon Cancer Screening 2009 Colonoscopy 2009 FIT 2009 Sigmoidoscopy 2009 Virtual Colonography 2009 Pneumococcal Vaccine 50+ (1 of 1 - PCV) 2014 Zoster (1 of 2) 2014 COVID-19 Vaccine (2023-2 5 season) 2023 Influenza Vaccine (#1) 2024 Hepatitis B Vaccine Aged Out No longe r eligible based on patient's age to complete this topic Meningococcal B Vaccine Aged Out No l onger eligible based on patient's age to complete this topic Insurance MEDICAID
== END 2024-09-10 23:59 | disposition home or self-care (01) ==
LOC: RT 12:55
PROVIDERS: PCP Family Medicine; Visit Provider Nurse Practitioner Primary Care
DX: I08.8 Other rheumatic multiple valve diseases (principal); I48.92 Unspecified atrial flutter; S06.9XAA Unspecified intracranial injury with loss of consciousness status unknown, initial encounter
CPT/HCPCS: 93306

== ENCOUNTER 2024-11-16 09:51 | Outpatient (CLI) | payer MEDICAID, SELFPAY ==
[2024-11-16 14:45] LABS: Hematocrit 49.7 % (42.0-52.0); Hemoglobin 17.1 g/dL (14.1-18.0); Immature Granulocytes % 0.3 %; Mean Corpuscular HGB Conc 34.4 g/dL (31.8-35.4); Mean Corpuscular Hemoglobin 32.3 pg (27.0-31.2); Mean Corpuscular Volume 93.8 fl (80-94); Nucleated Red Blood Cells % 0 %; Platelet Count 163 K/mm3 (142-424); Red Blood Count 5.30 M/mm3 (4.60-6.20); Red Cell Distribution Width-SD 42.9 fL; White Blood Count 7.4 K/mm3 (4.8-10.8)
[2024-11-16 15:19] LABS: Alanine Aminotransferase 22 U/L (12-78); Albumin Level 4.5 g/dl (3.5-5.0); Albumin/Globulin Ratio 1.1 (1.1-1.8); Alkaline Phosphatase 124 U/L (38-126); Anion Gap 16.5 mEq/L (5-15); Aspartate Amino Transferase 29 U/L (17-59); Bilirubin,Total 1.9 mg/dl (0.2-1.3); Blood Urea Nitrogen 20 mg/dl (9-20); Calcium 9.3 mg/dl (8.4-10.2); Carbon Dioxide 25 mmol/L (22.0-30.0); Chloride 102 mmol/L (98-107); Cholesterol 145 mg/dl (140-200); Creatinine,Serum 1.00 mg/dl (0.66-1.25); Estimated Glomerular Filt Rate 76 ml/min (>60); GFR (African American) 92 ML/MIN (>60); Globulin 4.0 g/dL (1.3-3.2); Glucose 125 mg/dl (74-100); HDL Cholesterol 28 mg/dl (40-60); Potassium 4.5 mmoL/L (3.5-5.1); Sodium 139 mmol/L (136-145); Total Protein,Serum 8.5 g/dl (6.3-8.2); Triglycerides 183 mg/dl (30-150)
--- OUTSIDE RECORDS SUMMARY | 2024-11-19 09:59 | XMS_ITS | Clinical Summary ---
Author Organization [facility] Address [address] [place] [address] Phone Care Team Providers Care Cooler Service Supervisor Name Role Phone Unavailable Primary Care Provider [...] 2) 2014 COVID-19 Vaccine (2023-2 5 season) 2024 Influenza Vaccine (#1) 2024 Hepatitis B Vaccine Aged Out No longe r eligible based on patient's age to complete this topic Meningococcal B Vaccine Aged Out No l onger eligible based on patient's age to complete this topic Insurance MEDICAID
--- OUTSIDE RECORDS SUMMARY | 2024-11-19 09:59 | XMS_ITS | Encounter Summary ---
Author Organization [facility] Address [address] [id number] Care Team Providers Care Gold Letterer Name Role Phone Sathish [facility] MD Primary Care Provider [phone] Encounter Details Date Type Department Care Team (Late st Contact Info) Description 09/05/2024 Results Follow-Up [facility] [place] [address] [facility] [place] [id number] Anu Méndez, DEVON [address] [place] [address] Social History Tobacco Use Types [...] Méndez, DEVON - 09/05/2024 12:58 PM EDT [place]- Can you call Mr. Brunson's mom and [...] he needs to stay on Xarelto. Thanks, Claduia documented in this encounter Plan of Treatment Upcoming Encounters Date Type Department Care Team (Late st Contact Info) Description 08/29/2025 1:30 PM EDT Office Visit [facility] [place] [address] [facility], [address] [place] [address] Anu Méndez APRN [address] [place] [address] documented as of this encounter [...] documented as of this encounter Care Teams Gold Letterer Relationship Specialty Start Date End Date Sathish Clayton MD [address] [place] [address] PCP - General 06/20/20 documented as of this encounter
--- OUTSIDE RECORDS SUMMARY | 2024-11-19 09:59 | XMS_ITS | Encounter Summary ---
Author Organization [facility] Address [address] [id number] Care Team Providers Care Camper Assembler Name Role Phone Sathish [facility] MD Primary Care Provider [phone] Encounter Details Date Type Department Care Team (Late Contact Info) Description 09/27/2024 External Documentati on Encounter [facility] [address] , [address] [place] [address] Dorothy Jorge RN CH-ADULT ECMO Social History Tobacco Use Types Packs/Day Years [...] Upcoming Encounters Date Type Department Care Team ([facility] Contact Info) Description 08/29/2025 1:30 PM EDT Office Visit [facility] [address] , [address] [place] [address] Anu Méndez, MAKE UP MAN [address] [place] [address] documented as of this encounter Visit Diagnoses Not on filedocumented in this encounter Additional Health Concerns Assessment Noted Time PHQ-9 Depression Total Score: 0 08/24/19 1:27 PM EDT A fall risk assessment has been complete d for the patient 08/23/2024 1:26 PM EDT A Body Mass Index follow-up plan has been documented for the patient 08/23/2024 2:29 PM EDT documented as of this encounter Care Teams Camper Assembler Relationship Specialty Start Date End Date Sathish Clayton MD [address] [id number] PCP - General 06/20/20 documented as of this encounter
--- OUTSIDE RECORDS SUMMARY | 2024-11-19 09:59 | XMS_ITS | Encounter Summary ---
Author Organization [facility] Address [address] [place] [address] Care Team Providers Care Bedspread Folder Name Role Phone Sathish [facility] MD Primary Care Provider [phone] Encounter Details Date Type Department Care Team (Late Contact Info) Description 09/26/2024 Telephone [facility] [place] [address] [facility] [address] [facility], [address] [place] [address] Anu Méndez APRN [address] [place] [address] Social History Tobacco Use Types [...] as of this encounter Miscellaneous Notes * Telephone Encounter - Anu Méndez APRN - 09/26/2024 2:37 PM EDT Spoke with Britt Brunson, patient's mother, and advised of normal Holter monitor report. She relayed that he'd had an echo a couple of weeks ago at [facility], will obtain results and call with any concerns. Claudia Méndez APRN documented in this encounter Plan of Treatment Upcoming Encounters Date Type Department Care Team (Late st Contact Info) Description 08/29/2025 1:30 PM EDT Office Visit [facility] [place] [address] [facility], [address] [place] [address] Anu Méndez, MANUAL QA TESTER [address] [place] [address] documented as of this encounter [...] documented as of this encounter Care Teams Bedspread Folder Relationship Specialty Start Date End Date Sathish Clayton MD [address] [place] [address] PCP - General 06/20/20 documented as of this encounter
--- OUTSIDE RECORDS SUMMARY | 2024-11-19 09:59 | XMS_ITS | Encounter Summary ---
Author Organization [facility] Address [address] [place] [address] Care Team Providers Care Gas Golf Cart Repairer Name Role Phone Sathish [facility] MD Primary Care Provider [phone] Encounter Details Date Type Department Care Team (Late Contact Info) Description 09/26/2024 Telephone [facility] [place] [address], [address] [place] [address] Anu Méndez APRN [address] [place] [address] Social History Tobacco Use Types [...] Encounter - Anu Méndez APRN - 09/26/2024 11:19 AM EDT [facility] that I was trying to reach patient's mother to review recent Holter monitor results. Claudia Méndez APRN documented in this encounter Plan of Treatment Upcoming Encounters Date Type Department Care Team (Late Contact Info) Description 08/29/2025 1:30 PM EDT Office Visit [facility] [place] [address] [facility], [address] [place] [address] Anu Méndez, TECHNICAL AGRONOMIST [address] [place] [address] documented as of this encounter [...] documented as of this encounter Care Teams Gas Golf Cart Repairer Relationship Specialty Start Date End Date Sathish [facility] MD [address] [place] [address] PCP - General 06/20/20 documented as of this encounter
--- OUTSIDE RECORDS SUMMARY | 2024-11-19 09:59 | XMS_ITS | Clinical Summary ---
Author Organization [facility] Address [address] [place] [address] Care Team Providers Care Solderer Furnace Name Role Phone Sathish Clayton MD Primary Care Provider [phone] Allergies No known active allergies Medications atorvastatin (Lipitor) 10 MG tablet 08/02/2022 Active Vitamin D3 1.25 MG (49216 UT) capsule Take 1 capsule (50,000 Units) [...] Encounters Date Type Department Care Team Description 09/27/2024 External Documentati on Encounter [facility] [address], [address] [place] [address] Dorothy Jorge RN 09/26/2024 Telephone [facility] [address], [address] [place] [address] Anu Méndez, CAKE PRESS OPERATOR HELPER 09/26/[address] [facility] [address], [address] [place] [address] Anu Méndez, CAKE PRESS OPERATOR HELPER 09/07/[address] [facility] [address] [facility] [facility] [address], [address] [place] [address] Dorothy Jorge, RN History of DVT (deep vein thrombosis) (Primary Dx) 09/05/2024 Results Follow-Up [facility] [address] [place] [address] Anu Méndez, CAKE PRESS OPERATOR HELPER 08/24/2024 Travel 08/23/2024 2:00 PM EDT - 08/23/2024 11:59 PM EDT Hospital Encounter Medical Office Building Cardiac Diagnostic Testing Medical Office Building Echo Lab [address], [address] [place] [address] Atrial flutter, unspecified type (CMS/HCC) Discharge Disposition: Home or Self Care 08/23/2024 1:30 PM EDT Office Visit [facility] [address], [address] [place] [address] Anu Méndez, CAKE PRESS OPERATOR HELPER Deep vein thrombosis (DVT) of left posterior [...] Description 08/29/2025 1:30 PM EDT Office Visit [facility] [address], [address] [place] [address] Anu Méndez, CAKE PRESS OPERATOR HELPER [address] [place] [address] Health Maintenance Due Date Last Done Comments [facility]-HIV Screening 1964 [facility]-Hepatitis C Screening 1964 [facility]-/Child/Adol SDOH Screenings 1964 [facility]- SDOH Screenings 1982 [facility]-Adult SDOH Screenings 1982 CT Colonography 2009 Colonoscopy 2009 FIT-DNA 2009 FIT 2009 FOBT 2009 Sigmoidoscopy 2009 [facility]-Colorectal Cancer Screening 2009 [facility]-Pneumococcal Vaccine: 50+ Years (1 of 1 - PCV) 2014 [facility]-Zoster Vaccines (1 of 2) 2014 [facility]-DTaP,Tdap,and Td Vaccines (2 - Td or Tdap) 09/25/2019 09/24/2009, 04/12/1996 [id number] Vaccine ( season) 2024 11/25/2021, 10/29/2020, 05/21/2020, Additional history exists [facility]-Influenza [...] Procedure Name Priority Date/Time Associated Diagnosis Comments ADULT PATCH MONITOR - 14 DAY Routine 08/23/2024 2:20 PM EDT Atrial flutter, unspecified type (CMS/HCC) STACLOT LA20 Routine 08/23/2024 2:04 PM EDT [...] (CMS/HCC) from Last 3 Months Results * Adult Patch Monitor - 14 Day (08/23/2024 2:20 PM EDT) BSA 2.07 m2 BIOTELEMETRY Anatomical Region Laterality Modality Other Narrative 09/21/2024 1:44 PM EDT PRELIMINARY FINDINGS: Analysis date: 09/12/24 - by VP1-CCT Patient monitored for 13d 23h, analyzable time was 13d 23h starting on 08/23/2024 02:20 pm. Primary rhythm was Sinus Rhythm. Average heart rate was 69 bpm, Minimum heart rate was 47 bpm on Day :21:07 am, Max heart rate was 133 bpm on Day :19:02 pm SVE(s): [place] was < 0.01 %, 105 total SVE(s) SV Arrhythmia(s): 2 event(s), longest event 3 beats on Day :11:18 pm, fastest event 126 bpm on Day :11:18 pm PVC(s): [place] was 0.03 %, 377 total PVC(s), 3 disparate morphologies Patient recorded 3 event(s) during the monitoring period PHYSICIAN COMMENTS: Agree with findings Patient events limited by artifact but correlate with sinus and sinus tachycardia 79-104 BPM Anu Méndez APRN CV CARDIAC SERVICES PROCEDURE S Final Result * Factor V Leiden and Prothrombin Mutation by PCR (08/23/2024 2:04 PM EDT) Interpretation F5 c.1601G>A (formerly known as Factor V Leiden): Negative F2 c.*97G>A (formerly known as Prothrombin [id number]): Negative This patient is unlikely to have an increased risk of venous thrombosis related to these two genetic variants. Venous thrombosis is a relatively common disorder and the genetic causes are largely unknown. These results are unlikely to significantly reduce the venous thrombosis risk derived from clinical and family history. Variant Description: 1. Coagulation factor V gene (F5): [id number], chr1: g.[id number]>T (hg38), c.1601G>A (NM_000130.4), p.Jna239Kdi (NP_000121.2), 2. Coagulation factor II (F2): [id number], chr11: g.25577787E>A (hg38), c.*97G>A(NM_000506 .4) 08/30/2024 3:07 PM EDT [facility] Methodology Polymerase chain reaction (PCR) was used to amplify the target regions of the F5 gene and the F2 gene, followed by allelic discrimination with Taqman probes. This test is designed for the detection of the two variants listed above, other variants will not be detected. 08/30/2024 3:07 PM EDT [facility] References 1. Carlito MANDUJANO. Factor V Leiden Thrombophilia. 2009Apr 15. Tessie 2. Carlito MANDUJANO. Prothrombin-Relate d Thrombophilia. 2013Sep 20 Tessie 08/30/2024 3:07 PM EDT [facility] Disclaimer This test was developed and its performance characteristics determined by the Clinical Molecular and Genomic Pathology Laboratory at the [facility]. It has not been cleared or [...] clinical laboratory testing. 08/30/2024 3:07 PM EDT [facility] Blood Venous blood specimen / Unknown Venipuncture / Unknown 08/23/2024 2:04 PM EDT 08/23/2024 2:04 PM EDT Anu Méndez APRN LAB MOLECULAR DIAGNOSTICS ORD ERABLES Final Result Performing Organization Address [facility] Co de Phone Number [facility] [address] [place] [address], [place] * Anticardiolipin (08/23/2024 2:04 PM EDT) IgG Anticardiolipin <1.60 <20.00 GPL Units/mL 08/23/2024 8:21 PM EDT [facility] Anticardiolipin IgG Interpretation Negative Negative 08/23/2024 8:21 PM EDT [facility] IgM Anticardiolipin 2.70 <20.00 MPL Units/mL 08/23/2024 8:21 PM EDT [facility] Anticardiolipin IgM Interpretation Negative Negative 08/23/2024 8:21 PM EDT [facility] Blood Venous blood specimen / Unknown Venipuncture / Unknown 08/23/2024 2:04 PM EDT 08/23/2024 2:04 PM EDT Anu Méndez APRN LAB BLOOD ORDERABLES Final Re sult Performing Organization Address [facility] Co de Phone Number [facility] [address] [place] [address] * Staclot LA20 (08/23/2024 2:04 PM EDT) Blood Venous blood specimen / Unknown Venipuncture / Unknown 08/23/2024 2:04 PM EDT 08/23/2024 2:04 PM EDT Anu Méndez APRN LAB BLOOD ORDERABLES Final Re sult [facility] [address] [place] [address] * Protein S activity (08/23/2024 2:04 PM EDT) Protein S Activity 61.0 57 - 143 % LAB COAGULATION METHOD 08/29/2024 4:05 AM EDT [facility] Blood Venous blood specimen / Unknown Venipuncture / Unknown 08/23/2024 2:04 PM EDT 08/23/2024 2:04 PM EDT Narrative [facility] - 08/29/2024 4:05 AM EDT Coagulation proteins produced in liver, especially the vitamin K dependent ones (FII, FVII, FIX, FX, Protein C and Protein S) are normally decreased in newborns, increasing to adult levels over the first six months. Those produced in endothelium (FVIII, vWF) approximate adult levels throughout development. [employer] CAKE PRESS OPERATOR HELPER LAB BLOOD ORDERABLES Final Re sult Performing Organization Address [facility] Co de Phone Number [facility] [address] [place] [address] * Protein C activity (08/23/2024 2:04 PM EDT) Pathologist [facility] Protein C 104 83 - 168 % LAB COAGULATION METHOD 08/29/2024 4:05 AM EDT [facility] Blood Venous blood specimen / Unknown Venipuncture / Unknown 08/23/2024 2:04 PM EDT 08/23/2024 2:04 PM EDT Narrative [facility] - 08/29/2024 4:05 AM EDT [...] in liver disease and during coumadin therapy. [email or web address] CAKE PRESS OPERATOR HELPER LAB BLOOD ORDERABLES Final Re sult Performing Organization Address City/[facility]/ZIP Co de Phone Number [facility] [address] [place] [address] * (ABNORMAL) Lupus anticoagulant (08/23/2024 2:04 PM EDT) Lupus Anticoagulant Result Lupus anticoagulant (LA) detected by dRVVT only. Testing is negative by LA-sensitive aPTT assay. Recommend repeat testing at or greater than 12 weeks from date of this collection to confirm lupus anticoagulant is persistent. 08/24/2024 2:59 PM EDT [facility] aPTT Lupus Anticoagulant Sensitive 52.1(H) <=41.0 sec LAB COAGULATION METHOD 08/24/2024 2:59 PM EDT [facility] Staclot without Phospholipid 51.5 sec LAB COAGULATION METHOD 08/24/2024 2:59 PM EDT [facility] Staclot with Phospholipid 49.3 sec LAB COAGULATION METHOD 08/24/2024 2:59 PM EDT [facility] Staclot Delta 2.2 <8.0 sec LAB COAGULATION METHOD 08/24/2024 2:59 PM EDT [facility] DRVVT Screen 81.4 sec LAB COAGULATION METHOD 08/24/2024 2:59 PM EDT [facility] DRVVT Screen Ratio 10.18(H) <1.20 LAB COAGULATION METHOD 08/24/2024 2:59 PM EDT [facility] DRVVT Confirmation 57.8 sec LAB COAGULATION METHOD 08/24/2024 2:59 PM EDT [facility] DRVVT Confirmation Ratio 1.62 LAB COAGULATION METHOD 08/24/2024 2:59 PM EDT [facility] DRVVT Screen Ratio/Confirmati on Ratio 6.28(H) <1.20 LAB COAGULATION METHOD 08/24/2024 2:59 PM EDT [facility] Blood Venous blood specimen / Unknown Venipuncture / Unknown 08/23/2024 2:04 PM EDT 08/23/2024 2:04 PM EDT us Anu Méndez APRN LAB BLOOD ORDERABLES Final Re sult [facility] [address] [place] [address] * DRVVT (08/23/2024 2:04 PM EDT) Blood Venous blood specimen / Unknown Venipuncture / Unknown 08/23/2024 2:04 PM EDT 08/23/2024 2:04 PM EDT us Anu W Méndez CAKE PRESS OPERATOR HELPER LAB BLOOD ORDERABLES Final Re sult Performing Organization Address City/[facility]/ZIP Co de Phone Number [facility] [address] [place] [address] * Antithrombin III (08/23/2024 2:04 PM EDT) Antithrombin III 94 90 - 133 % LAB COAGULATION METHOD 08/23/2024 5:56 PM EDT [facility] Blood Venous blood specimen / Unknown Venipuncture / Unknown 08/23/2024 2:04 PM EDT 08/23/2024 2:04 PM EDT us Anuradha Méndez CAKE PRESS OPERATOR HELPER LAB BLOOD ORDERABLES Final Re sult Performing Organization Address [facility] Co de Phone Number [facility] [address] [place] [address] * ECG Adult (Now - Performed in your clinic) (08/23/2024 1:48 PM EDT) EKG DIAGNOSIS CLASS Abnormal MUSE ECG Ventricular Rate 63 BPM MUSE ECG Atrial Rate 63 BPM MUSE ECG MO Interval 238 ms MUSE ECG QRSD Interval 82 ms MUSE ECG QT Interval 420 ms MUSE ECG QTC Interval 429 ms MUSE ECG P [place] 38 degrees MUSE ECG R [place] -43 degrees MUSE ECG T Wave [place] 27 degrees MUSE ECG Diagnosis Sinus rhythm with 1st degree AV block MUSE ECG Diagnosis Left axis deviation MUSE ECG Diagnosis Inferior infarct , age undetermined MUSE ECG Diagnosis Abnormal ECG MUSE ECG Diagnosis MUSE ECG Diagnosis Confirmed by Inocente Vo ([id number]) on 08/23/2024 3:10:06 PM MUSE ECG 08/23/2024 1:48 PM EDT 08/23/2024 3:10 PM EDT us Anuradha Méndez CAKE PRESS OPERATOR HELPER ECG ORDERABLES Final Result Performing Organization Address [facility] Co de Phone Number MUSE ECG from Last 3 Months Insurance [facility] MEDICAID Care Teams Solderer Furnace Relationship Specialty Start Date End Date Sathish Clayton MD [address] [place] [id number] PCP - General 06/20/20
== END 2024-11-16 23:59 ==
LOC: LAB.DROPOF 11-19 09:52
PROVIDERS: PCP Family Medicine; Visit Provider Family Medicine
DX: E87.5 Hyperkalemia (principal); Z79.01 Long term (current) use of anticoagulants
CPT/HCPCS: 80053; 80061; 85025

== ENCOUNTER 2024-11-22 14:51 | Outpatient (CLI) | payer MEDICAID, SELFPAY ==
--- OUTSIDE RECORDS SUMMARY | 2024-11-22 14:54 | XMS_ITS | Encounter Summary ---
Author Organization [facility] Address [address] [place] [address] Care Team Providers Care Land Economist Name Role Phone Sathish Clayton MD Primary Care Provider [phone] Encounter Details Date Type Department Care Team (Late Contact Info) Description 09/26/2024 Telephone [facility] [place] [address], [address] [place] [address] Anu Méndez APRN [address] [place] [address] Social History Tobacco Use Types [...] echo a couple of weeks ago at [facility], will obtain results and call with any concerns. Claudia Méndez APRN documented in this encounter Plan of Treatment Upcoming Encounters Date Type Department Care Team (Late st Contact Info) Description 08/29/2025 1:30 PM EDT Office Visit [facility] [place] [address], [address] [place] [address] Anu Méndez, DOCUMENTATION MANAGER [address] [place] [address] documented as of this encounter [...] documented as of this encounter Care Teams Land Economist Relationship Specialty Start Date End Date Sathish Clayton MD [address] [place] [address] PCP - General 06/20/20 documented as of this encounter
--- OUTSIDE RECORDS SUMMARY | 2024-11-22 14:54 | XMS_ITS | Encounter Summary ---
Author Organization [facility] Address [address] [place] [id number] Care Team Providers Care Type Proof Reproducer Name Role Phone Sathish Clayton MD Primary Care Provider [phone] Encounter Details Date Type Department Care Team (Late st Contact Info) Description 09/05/2024 Results Follow-Up [facility] [place] [address] [facility] [place] [address] Anu Méndez, DEVON [address] [place] [address] Social History Tobacco Use Types [...] Méndez, DEVON - 09/05/2024 12:58 PM EDT [place]- Can you call Mr. Brunson's mom and [...] Description 08/29/2025 1:30 PM EDT Office Visit [facility] [place] [address] [facility], [address] [place] [address] Anu Méndez APRN [address] [place] [address] documented as of this encounter [...] documented as of this encounter Care Teams Type Proof Reproducer Relationship Specialty Start Date End Date Sathish Clayton MD [address] [place] [address] PCP - General 06/20/20 documented as of this encounter
--- OUTSIDE RECORDS SUMMARY | 2024-11-22 14:54 | XMS_ITS | Clinical Summary ---
Author Organization [facility] Address [address] [place] [address] Care Team Providers Care Construction Equipment Mechanic Helper Name Role Phone Sathish Clayton MD Primary Care Provider [phone] Allergies No known active allergies Medications atorvastatin (Lipitor) 10 MG tablet 08/02/2022 Active Vitamin D3 1.25 MG (48339 UT) capsule Take 1 capsule (50,000 Units) [...] Team Description 09/27/2024 External Documentati on Encounter [facility] [place] [address] [facility], [address] [place] [address] Dorothy Jorge RN 09/26/2024 Telephone [facility] [address] [facility], [address] [place] [address] Anu Méndez, TEAM LEAD 09/26/2024 Telephone [facility] [address] [facility], [address] [place] [address] Anu Méndez, TEAM LEAD 09/07/2024 Orders Only [facility] [address] [facility], [address] [place] [address] Dorothy Jorge, RN History of DVT (deep vein thrombosis) (Primary Dx) 09/05/2024 Results Follow-Up [facility] [address] [place] [address] Anu Méndez, TEAM LEAD 08/24/2024 Travel 08/23/2024 2:00 PM EDT - 08/23/2024 11:59 PM EDT Hospital Encounter [facility] Cardiac Diagnostic Testing [facility] [address], [address] [place] [address] Atrial flutter, unspecified type (CMS/HCC) Discharge Disposition: Home or Self Care 08/23/2024 1:30 PM EDT Office Visit [facility] [address], [address] [place] [address] Anu Méndez, TEAM LEAD Deep vein thrombosis (DVT) of left posterior [...] Description 08/29/2025 1:30 PM EDT Office Visit [facility] [place] [address], [address] [place] [address] Anu Méndez, TEAM LEAD [address] [place] [address] Health Maintenance Due Date Last [...] - Td or Tdap) 09/25/2019 09/24/2009, 04/12/1996 [id number] Vaccine ( season) 2024 11/25/2021, 10/29/2020, 05/21/2020, [...] 133 bpm on Day :19:02 pm SVE(s): [place] was < 0.01 %, 105 total SVE(s) SV Arrhythmia(s): 2 event(s), longest event 3 beats on Day :11:18 pm, fastest event 126 bpm on Day :11:18 pm PVC(s): [place] was 0.03 %, 377 total PVC(s), 3 [...] Negative F2 c.*97G>A (formerly known as Prothrombin [id number]): Negative This patient is unlikely to have an increased risk of venous thrombosis related to these two genetic variants. Venous thrombosis is a relatively common disorder and the genetic causes are largely unknown. These results are unlikely to significantly reduce the venous thrombosis risk derived from clinical and family history. Variant Description: 1. Coagulation factor V gene (F5): [id number], chr1: g.[id number]>T (hg38), c.1601G>A (NM_000130.4), p.Xtc345Nel (NP_000121.2), 2. Coagulation factor II (F2): [id number], chr11: g.22046641L>A (hg38), c.*97G>A(NM_000506 .4) 08/30/2024 3:07 PM EDT [facility] Methodology Polymerase chain reaction (PCR) was used to amplify the target regions of the F5 gene and the F2 gene, followed by allelic discrimination with Taqman probes. This test is designed for the detection of the two variants listed above, other variants will not be detected. 08/30/2024 3:07 PM EDT [facility] References 1. Carlito MANDUJANO. Factor V Leiden Thrombophilia. 2009Apr 15. Tessie 2. Carlito MANDUJANO. Prothrombin-Relate d Thrombophilia. 2013Sep 20 Tessie 08/30/2024 3:07 PM EDT [facility] Disclaimer This test was developed and its performance characteristics determined by the Clinical Molecular and Genomic Pathology Laboratory at the [facility]. It has not been cleared [...] clinical laboratory testing. 08/30/2024 3:07 PM EDT [facility] Blood Venous blood specimen / Unknown Venipuncture / Unknown 08/23/2024 2:04 PM EDT 08/23/2024 2:04 PM EDT Anu Méndez APRN LAB MOLECULAR DIAGNOSTICS ORD ERABLES Final Result Performing Organization Address [facility] Co de Phone Number [facility] [address] [place] [address], [place] * Anticardiolipin (08/23/2024 2:04 PM EDT) IgG Anticardiolipin <1.60 <20.00 GPL Units/mL 08/23/2024 8:21 PM EDT [facility] Anticardiolipin IgG Interpretation Negative Negative 08/23/2024 8:21 PM EDT [facility] IgM Anticardiolipin 2.70 <20.00 MPL Units/mL 08/23/2024 8:21 PM EDT [facility] Anticardiolipin IgM Interpretation Negative Negative 08/23/2024 8:[address] [facility] Blood Venous blood specimen / Unknown Venipuncture / Unknown 08/23/2024 2:04 PM EDT 08/23/2024 2:04 PM EDT Anu Méndez APRN LAB BLOOD ORDERABLES Final Re sult Performing Organization Address [facility] Co de Phone Number [facility] [address] [place] [address] * Staclot LA20 (08/23/2024 2:04 PM EDT) Blood Venous blood specimen / Unknown Venipuncture / Unknown 08/23/2024 2:04 PM EDT 08/23/2024 2:04 PM EDT Anu Méndez APRN LAB BLOOD ORDERABLES Final Re sult [facility] [address] [place] [address] * Protein S activity (08/23/2024 2:04 PM EDT) Protein S Activity 61.0 57 - 143 % LAB COAGULATION METHOD 08/29/2024 4:05 AM EDT [facility] Blood Venous blood specimen / Unknown Venipuncture / Unknown 08/23/2024 2:04 PM EDT 08/23/2024 2:04 PM EDT Narrative [facility] - 08/29/2024 4:05 AM EDT Coagulation proteins produced in liver, especially the vitamin K dependent ones (FII, FVII, FIX, FX, Protein C and Protein S) are normally decreased in newborns, increasing to adult levels over the first six months. Those produced in endothelium (FVIII, vWF) approximate adult levels throughout development. AnuJust Between Friends TEAM LEAD LAB BLOOD ORDERABLES Final Re sult Performing Organization Address [facility] Co de Phone Number [facility] [address] [place] [address] * Protein C activity (08/23/2024 2:04 PM EDT) Pathologist [facility] Protein C 104 83 - 168 % LAB COAGULATION METHOD 08/29/2024 4:05 AM EDT [facility] Blood Venous blood specimen / Unknown Venipuncture / Unknown 08/23/2024 2:04 PM EDT 08/23/2024 2:04 PM EDT Narrative [facility] - 08/29/2024 4:05 AM [...] in liver disease and during coumadin therapy. [employer] TEAM LEAD LAB BLOOD ORDERABLES Final Re sult Performing Organization Address City/[facility]/ZIP Co de Phone Number [facility] [address] [place] [address] * (ABNORMAL) Lupus anticoagulant (08/23/2024 2:04 PM EDT) Lupus Anticoagulant Result Lupus anticoagulant (LA) detected by dRVVT only. Testing is negative by LA-sensitive aPTT assay. Recommend repeat testing at or greater than 12 weeks from date of this collection to confirm lupus anticoagulant is persistent. 08/24/2024 2:59 PM EDT [facility] aPTT Lupus Anticoagulant Sensitive 52.1(H) <=41.0 sec LAB COAGULATION METHOD 08/24/2024 2:59 PM EDT [facility] Staclot without Phospholipid 51.5 sec LAB COAGULATION METHOD 08/24/2024 2:59 PM EDT [facility] Staclot with Phospholipid 49.3 sec LAB COAGULATION METHOD 08/24/2024 2:59 PM EDT [facility] Staclot Delta 2.2 <8.0 sec LAB COAGULATION METHOD 08/24/2024 2:59 PM EDT [facility] DRVVT Screen 81.4 sec LAB COAGULATION METHOD 08/24/2024 2:59 PM EDT [facility] DRVVT Screen Ratio 10.18(H) <1.20 LAB COAGULATION METHOD 08/24/2024 2:59 PM EDT [facility] DRVVT Confirmation 57.8 sec LAB COAGULATION METHOD 08/24/2024 2:59 PM EDT [facility] DRVVT Confirmation Ratio 1.62 LAB COAGULATION METHOD 08/24/2024 2:59 PM EDT [facility] DRVVT Screen Ratio/Confirmati on Ratio 6.28(H) <1.20 LAB COAGULATION METHOD 08/24/2024 2:59 PM EDT [facility] Blood Venous blood specimen / Unknown Venipuncture / Unknown 08/23/2024 2:04 PM EDT 08/23/2024 2:04 PM EDT us Anu Méndez APRN LAB BLOOD ORDERABLES Final Re sult [facility] [address] [place] [address] * DRVVT (08/23/2024 2:04 PM EDT) Blood Venous blood specimen / Unknown Venipuncture / Unknown 08/23/2024 2:04 PM EDT 08/23/2024 2:04 PM EDT us Anu W Méndez TEAM LEAD LAB BLOOD ORDERABLES Final Re sult Performing Organization Address City/[facility]/ZIP Co de Phone Number [facility] [address] [place] [address] * Antithrombin III (08/23/2024 2:04 PM EDT) Antithrombin III 94 90 - 133 % LAB COAGULATION METHOD 08/23/2024 5:56 PM EDT [facility] Blood Venous blood specimen / Unknown Venipuncture / Unknown 08/23/2024 2:04 PM EDT 08/23/2024 2:04 PM EDT us Anuradha Méndez TEAM LEAD LAB BLOOD ORDERABLES Final Re sult Performing Organization Address [facility] Co de Phone Number [facility] [address] [place] [address] * ECG Adult (Now - Performed in your clinic) (08/23/2024 1:48 PM EDT) EKG DIAGNOSIS CLASS Abnormal MUSE ECG Ventricular Rate 63 BPM MUSE ECG Atrial Rate 63 BPM MUSE ECG UT Interval 238 ms MUSE ECG QRSD Interval 82 ms MUSE ECG QT Interval 420 ms MUSE ECG QTC Interval 429 ms MUSE ECG P Loving 38 degrees MUSE ECG R Loving -43 degrees MUSE ECG T Wave Loving 27 degrees MUSE ECG Diagnosis Sinus rhythm with 1st degree AV block MUSE ECG Diagnosis Left axis deviation MUSE ECG Diagnosis Inferior infarct , age undetermined MUSE ECG Diagnosis Abnormal ECG MUSE ECG Diagnosis MUSE ECG Diagnosis Confirmed by Inocente Vo ([id number]) on 08/23/2024 3:10:06 PM MUSE ECG 08/23/2024 1:48 PM EDT 08/23/2024 3:10 PM EDT us Anuradha Méndez TEAM LEAD ECG ORDERABLES Final Result Performing Organization Address [facility] Co de Phone Number MUSE ECG from Last 3 Months Insurance [facility] MEDICAID Care Teams Construction Equipment Mechanic Helper Relationship Specialty Start Date End Date Sathish Clayton MD [address] [place] [id number] PCP - General 06/20/20
--- OUTSIDE RECORDS SUMMARY | 2024-11-22 14:54 | XMS_ITS | Encounter Summary ---
Author Organization [facility] Address [address] [id number] Care Team Providers Care Buyer Renter Name Role Phone Sathish Clayton MD Primary Care Provider [phone] Encounter Details Date Type Department Care Team (Late Contact Info) Description 09/27/2024 External Documentati on Encounter [facility] [address] , [address] [place] [address] Dorothy oJrge RN CH-ADULT ECMO Social History Tobacco Use [...] Upcoming Encounters Date Type Department Care Team ([facility] Contact Info) Description 08/29/2025 1:30 PM EDT Office Visit [facility] [address] , [address] [place] [address] Anu Méndez, ECONOMIC SPECIALIST [address] [place] [address] documented as of this encounter [...] documented as of this encounter Care Teams Buyer Renter Relationship Specialty Start Date End Date Sathish Clayton MD [address] [id number] PCP - General 06/20/20 documented as of this encounter
--- OUTSIDE RECORDS SUMMARY | 2024-11-22 14:54 | XMS_ITS | Clinical Summary ---
Author Organization [facility] Address [address] [place] [address] Phone Care Team Providers Care Supervisor Commissary Production Name Role Phone Unavailable Primary Care Provider [...]
--- OUTSIDE RECORDS SUMMARY | 2024-11-22 14:54 | XMS_ITS | Encounter Summary ---
Author Organization [facility] Address [address] [place] [address] Care Team Providers Care Wind Power Project Manager Name Role Phone Sathish Clayton MD Primary Care Provider [phone] Encounter Details Date Type Department Care Team (Late Contact Info) Description 09/26/2024 Telephone [facility] [place] [address], [address] [place] [address] Anu Méndez APRN [address] [place] [address] Social History Tobacco Use Types [...] Méndez APRN - 09/26/2024 11:19 AM EDT [facility] that I was trying to reach patient's mother to review recent Holter monitor results. Claudia Méndez APRN documented in this encounter Plan of Treatment Upcoming Encounters Date Type Department Care Team (Late Contact Info) Description 08/29/2025 1:30 PM EDT Office Visit [facility] [place] [address] [facility], [address] [place] [address] Anu Méndez, GENERAL EDUCATION PROFESSOR [address] [place] [address] documented as of this encounter [...] documented as of this encounter Care Teams Wind Power Project Manager Relationship Specialty Start Date End Date Sathish Clayton MD [address] [place] [address] PCP - General 06/20/20 documented as of this encounter
[2024-11-22 16:31] LABS: Hemoglobin A1C 5.2 % (4.0-6.0)
[2024-11-26 15:15] LABS: Albumin 3.5 g/dL (2.9-4.4); Alpha-1-Globulin 0.2 g/dL (0.0-0.4); Alpha-2-Globulin 0.8 g/dL (0.4-1.0); Gamma Globulin 2.0 g/dL (0.4-1.8)
== END 2024-11-22 23:59 | disposition home or self-care (01) ==
LOC: LAB 14:52
PROVIDERS: PCP Family Medicine; Visit Provider Family Medicine
DX: R73.9 Hyperglycemia, unspecified (principal); R77.9 Abnormality of plasma protein, unspecified
CPT/HCPCS: 36415; 83036; 84155

== ENCOUNTER 2024-12-20 14:49 | Outpatient (CLI) | payer MEDICAID, SELFPAY ==
--- OUTSIDE RECORDS SUMMARY | 2024-12-20 14:52 | XMS_ITS | Clinical Summary ---
Author Organization [facility] Address [address] [place] [address] Care Team Providers Care Reconciliation Analyst Name Role Phone Sathish Clayton MD Primary Care Provider [phone] Allergies No known active allergies Medications atorvastatin (Lipitor) 10 MG tablet 08/02/2022 Active Vitamin D3 1.25 MG (93831 UT) capsule Take 1 capsule (50,000 Units) [...] Team Description 09/27/2024 External Documentati on Encounter [facility] [place] [address] [facility] [place] [address] Dorothy Jorge RN 09/26/2024 Telephone [facility] [address] [place] [address] Anu Méndez APRN 09/26/2024 Telephone [facility] [address] [facility], [address] [place] [address] Anu Méndez, MOTION STUDY ANALYST from Last 3 Months Family History Medical [...] Description 08/29/2025 1:30 PM EDT Office Visit [facility] [address] [facility] [place] [address] Anu Méndez, MOTION STUDY ANALYST [address] [place] [address] Health Maintenance Due Date Last [...] - Td or Tdap) 09/25/2019 09/24/2009, 04/12/1996 [id number] Vaccine ( season) 2024 11/25/2021, 10/29/2020, 05/21/2020, [...] patient's age to complete this topic Insurance [facility] MEDICAID Care Teams Reconciliation Analyst Relationship Specialty Start Date End Date Sathish Clayton MD [address] [facility] [place] [address] PCP - General 06/20/20
--- OUTSIDE RECORDS SUMMARY | 2024-12-20 14:52 | XMS_ITS | Clinical Summary ---
Author Organization [facility] Address [address] [place] [address] Phone Care Team Providers Care Medical Sociologist Name Role Phone Unavailable Primary Care Provider [...] Zoster (1 of 2) 2014 COVID-19 Vaccine (2024-2 6 season) 2024 Influenza Vaccine (#1) 2024 Hepatitis B Vaccine Aged Out No longe r eligible based on patient's age to complete this topic Meningococcal B Vaccine Aged Out No l onger eligible based on patient's age to complete this topic Insurance MEDICAID
--- OUTSIDE RECORDS SUMMARY | 2024-12-20 14:52 | XMS_ITS | Encounter Summary ---
Author Organization [facility] Address [address] [place] [address] Care Team Providers Care Social Organization Professor Name Role Phone Sathish Clayton MD Primary Care Provider [phone] Encounter Details Date Type Department Care Team (Late st Contact Info) Description 09/05/2024 Results Follow-Up [facility] [place] [address] [facility] [place] [id number] Anu Méndez, GEOPHYSICAL LABORATORY CHIEF [address] [place] [address] Social History Tobacco Use Types [...] * Result Encounter Note - Anu Méndez, GEOPHYSICAL LABORATORY CHIEF - 09/05/2024 12:58 PM EDT Dorothy- Can [...] Description 08/29/2025 1:30 PM EDT Office Visit [facility] [place] [address] [facility], [address] [place] [address] Anu Méndez APRN [address] [place] [address] documented as of this encounter [...] documented as of this encounter Care Teams Social Organization Professor Relationship Specialty Start Date End Date Sathish Clayton MD [address] [place] [address] PCP - General 06/20/20 documented as of this encounter
[2024-12-25 17:12] LABS: PTT-LA 40.2 sec (0.0-43.5); dRVVT Confirm 1.4 ratio (0.8-1.2)
== END 2024-12-20 23:59 | disposition home or self-care (01) ==
LOC: LAB 14:51
PROVIDERS: PCP Family Medicine; Visit Provider Nurse Practitioner Primary Care
DX: Z86.718 Personal history of other venous thrombosis and embolism (principal)
CPT/HCPCS: 36415; 85613; 85732